=== PATIENT | female | born 1930 | race Caucasian/White ===

== ENCOUNTER 2017-01-10 17:42 | Inpatient (IN) | payer OTHER ==
[2017-01-10 17:53] VITALS: BMI 39.2
[2017-01-10] MEDS ORDERED: Sodium Chloride 0.9% 500 ML IV ONE ×2 (18:24→18:32)
[2017-01-10] MEDS ORDERED: cefTRIAXone IV 1 gm in Dextros 50 ML IV ONE (18:24)
[2017-01-10] MEDS ORDERED: Azithromycin 500 MG in Sodium Chloride 0.9% 250 ML IV STA (18:24)
[2017-01-10] MEDS ORDERED: Albuterol-Ipratrop 3 mg / 0.5 (3 ml) UD INH STA (18:25)
--- NOTE | 2017-01-10 18:32 | C.PDOC ---
History Of Present Illness 86 y/o female, with history of pneumonia, presents to the ED for evaluation of cough, congestion, wheezing, and subjective fever for the last 3 days. Denies history of diabetes. Otherwise, denies any chest pain, shortness of breath, headache, nausea, vomiting, diarrhea, abdominal pain, dizziness or lightheadedness. Time Seen by Provider: 01/10/17 18:19 Chief Complaint (Nursing): Cough, Cold, Congestion History Per: Patient History/Exam Limitations: no limitations Onset/Duration Of Symptoms: Days (3) Current Symptoms Are (Timing): Still Present Location Of Pain: None Sick Contacts (Context): None Associated Symptoms: Fever, Cough, Nasal Congestion. denies: Sore Throat, Sputum, Neck Pain, Myalgias, Nausea, Vomiting, Diarrhea Ear Symptoms: Bilateral: None Recent travel outside of the [place]: No Additional History Per: Patient Past Medical History Reviewed: Historical Data, Nursing Documentation, Vital Signs Vital Signs: Last Vital Signs Temp 101.4 F H 01/10/17 18:10 Pulse 81 01/10/17 17:53 Resp 18 01/10/17 18:10 BP 135/82 01/10/17 17:53 Pulse Ox 95 01/10/17 19:15 - Medical History PMH: Atrial Fibrillation, CAD, CHF, HTN, Hypercholesterolemia, Pneumonia Denies: Chronic Kidney Disease Family History: States: Unknown Family Hx - Social History Hx Tobacco Use: No Hx Alcohol Use: No Hx Substance Use: No - Immunization History Hx Tetanus Toxoid Vaccination: No Hx Influenza Vaccination: No Hx Pneumococcal Vaccination: No Review Of Systems Except As Marked, All Systems Reviewed And Found Negative. Constitutional: Positive for: Fever ENT: Positive for: Nose Congestion. Negative for: Ear Pain, Nose Discharge, Mouth Pain, Throat Pain, Throat Swelling Cardiovascular: Negative for: Chest Pain, Palpitations, Light Headedness Respiratory: Positive for: Cough, Wheezing. Negative for: Shortness of Breath, Hemoptysis, Sputum Gastrointestinal: Negative for: Nausea, Vomiting, Abdominal Pain Skin: Negative for: Rash, Bruising Neurological: Negative for: Headache, Dizziness Physical Exam - Physical Exam Appears: Non-toxic, No Acute Distress, Other (obese) Skin: Normal Color, Warm, Dry, No Rash Head: Atraumatic, Normacephalic Eye(s): bilateral: Normal Inspection Oral Mucosa: Moist Neck: Normal ROM, Supple Cardiovascular: Rhythm Regular, No Murmur Respiratory: No Rales, Rhonchi (scattered), Wheezing (scattered) Gastrointestinal/Abdominal: Soft, No Tenderness Extremity: Normal ROM, No Pedal Edema, No Deformity Neurological/Psych: Oriented x3, Normal Speech ED Course And Treatment - Laboratory Results Result Diagrams: 01/10/17 18:30 01/10/17 18:30 Lab Interpretation: Abnormal ECG: Interpreted By Me ECG Rhythm: V Paced ECG Interpretation: Normal, No Changes From Prior Rate From EC O2 Sat by Pulse Oximetry: 95 (RA) Pulse Ox Interpretation: Normal - Radiology CXR: Interpreted by Me CXR Interpretation: Yes: Infiltrates Progress Note: steroids, rocephin, azithromycin, duoneb Reevaluation Time: 19:13 Reassessment Condition: Improved - Physician Consult Information Outcome Of Conversation: 1900: d/w Dr. Griggs- Hospitalist [employer]- ok to obs Medical Decision Making Medical Decision Making: recurrent PNA, consider atypical PNA 2 prior PNA Disposition Doctor Will See Patient In The: Hospital Counseled Patient/Family Regarding: Studies Performed, Diagnosis - Disposition Disposition: HOSPITALIZED Disposition Time: 19:14 Condition: GOOD - Clinical Impression Clinical Impression: Pneumonia - Scribe Statement The provider has reviewed the documentation as recorded by the Scribshawn Tucker All medical record entries made by the Miriamibshwan were at my direction and personally dictated by me. I have reviewed the chart and agree that the record accurately reflects my personal performance of the history, physical exam, medical decision making, and the department course for this patient. I have also personally directed, reviewed, and agree with the discharge instructions and disposition.
[2017-01-10 18:49] LABS: BASO % 0.2 % (0.0-2.0); EOS % 0.2 % (0.0-4.0); HEMATOCRIT 38.8 % (34.0-47.0); LYMPH # 2.1 K/uL (1.0-4.3); LYMPH % 9.4 % (20.0-40.0); MEAN CORPUSCULAR HEMOGLOBIN 23.6 pg (27.0-31.0); MEAN CORPUSCULAR HGB CONC 32.1 g/dL (33.0-37.0); MEAN PLATELET VOLUME 9.3 fL (7.2-11.7); MONO # 2.9 K/uL (0.0-0.8); MONO % 12.7 % (0.0-10.0); NRBC % 0.2 % (0.0-2.0); PLATELET COUNT 307 K/uL (130-400); RED CELL DISTRIBUTION WIDTH 17.5 % (11.5-14.5)
[2017-01-10 18:50] LABS: POTASSIUM 4.9 mmol/L (3.6-5.2)
[2017-01-10] MEDS ORDERED: Albuterol-Ipratrop 3 mg / 0.5 (3 ml) UD ONE (18:50)
[2017-01-10 18:51] LABS: MEAN CELL VOLUME 73.5 fL (81.0-99.0); WHITE BLOOD COUNT 22.6 K/uL (4.8-10.8)
[2017-01-10 18:53] LABS: ALB/GLOB RATIO 0.8 (1.0-2.1); BILIRUBIN,TOTAL 1.3 mg/dL (0.2-1.3); TOTAL PROTEIN 8.5 g/dL (6.3-8.3)
[2017-01-10 18:54] LABS: CALCIUM 8.8 mg/dl (8.6-10.4)
[2017-01-10 19:05] LABS: TROPONIN I 0.037 ng/mL (0.00-0.120)
[2017-01-10] MEDS ORDERED: cefTRIAXone IV 1 gm in Dextros 50 ML IVPB ONE (19:05)
[2017-01-10 19:13] LABS: BASOPHIL 2 % (0-2); EOSINOPHIL 1 % (0-4); NEUTROPHIL 68 % (50-75); TOTAL CELLS COUNTED 100
[2017-01-10 19:15] LABS: GIANT PLATELETS PRESENT
[2017-01-10] MEDS ORDERED: Azithromycin 500mg/250ML NS 500 MG/250 ML BAG IVPB ONE (19:49)
[2017-01-10 20:12] VITALS: RESP 20
--- NOTE | 2017-01-10 23:51 | CP.PCM.HP ---
<Axel Solis - Last Filed: 01/10/17 23:57> History of Present Illness - History of Present Illness History of Present Illness: PGY-[address] Griggs HPI: This is an 86 y/o female with a PMH including HTN, CHF, Afib, iron deficiency anemia, HLD and gastritis who presents to the ED with a CC of Cough for 3 days duration. It is a productive cough with yellow/white sputum. It is associated with a fever, nasal congestion. She denies N/V, diarrhea, SOB, dizziness, GERMAN, CP, abdominal pain or blood in the urine. She denies neck pain. She has poor vision in her L.eye. Denies myalgias. No DM. Her daughter was sick with a cough and a fever last week that was treated with antibiotics and resolved. She denies recent travel. PMH: HTN, CHF, Afib, Fe def. anemia, HLD, gastritis PSH: none FH: noncontributory SH: - smoking, -drinking, Lives with her daughter Meds: Eliquis 5mg PO BID, Lasix, hydralazine, Losarten, Simvistatin All: NKA Present on Admission - Present on Admission Any Indicators Present on Admission: No History of DVT/PE: No History of Uncontrolled Diabetes: No Urinary Catheter: No Decubitus Ulcer Present: No History Surgical Site Infection Following: None Review of Systems - Constitutional Constitutional: As Per HPI - EENT Eyes: As Per HPI Ears: As Per HPI - Breasts Breasts: As Per HPI - Cardiovascular Cardiovascular: As Per HPI - Respiratory Respiratory: As Per HPI - Gastrointestinal Gastrointestinal: As Per HPI - Genitourinary Genitourinary: As Per HPI - Reproductive: Female Reproductive:Female: As Per HPI - Menstruation Menstruation: As Per HPI - Musculoskeletal Musculoskeletal: As Per HPI - Integumentary Integumentary: As Per HPI - Neurological Neurological: As Per HPI - Psychiatric Psychiatric: As Per HPI - Endocrine Endocrine: As Per HPI - Hematologic/Lymphatic Hematologic: As Per HPI Past Patient History - Infectious Disease Hx of Infectious Diseases: None - Past Medical History & Family History Past Medical History?: Yes - Past Social History Smoking Status: Never Smoked - CARDIAC Hx Atrial Fibrillation: Yes Hx Congestive Heart Failure: Yes Hx Hypercholesterolemia: Yes Hx Hypertension: Yes - PULMONARY Hx Pneumonia: Yes - NEUROLOGICAL Hx Neurological Disorder: No - HEENT Hx HEENT Problems: No Hx Blind: Yes (left eye) Hx Cataracts: Yes (left eye) - RENAL Hx Chronic Kidney Disease: No - ENDOCRINE/METABOLIC Hx Endocrine Disorders: No - HEMATOLOGICAL/ONCOLOGICAL Hx Blood Disorders: No - INTEGUMENTARY Hx Dermatological Problems: No - MUSCULOSKELETAL/RHEUMATOLOGICAL Hx Falls: No - GASTROINTESTINAL Hx Gastrointestinal Disorders: No - GENITOURINARY/GYNECOLOGICAL Hx Genitourinary Disorders: No - PSYCHIATRIC Hx Substance Use: No - SURGICAL HISTORY Hx Surgeries: Yes Other/Comment: PACEMAKER PER PATIENT [address] Moeller - ANESTHESIA Hx Anesthesia: Yes Hx Anesthesia Reactions: No Hx Malignant Hyperthermia: No Has any member of the family had a problem w/ anesthesia?: No Meds Allergies/Adverse Reactions: Allergies Allergy/AdvReac Type Severity Reaction Status Date / Time No Known Allergies Allergy Verified 01/10/17 17:53 Physical Exam - Constitutional Appears: Non-toxic, No Acute Distress - Head Exam Head Exam: ATRAUMATIC, NORMAL INSPECTION, NORMOCEPHALIC - Eye Exam Eye Exam: absent: Conjunctival injection (Keeps left eye closed. can open on commmand), Periorbital swelling, Periorbital tenderness - ENT Exam ENT Exam: Mucous Membranes Moist. absent: Mucous Membranes Dry - Neck Exam Neck exam: Negative for: Tenderness - Respiratory Exam Respiratory Exam: Decreased Breath Sounds, Wheezes - Cardiovascular Exam Cardiovascular Exam: REGULAR RHYTHM, RRR. absent: Bradycardia, Tachycardia, Gallop, Rubs - GI/Abdominal Exam GI & Abdominal Exam: Normal Bowel Sounds, Soft. absent: Distended, Firm, Guarding, Tenderness - Extremities Exam Extremities exam: Positive for: tenderness (b/l tibia), pedal pulses present. Negative for: calf tenderness - Neurological Exam Neurological exam: Alert, Oriented x3 - Psychiatric Exam Psychiatric exam: Normal Affect, Normal Mood - Skin Skin Exam: Dry, Intact, Normal Color, Warm Results - Vital Signs Recent Vital Signs: Last Vital Signs Temp 98.9 F 01/10/17 20:30 Pulse 79 01/10/17 20:30 Resp 20 01/10/17 20:30 BP 110/70 01/10/17 20:30 Pulse Ox 96 01/10/17 20:30 - Labs Result Diagrams: 01/10/17 18:30 01/10/17 18:30 Assessment & Plan - Assessment and Plan (Free Text) Assessment: 1. PNA * 8/ CXR - F/U * CT chest w/o contrast - F/U * Urine Legionella Ag - F/U * Rocephin 1g IV QD * Zithromax 500 IV QD * CBC/CMP 2. Afib * Continue home Eliquis 5mg PO BID 3. Diastolic CHF * Hold BP meds until confirmed with pharmacy or family brings in meds 4. HTN * Hold BP meds until confirmed with pharmacy or family brings in meds 5. Elevated LFT * Abdominal US - F/U * Hepatits panel 6. PPX * Eliquis 5mg PO BID * Ambulate - Date & Time Date: 01/11/17 Time: 00:12 Decision To Admit - Admit Certification Admit to Inpatient:: . - InPatient: Physician Admission Certification:: . - . Bed Request Type: Regular Admitting Physician: Sanford Griggs <Sanford Griggs Last Filed: 01/11/17 06:51> Results - Vital Signs Recent Vital Signs: Last Vital Signs Temp 98.1 F 01/11/17 00:00 Pulse 76 01/11/17 00:00 Resp 20 01/11/17 00:00 BP 120/69 01/11/17 00:00 Pulse Ox 98 01/11/17 00:00 - Labs Result Diagrams: 01/10/17 18:30 01/10/17 18:30 Labs: Laboratory Results - last 24 hr 01/11/17 01/11/17 03:17 Unknown Urine Color [place]uvia Urine Clarity Hazy Urine pH 5.0 Ur Specific [place] 1.017 Urine Protein 1+ H Urine Glucose (UA) Normal Urine Ketones Negative Urine Blood Negative Urine Nitrate Negative Urine Bilirubin Negative Urine Urobilinogen 2.0 H Ur Leukocyte Esterase 1+ H Urine WBC (Auto) 14 H Urine RBC (Auto) 3 Ur Squamous Epith Cells 17 H Hyaline Casts 3-5 H Ur L.pneumophila Ag Negative Attending/Attestation - Attestation I have personally seen and examined this patient.: Yes I have fully participated in the care of the patient.: Yes I have reviewed all pertinent clinical information: Yes Notes (Text): Assessment: * Fever with chill, elevated WBC, clinical h/o cough x3 days, CXR suspicious of LLL infiltrate as diaphragm can't be easily visualized, had sick contact. * H/o afib, tachy allan syn, s/p pacemaker, pulm htn, diastolic dysfunction, clinically not in chf * Mild elevated LFT, unclear etiology * CRI creat around 1.4 Plan * Rocephin/Zithromax iv, rapid flu * CT chest without contrast to confirm and see extent of disease * USG liver/hepatitis pannel * Hold on bp meds as bp borderline, meanwhile also confirm home dose of meds, will continue eliquis for now. * See orders for detail.
[2017-01-11 03:24] LABS: RBC URINE 3 /hpf (0-3); URINE BILIRUBIN NEGATIVE (NEGATIVE); URINE BLOOD NEGATIVE (NEGATIVE); URINE COLOR Amber (YELLOW); URINE GLUCOSE (UA) NORMAL (Normal); URINE KETONE NEGATIVE (NEGATIVE); URINE LEUKOCYTE ESTERASE 1+ Leu/uL (Negative); URINE PROTEIN 1+ mg/dL (NEGATIVE); WBC URINE 14 /hpf (0-5)
--- NOTE | 2017-01-11 07:45 | RAD ---
PROCEDURE: CHEST RADIOGRAPH, 1 VIEW HISTORY: Shortness of breath COMPARISON: 12/28/2015 FINDINGS: LUNGS: Diffuse increased interstitial lung markings suggestive for edema and or infiltrate. Patchy bibasilar airspace opacities with small left pleural effusion. Mammilated right hemidiaphragm. Right hilar prominence. PLEURA: As above. CARDIOVASCULAR: Cardiomegaly. Left-sided pacemaker. OSSEOUS STRUCTURES: Degenerative changes in the spine and shoulders. VISUALIZED UPPER ABDOMEN: Normal. OTHER FINDINGS: None. IMPRESSION: Diffuse increased interstitial lung markings suggestive for edema and or infiltrate. Patchy bibasilar airspace opacities with small left pleural effusion. Mammilated right hemidiaphragm. Right hilar prominence.
[2017-01-11 08:25] LABS: BASO % 0.2 % (0.0-2.0); HEMATOCRIT 38.2 % (34.0-47.0); LYMPH # 0.8 K/uL (1.0-4.3); LYMPH % 6.1 % (20.0-40.0); MEAN CORPUSCULAR HEMOGLOBIN 23.1 pg (27.0-31.0); MEAN CORPUSCULAR HGB CONC 31.3 g/dL (33.0-37.0); MEAN PLATELET VOLUME 9.7 fL (7.2-11.7); MONO # 0.3 K/uL (0.0-0.8); MONO % 2.4 % (0.0-10.0); PLATELET COUNT 304 K/uL (130-400); RED CELL DISTRIBUTION WIDTH 17.4 % (11.5-14.5); WHITE BLOOD COUNT 13.5 K/uL (4.8-10.8)
[2017-01-11 08:35] LABS: INR 1.3
[2017-01-11 08:38] LABS: POTASSIUM 4.6 mmol/L (3.6-5.2)
[2017-01-11 08:40] LABS: ALB/GLOB RATIO 0.8 (1.0-2.1); BILIRUBIN,TOTAL 0.5 mg/dL (0.2-1.3); TOTAL PROTEIN 8.1 g/dL (6.3-8.3)
[2017-01-11 08:41] LABS: CALCIUM 9.1 mg/dl (8.6-10.4)
--- NOTE | 2017-01-11 08:41 | CP.PCM.PN ---
<Mode Rogers - Last Filed: 01/11/17 21:38> Subjective - Date & Time of Evaluation Date of Evaluation: 01/11/17 Time of Evaluation: 13:00 - Subjective Subjective: Patient seen and examined at bedside. Patient states that she feels better than yesterday. Patient reports productive cough but denies SOB. Patient denies fevers, chills, chest pain, palpitations. Objective - Vital Signs/Intake and Output Vital Signs (last 24 hours): Temp Pulse Resp BP Pulse Ox 97.9 F 75 20 147/80 99 01/11/17 08:00 01/11/17 08:00 01/11/17 08:00 01/11/17 08:00 01/11/17 08:00 Intake and Output: 01/11/17 01/11/17 06:59 18:59 Intake Total 180 Output Total 0 Balance 180 - Medications Medications: Current Medications Apixaban (Eliquis) 5 mg PO BID [facility]ANT Famotidine (Pepcid) 20 mg PO BID [facility] Azithromycin 500 mg/ Sodium (Chloride) 250 mls @ 250 mls/hr IVPB DAILY BR[facility]ANT Ceftriaxone Sodium 1 gm/ (Sodium Chloride) 100 mls @ 100 mls/hr IVPB DAILY BRYANT - Labs Labs: 01/11/17 08:10 01/11/17 08:10 PT 14.5 SECONDS (9.7-12.2) H 01/11/17 08:10 INR 1.3 01/11/17 08:10 APTT 34 SECONDS (21-34) 01/11/17 08:10 - Constitutional Appears: No Acute Distress - Head Exam Head Exam: ATRAUMATIC, NORMAL INSPECTION, NORMOCEPHALIC - Eye Exam Eye Exam: EOMI, PERRL - ENT Exam ENT Exam: Mucous Membranes Moist - Respiratory Exam Respiratory Exam: Decreased Breath Sounds, Wheezes - Cardiovascular Exam Cardiovascular Exam: REGULAR RHYTHM, +S1, +S2 - GI/Abdominal Exam GI & Abdominal Exam: Soft, Normal Bowel Sounds - Neurological Exam Neurological Exam: Alert, Awake, Oriented x3 - Skin Skin Exam: Dry, Intact, Normal Color, Warm Assessment and Plan - Assessment and Plan (Free Text) Plan: 1. Pneumonia 01/10/17 CXR: Diffuse increased interstitial lung markings suggestive for edema and or infiltrate. Patchy bibasilar airspace opacities with small left pleural effusion. Mammilated right hemidiaphragm. Right hilar prominence. 01/11/17 CT chest without contrast: Small left pleural effusion. Prominent consolidative changes with air bronchograms seen within the superior segment of the left lower lobe with adjacent compressive atelectasis. Post treatment followup is recommended to exclude underlying lesion. More inferiorly in the left lower lobe there is adjacent atelectasis at the level of the effusion. Scattered emphysematous changes. Influenza neg Legionella neg * Rocephin 1g IV QD * Zithromax 500 IV QD 2. Afib * Continue home Eliquis 5mg PO BID 3. Diastolic CHF * Hold BP meds until confirmed with pharmacy or family brings in meds 4. HTN * Hold BP meds until confirmed with pharmacy or family brings in meds 5. Elevated LFT * Abdominal US - F/U * Hepatits panel neg 6. PPX * Eliquis 5mg PO BID * Ambulate Case discussed with Dr. Rhodes. Mode Rogers PGY1 <Ilir Rhodes - Last Filed: 02/14/17 13:03> Objective - Vital Signs/Intake and Output Vital Signs (last 24 hours): Temp Pulse Resp BP Pulse Ox 98.1 F 66 20 114/75 95 01/14/17 15:00 01/14/17 15:00 01/14/17 15:00 01/14/17 15:00 01/14/17 15:00 - Labs Labs: 01/14/17 07:11 01/14/17 07:11 PT 14.5 SECONDS (9.7-12.2) H 01/11/17 08:10 INR 1.3 01/11/17 08:10 APTT 34 SECONDS (21-34) 01/11/17 08:10 Attending/Attestation - Attestation I have personally seen and examined this patient.: Yes I have fully participated in the care of the patient.: Yes I have reviewed all pertinent clinical information, including history, physical exam and plan: Yes Notes (Text): Pneumonia Afib Acute Diastolic CHF HTN Elevated LFT - workup in progress
[2017-01-11] MEDS: Azithromycin 500 MG in Sodium Chloride 0.9% 250 ML IVPB SCH (09:33)
--- NOTE | 2017-01-11 09:37 | US ---
Abdominal ultrasound History: Elevated liver enzymes. Comparison: None available. Technique: Real-time sonography was performed through the abdomen. Findings: Liver: 12.7 centimeters in length. Increased echogenicity of the hepatic parenchymal cortex suggestive for fatty infiltration versus hepatic parenchymal disease. Clinical correlation. Gallbladder appears preserved. No calculi or sludge. Normal wall thickness of 2.7 millimeters. Negative sonographic Caballero's sign. Common bile duct measures 2.4 millimeters, within normal limits. Pancreas not well visualized. Spleen measures 5.9 x 3.2 centimeters, diminutive, otherwise preserved. Visualized aorta and IVC are grossly preserved. Right kidney: Diminutive. 9.2 x 3.7 x 4.3 centimeters. Increased echogenicity of the renal cortex suggestive for medical renal disease. No calculi or hydronephrosis. Left kidney: 8.2 x 4.9 x 4.4 centimeters. Diminutive. Increased echogenicity of the renal cortices suggestive for medical renal disease. No calculi or hydronephrosis. Impression: Increased echogenicity of the hepatic parenchymal cortex suggestive for fatty infiltration versus hepatic parenchymal disease. Clinical correlation. Limited visualization of the pancreas. Diminutive appearance of the spleen. Diminutive appearance of the bilateral kidneys. Increased echogenicity of the bilateral renal cortices suggestive for medical renal disease.
[2017-01-11 10:38] LABS: NEUTROPHIL 89 % (50-75); TOTAL CELLS COUNTED 100
--- NOTE | 2017-01-11 10:59 | CT ---
CT chest History: Cough. Comparison: X-ray dated 01/10/2017 Technique: Multiple contiguous axial images were performed through the chest without the use of intravenous contrast. Subsequently, sagittal and coronal reformatted images were obtained. This CT exam was performed using one or more of the following dose reduction techniques: Automated exposure control, adjustment of the mA and/or kV according to patient size, and/or use of iterative reconstruction technique. Findings: Emphysematous changes in the lung graf. Small left pleural effusion. Right lung: Apical pleural thickening. Scattered emphysematous changes. Scattered areas of atelectasis. Left lung: Small left pleural effusion. Prominent consolidative changes with air bronchograms seen within the superior segment of the left lower lobe with adjacent compressive atelectasis. Post treatment followup is recommended to exclude underlying lesion. More inferiorly in the left lower lobe there is adjacent atelectasis at the level of the effusion. Scattered emphysematous changes. Trachea thru central airways are patent. Left-sided pacemaker. No significant axillary adenopathy. Heterogeneous thyroid with a suggestion of a partially calcified nodule in the left lobe of the thyroid. Correlation with ultrasound may be helpful. Calcification and plaque within the aorta. Aneurysmal prominence of the ascending thoracic aorta measuring up to 4.7 centimeters. 1.5 centimeter right precarinal lymph node. Prominence of the main pulmonary artery measuring up to 4.7 centimeters. Coronary calcifications. Nodular thickening of the adrenal glands. Mild fatty atrophy of the pancreas. Small hiatal hernia. Prominent degenerative changes in the spine. Loss of height of the superior endplate of a lower thoracic vertebral body. Impression: 1. Small left pleural effusion. Prominent consolidative changes with air bronchograms seen within the superior segment of the left lower lobe with adjacent compressive atelectasis. Post treatment followup is recommended to exclude underlying lesion. More inferiorly in the left lower lobe there is adjacent atelectasis at the level of the effusion. Scattered emphysematous changes. 2. Emphysematous changes in the lung graf. 3. Heterogeneous thyroid with a suggestion of a partially calcified nodule in the left lobe of the thyroid. Correlation with ultrasound may be helpful. 4. Calcification and plaque within the aorta. Aneurysmal prominence of the ascending thoracic aorta measuring up to 4.7 centimeters. 5. 1.5 centimeter right precarinal lymph node. 6. Prominence of the main pulmonary artery measuring up to 4.7 centimeters. 7. Coronary calcifications. 8. Nodular thickening of the adrenal glands. 9. Mild fatty atrophy of the pancreas. 10. Small hiatal hernia. 11. Prominent degenerative changes in the spine. Loss of height of the superior endplate of a lower thoracic vertebral body.
[2017-01-11] MEDS ORDERED: Sodium Chloride 0.9% 1,000 ML IV ONE (13:03)
[2017-01-12 08:21] LABS: BASO # 0.1 K/uL (0.0-0.2); BASO % 0.6 % (0.0-2.0); HEMATOCRIT 34.7 % (34.0-47.0); LYMPH # 1.5 K/uL (1.0-4.3); LYMPH % 8.8 % (20.0-40.0); MEAN CELL VOLUME 74.2 fL (81.0-99.0); MEAN CORPUSCULAR HEMOGLOBIN 23.6 pg (27.0-31.0); MEAN CORPUSCULAR HGB CONC 31.8 g/dL (33.0-37.0); MEAN PLATELET VOLUME 9.4 fL (7.2-11.7); MONO # 1.3 K/uL (0.0-0.8); MONO % 7.7 % (0.0-10.0); PLATELET COUNT 299 K/uL (130-400); RED CELL DISTRIBUTION WIDTH 17.6 % (11.5-14.5); WHITE BLOOD COUNT 17.1 K/uL (4.8-10.8)
[2017-01-12 08:37] LABS: ALB/GLOB RATIO 0.7 (1.0-2.1); BILIRUBIN,TOTAL 0.4 mg/dL (0.2-1.3); CALCIUM 8.4 mg/dl (8.6-10.4); TOTAL PROTEIN 7.1 g/dL (6.3-8.3)
[2017-01-12] MEDS ORDERED: Ipratropium 0.02% Inhal Soln (0.5 mg/2.5 ml) UD IH PRN (08:38)
[2017-01-12 10:08] LABS: NEUTROPHIL 85 % (50-75); TOTAL CELLS COUNTED 100
[2017-01-12] MEDS: Azithromycin 500 MG in Sodium Chloride 0.9% 250 ML IVPB SCH (10:33)
[2017-01-12] MEDS: Metoprolol Succinate 25 mg XL Tab PO SCH (12:05)
--- NOTE | 2017-01-12 13:45 | CP.PCM.PN ---
<Mode Rogers - Last Filed: 01/12/17 15:50> Subjective - Date & Time of Evaluation Date of Evaluation: 01/12/17 Time of Evaluation: 11:00 - Subjective Subjective: PGY1 Progress Note for Dr. Rhodes Patient seen and examined at bedside. Patient reports no chest pain or shortness of breath. Patient complains of productive cough with white sputum. Patient denies fevers, chills. Objective - Vital Signs/Intake and Output Vital Signs (last 24 hours): Temp Pulse Resp BP Pulse Ox 97.3 F L 83 20 155/96 H 95 01/12/17 08:00 01/12/17 08:00 01/12/17 08:00 01/12/17 12:05 01/12/17 08:00 Intake and Output: 01/12/17 01/12/17 06:59 18:59 Intake Total 1100 780 Balance 1100 780 - Medications Medications: Current Medications Apixaban (Eliquis) 5 mg PO BID [facility] Last Admin: 01/12/17 09:29 Dose: 5 mg Famotidine (Pepcid) 20 mg PO BID [facility] Last Admin: 01/12/17 09:28 Dose: 20 mg Furosemide (Lasix) 40 mg PO DAILY [facility] Last Admin: 01/12/17 12:05 Dose: 40 mg Azithromycin 500 mg/ Sodium (Chloride) 250 mls @ 250 mls/hr IVPB DAILY [facility] Last Admin: 01/12/17 10:33 Dose: 250 mls/hr Ceftriaxone Sodium 1 gm/ (Sodium Chloride) 100 mls @ 100 mls/hr IVPB DAILY [facility] Last Admin: 01/12/17 09:29 Dose: 100 mls/hr Ipratropium [place] (Atrovent) 0.5 mg IH RQ6 PRN PRN Reason: Shortness of Breath Metoprolol Succinate (Toprol Xl) 25 mg PO DAILY [facility] Last Admin: 01/12/17 12:05 Dose: 25 mg - Labs Labs: 01/12/17 08:05 01/12/17 08:05 PT 14.5 SECONDS (9.7-12.2) H 01/11/17 08:10 INR 1.3 01/11/17 08:10 APTT 34 SECONDS (21-34) 01/11/17 08:10 - Constitutional Appears: No Acute Distress - Head Exam Head Exam: ATRAUMATIC, NORMAL INSPECTION, NORMOCEPHALIC - Eye Exam Eye Exam: EOMI, PERRL - ENT Exam ENT Exam: Mucous Membranes Moist - Respiratory Exam Respiratory Exam: Decreased Breath Sounds, Wheezes - Cardiovascular Exam Cardiovascular Exam: REGULAR RHYTHM, +S1, +S2 - GI/Abdominal Exam GI & Abdominal Exam: Soft, Normal Bowel Sounds. absent: Tenderness - Extremities Exam Additional comments: Varicose veins - Neurological Exam Neurological Exam: Alert, Awake, Oriented x3 - Skin Skin Exam: Dry, Intact, Normal Color, Warm Assessment and Plan - Assessment and Plan (Free Text) Plan: 1. Pneumonia 01/10/17 CXR: Diffuse increased interstitial lung markings suggestive for edema and or infiltrate. Patchy bibasilar airspace opacities with small left pleural effusion. Mammilated right hemidiaphragm. Right hilar prominence. 01/11/17 CT chest without contrast: Small left pleural effusion. Prominent consolidative changes with air bronchograms seen within the superior segment of the left lower lobe with adjacent compressive atelectasis. Post treatment followup is recommended to exclude underlying lesion. More inferiorly in the left lower lobe there is adjacent atelectasis at the level of the effusion. Scattered emphysematous changes. Influenza neg Legionella neg * Rocephin 1g IV QD * Zithromax 500 IV QD * Atrovent Q6H INH * Mucinex 600 mg PO BID 2. Afib * Continue home Eliquis 5mg PO BID 3. Diastolic CHF * Lasix 40 mg PO daily * Need to confirm with [facility] [place] outpatient pharmacy 4. HTN * Toprol XL 25 mg PO daily * Need to confirm BP meds with [facility] [place] outpatient pharmacy 5. Elevated LFT * Abdominal US (01/10/17) - evidence of fatty infiltration of liver parenchyma vs hepatic parenchymal disease * Hepatits panel neg 6. Ascending Aortic Aneurysm * Incidental 4.[address] chest * Consulted Dr. Lund. Help appreciated. 7. PPX * Eliquis 5mg PO BID * Ambulate Case discussed with Dr. Rhodes. Mode Rogers PGY1 <Ilir Rhodes - Last Filed: 02/14/17 13:04> Objective - Vital Signs/Intake and Output Vital Signs (last 24 hours): Temp Pulse Resp BP Pulse Ox 98.1 F 66 20 114/75 95 01/14/17 15:00 01/14/17 15:00 01/14/17 15:00 01/14/17 15:00 01/14/17 15:00 - Labs Labs: 01/14/17 07:11 01/14/17 07:11 PT 14.5 SECONDS (9.7-12.2) H 01/11/17 08:10 INR 1.3 01/11/17 08:10 APTT 34 SECONDS (21-34) 01/11/17 08:10 Attending/Attestation - Attestation I have personally seen and examined this patient.: Yes I have fully participated in the care of the patient.: Yes I have reviewed all pertinent clinical information, including history, physical exam and plan: Yes Notes (Text): Pneumonia Afib Acute Diastolic CHF HTN Elevated LFT - workup in progress
--- NOTE | 2017-01-12 16:47 | CP.PCM.CON ---
History of Present Illness - History of Present Illness History of Present Illness: Vascular Surgery - Dr. Lund 86yo F w/ hx of HTN, CHF, Afib, BECCA, HL, who presented to on 01/10 with productive cough x3days. Per pt family members at bedside she has had a cough for 3 days which was productive of yellow sputum. She had associated fevers, chills, and congestion. Pt denies any N/V, SOB/Chest pain, Abdominal pain, Diarrhea. Pt had CXR done in the ED which showed a LLL infiltrate. She was admitted to the hospital and started on Abx for Pneumonia. She subsequently underwent CT Chest which confirmed a LLL pneumonia, an incidentally found to a 4.7cm Ascending thoracic aortic aneurysm. Surgery is consulted for the aneurysm. PMH: HTN, CHF(diastolic), Afib, BECCA, HL, Gastritis PSH: Pacemaker (Dr. Moeller) Nonsmoker Meds; Eliquis, Lasix, Hydralazine, Losartan, Simvastatin NKDA Review of Systems - Review of Systems All systems: reviewed and no additional remarkable complaints except (as per HPI ) Past Patient History - Infectious Disease Hx of Infectious Diseases: None - Past Medical History & Family History Past Medical History?: Yes - Past Social History Smoking Status: Never Smoked - CARDIAC Hx Atrial Fibrillation: Yes Hx Congestive Heart Failure: Yes Hx Hypercholesterolemia: Yes Hx Hypertension: Yes - PULMONARY Hx Pneumonia: Yes - NEUROLOGICAL Hx Neurological Disorder: No - HEENT Hx HEENT Problems: No Hx Blind: Yes (left eye) Hx Cataracts: Yes (left eye) - RENAL Hx Chronic Kidney Disease: No - ENDOCRINE/METABOLIC Hx Endocrine Disorders: No - HEMATOLOGICAL/ONCOLOGICAL Hx Blood Disorders: No - INTEGUMENTARY Hx Dermatological Problems: No - MUSCULOSKELETAL/RHEUMATOLOGICAL Hx Falls: No - GASTROINTESTINAL Hx Gastrointestinal Disorders: No - GENITOURINARY/GYNECOLOGICAL Hx Genitourinary Disorders: No - PSYCHIATRIC Hx Substance Use: No - SURGICAL HISTORY Hx Surgeries: Yes Other/Comment: PACEMAKER PER PATIENT [address] Moeller - ANESTHESIA Hx Anesthesia: Yes Hx Anesthesia Reactions: No Hx Malignant Hyperthermia: No Has any member of the family had a problem w/ anesthesia?: No Meds Allergies/Adverse Reactions: Allergies Allergy/AdvReac Type Severity Reaction Status Date / Time No Known Allergies Allergy Verified 01/10/17 17:53 - Medications Medications: Current Medications Apixaban (Eliquis) 5 mg PO BID [facility] Last Admin: 01/12/17 09:29 Dose: 5 mg Famotidine (Pepcid) 20 mg PO BID [facility] Last Admin: 01/12/17 09:28 Dose: 20 mg Furosemide (Lasix) 40 mg PO DAILY [facility] Last Admin: 01/12/17 12:05 Dose: 40 mg Guaifenesin (Mucinex La) 600 mg PO BID [facility] Azithromycin 500 mg/ Sodium (Chloride) 250 mls @ 250 mls/hr IVPB DAILY [facility] Last Admin: 01/12/17 10:33 Dose: 250 mls/hr Ceftriaxone Sodium 1 gm/ (Sodium Chloride) 100 mls @ 100 mls/hr IVPB DAILY [facility] Last Admin: 01/12/17 09:29 Dose: 100 mls/hr Ipratropium [place] (Atrovent) 0.5 mg IH RQ6 PRN PRN Reason: Shortness of Breath Metoprolol Succinate (Toprol Xl) 25 mg PO DAILY [facility] Last Admin: 01/12/17 12:05 Dose: 25 mg Physical Exam - Constitutional Appears: No Acute Distress - Head Exam Head Exam: ATRAUMATIC, NORMAL INSPECTION, NORMOCEPHALIC - Eye Exam Eye Exam: Normal appearance - Respiratory Exam Respiratory Exam: NORMAL BREATHING PATTERN. absent: Respiratory Distress - Neurological Exam Neurological exam: Alert, Oriented x3 - Psychiatric Exam Psychiatric exam: Normal Affect, Normal Mood - Skin Skin Exam: Dry, Intact Results - Vital Signs Recent Vital Signs: Last Vital Signs Temp 97.3 F L 01/12/17 08:00 Pulse 83 01/12/17 08:00 Resp 20 01/12/17 08:00 BP 155/96 H 01/12/17 12:05 Pulse Ox 95 01/12/17 08:00 - Labs Result Diagrams: 01/12/17 08:05 01/12/17 08:05 Labs: Laboratory Results - last 24 hr 01/12/17 01/12/17 08:05 08:05 WBC 17.1 H RBC 4.68 Hgb 11.1 Hct 34.7 MCV 74.2 L MCH 23.6 L MCHC 31.8 L RDW 17.6 H Plt Count 299 MPV 9.4 Neut % (Auto) 82.9 H Lymph % (Auto) 8.8 L [place] % (Auto) 7.7 Eos % (Auto) 0.0 Baso % (Auto) 0.6 Neut # 14.2 H Lymph # 1.5 [place] # 1.3 H Eos # 0.0 Baso # 0.1 Neutrophils % (Manual) 85 H Band Neutrophils % 1 Lymphocytes % (Manual) 7 L Monocytes % (Manual) 7 Platelet Estimate Normal Polychromasia Slight Hypochromasia (manual) Slight Poikilocytosis (manual Slight Anisocytosis (manual) Slight Microcytosis (manual) Slight Ovalocytes Slight Sodium 143 Potassium 5.0 Chloride 103 Carbon Dioxide 29 Anion Gap 16 BUN 24 H Creatinine 1.2 Est GFR ( Amer) 51 Est GFR (Non-Af Amer) 42 Random Glucose 98 Calcium 8.4 L Total Bilirubin 0.4 AST 90 H ALT 79 H Alkaline Phosphatase 86 Total Protein 7.1 Albumin 3.0 L Globulin 4.1 H Albumin/Globulin Ratio 0.7 L - Imaging and Cardiology CT scan - chest Status: Image reviewed by me, Report reviewed by me Assessment & Plan - Assessment and Plan (Free Text) Assessment: 86 yo F w/ HTN, CHF, AFib on Eliquis, admitted with LLL Pneumonia, incidentally found to have 4.7cm ascending thoracic aortic aneurysm -Continue Surveillance of the aneurysm with repeat CT Chest in 6 months -Surgical intervention is generally considered at a size of 5.5cm -No surgical intervention is needed at this time -Continue care as per medical and cardiology teams DW Dr. Ashely Chowdhury PGY3
[2017-01-12] MEDS: guaiFENesin 600 mg ER Tab PO SCH (17:35)
[2017-01-13 07:17] LABS: BASO % 0.4 % (0.0-2.0); EOS % 0.2 % (0.0-4.0); HEMATOCRIT 36.9 % (34.0-47.0); LYMPH # 1.8 K/uL (1.0-4.3); LYMPH % 14.2 % (20.0-40.0); MEAN CELL VOLUME 74.2 fL (81.0-99.0); MEAN CORPUSCULAR HEMOGLOBIN 23.2 pg (27.0-31.0); MEAN CORPUSCULAR HGB CONC 31.3 g/dL (33.0-37.0); MEAN PLATELET VOLUME 9.4 fL (7.2-11.7); MONO # 1.4 K/uL (0.0-0.8); MONO % 10.5 % (0.0-10.0); NRBC % 0.1 % (0.0-2.0); RED CELL DISTRIBUTION WIDTH 17.7 % (11.5-14.5); WHITE BLOOD COUNT 12.9 K/uL (4.8-10.8)
[2017-01-13 07:40] LABS: POTASSIUM 5.2 mmol/L (3.6-5.2)
[2017-01-13 07:42] LABS: ALB/GLOB RATIO 0.8 (1.0-2.1); BILIRUBIN,TOTAL 0.5 mg/dL (0.2-1.3); TOTAL PROTEIN 7.1 g/dL (6.3-8.3)
[2017-01-13 07:43] LABS: CALCIUM 8.5 mg/dl (8.6-10.4)
--- NOTE | 2017-01-13 09:25 | CP.PCM.PN ---
<Mode Rogers - Last Filed: 01/13/17 20:42> Subjective - Date & Time of Evaluation Date of Evaluation: 01/13/17 Time of Evaluation: 07:00 - Subjective Subjective: PGY-[address] Keren Tucker Patient seen and examined at bedside. Patient reports that she feels a little better than yesterday. Patient is not short of breath but states that she still coughs up white sputum. Patient denies fevers, chills, nausea, vomiting, chest pain, abdominal pain, constipation, diarrhea, dysuria. Objective - Vital Signs/Intake and Output Vital Signs (last 24 hours): Temp Pulse Resp BP Pulse Ox 98.4 F 71 20 150/76 96 01/13/17 08:00 01/13/17 08:00 01/13/17 08:00 01/13/17 08:00 01/13/17 08:00 Intake and Output: 01/13/17 01/13/17 06:59 18:59 Intake Total 500 Balance 500 - Medications Medications: Current Medications Apixaban (Eliquis) 5 mg PO BID [facility] Last Admin: 01/12/17 17:35 Dose: 5 mg Famotidine (Pepcid) 20 mg PO BID [facility] Last Admin: 01/12/17 17:35 Dose: 20 mg Furosemide (Lasix) 40 mg PO DAILY [facility] Last Admin: 01/12/17 12:05 Dose: 40 mg Guaifenesin (Mucinex La) 600 mg PO BID [facility] Last Admin: 01/12/17 17:35 Dose: 600 mg Azithromycin 500 mg/ Sodium (Chloride) 250 mls @ 250 mls/hr IVPB DAILY [facility] Last Admin: 01/12/17 10:33 Dose: 250 mls/hr Ceftriaxone Sodium 1 gm/ (Sodium Chloride) 100 mls @ 100 mls/hr IVPB DAILY [facility] Last Admin: 01/12/17 09:29 Dose: 100 mls/hr Ipratropium [place] (Atrovent) 0.5 mg IH RQ6 PRN PRN Reason: Shortness of Breath Metoprolol Succinate (Toprol Xl) 25 mg PO DAILY [facility] Last Admin: 01/12/17 12:05 Dose: 25 mg - Labs Labs: 01/13/17 07:00 01/13/17 07:00 PT 14.5 SECONDS (9.7-12.2) H 08/05/17 08:10 INR 1.3 01/11/17 08:10 APTT 34 SECONDS (21-34) 01/11/17 08:10 - Constitutional Appears: No Acute Distress - Head Exam Head Exam: ATRAUMATIC, NORMAL INSPECTION, NORMOCEPHALIC - Eye Exam Eye Exam: EOMI, PERRL - ENT Exam ENT Exam: Mucous Membranes Moist - Respiratory Exam Respiratory Exam: Rhonchi, Wheezes (left>right) - Cardiovascular Exam Cardiovascular Exam: REGULAR RHYTHM, +S1, +S2 - GI/Abdominal Exam GI & Abdominal Exam: Soft, Normal Bowel Sounds. absent: Tenderness - Extremities Exam Extremities Exam: Pedal Edema Additional comments: varicose veins b/l LE - Neurological Exam Neurological Exam: Alert, Awake, Oriented x3 - Skin Skin Exam: Dry, Intact, Normal Color, Warm Assessment and Plan - Assessment and Plan (Free Text) Plan: 1. Pneumonia 01/10/17 CXR: Diffuse increased interstitial lung markings suggestive for edema and or infiltrate. Patchy bibasilar airspace opacities with small left pleural effusion. Mammilated right hemidiaphragm. Right hilar prominence. 01/11/17 CT chest without contrast: Small left pleural effusion. Prominent consolidative changes with air bronchograms seen within the superior segment of the left lower lobe with adjacent compressive atelectasis. Post treatment followup is recommended to exclude underlying lesion. More inferiorly in the left lower lobe there is adjacent atelectasis at the level of the effusion. Scattered emphysematous changes. Influenza neg Legionella neg * Rocephin 1g IV QD * Zithromax 500 IV QD * Atrovent Q6H INH * Mucinex 600 mg PO BID 2. Afib * Continue home Eliquis 5mg PO BID 3. Diastolic CHF * Lasix 40 mg PO daily * F/u Echo * 01/13/17: Confirmed with [facility] that patient has prescribed Lasix 20 mg PO last prescribed in 2013. The only medication that she gets from them is the Losartan 50 mg PO qD last picked up 01/10/17. branch office manager called to say that the patient gets Elliquis from [facility]. 4. HTN * Toprol XL 25 mg PO daily * Losartan 50 mg PO daily 5. Elevated LFT * Abdominal US (01/10/17) - evidence of fatty infiltration of liver parenchyma vs hepatic parenchymal disease * Hepatits panel neg 6. Ascending Aortic Aneurysm * Incidental 4.[address] chest * Consulted Dr. Lund. Help appreciated. * Surgery team recommended monitoring with follow up CT in 6 months. 7. PPX * Eliquis 5mg PO BID * Ambulate 01/12/17: Call placed to patient's daughter by Shelbie Marketing Operations Associate who told her that the pharmacy they use is the [facility]. 01/13/17: Call placed to [facility] outpatient pharmacy where they revealed that they have 3 prescriptions on file from November 2016: Hydralazine, Losartan, and Eliquis. Patient has only requested the Losartan and has not filled the other prescriptions. branch office manager later contacted the daughter to see if they also go to another pharmacy and was told that the patient gets Eliquis from [facility]. Case discussed with Dr. Keren Rogers PGY1 <Leonardo Tucker - Last Filed: 01/14/17 21:39> Objective - Vital Signs/Intake and Output Vital Signs (last 24 hours): Temp Pulse Resp BP Pulse Ox 98.1 F 66 20 114/75 95 01/14/17 15:00 01/14/17 15:00 01/14/17 15:00 01/14/17 15:00 01/14/17 15:00 Intake and Output: 01/14/17 01/15/17 18:59 06:59 Intake Total 650 Balance 650 - Labs Labs: 01/14/17 07:11 01/14/17 07:11 PT 14.5 SECONDS (9.7-12.2) H 01/11/17 08:10 INR 1.3 01/11/17 08:10 APTT 34 SECONDS (21-34) 01/11/17 08:10 Attending/Attestation - Attestation I have personally seen and examined this patient.: Yes I have fully participated in the care of the patient.: Yes I have reviewed all pertinent clinical information, including history, physical exam and plan: Yes Notes (Text): 01/14/17 21:39 Patient was seen and examined on 01/13/17. Exam, assessment and plan were thoroughly gone over with the resident. Leonardo Tcuker D.O.
[2017-01-13] MEDS: guaiFENesin 600 mg ER Tab PO SCH ×2 (09:35→18:03)
[2017-01-13] MEDS: Metoprolol Succinate 25 mg XL Tab PO SCH (09:35)
[2017-01-13] MEDS: Azithromycin 500 MG in Sodium Chloride 0.9% 250 ML IVPB SCH (09:42)
[2017-01-13] MEDS ORDERED: Pneumococcal 23-Valent Vaccine IM ONE (10:00)
--- NOTE | 2017-01-13 13:10 | CARD ---
APPROVED REPORT EKG Measurement Heart [id number] <Conclusion> Ventricular-paced rhythm Abnormal ECG
[2017-01-13] MEDS: Saccharomyces Boulardi 250 mg Cap PO SCH (18:03)
[2017-01-14 07:19] LABS: BASO # 0.1 K/uL (0.0-0.2); BASO % 1.1 % (0.0-2.0); EOS # 0.1 K/uL (0.0-0.7); EOS % 0.9 % (0.0-4.0); LYMPH # 1.7 K/uL (1.0-4.3); MEAN CELL VOLUME 74.2 fL (81.0-99.0); MEAN CORPUSCULAR HEMOGLOBIN 23.5 pg (27.0-31.0); MEAN CORPUSCULAR HGB CONC 31.7 g/dL (33.0-37.0); MEAN PLATELET VOLUME 9.5 fL (7.2-11.7); MONO # 1.1 K/uL (0.0-0.8); MONO % 10.4 % (0.0-10.0); RED CELL DISTRIBUTION WIDTH 17.5 % (11.5-14.5); WHITE BLOOD COUNT 10.5 K/uL (4.8-10.8)
[2017-01-14 07:46] LABS: IRON 25 ug/dL (37-170)
[2017-01-14 08:05] LABS: POTASSIUM 4.5 mmol/L (3.6-5.2)
[2017-01-14 08:07] LABS: BILIRUBIN,TOTAL 0.5 mg/dL (0.2-1.3)
[2017-01-14 08:08] LABS: ALB/GLOB RATIO 0.8 (1.0-2.1); CALCIUM 8.5 mg/dl (8.6-10.4); TOTAL PROTEIN 6.8 g/dL (6.3-8.3)
[2017-01-14 08:16] VITALS: PULSE 66
[2017-01-14] MEDS: guaiFENesin 600 mg ER Tab PO SCH ×2 (09:34→17:14)
[2017-01-14] MEDS: Metoprolol Succinate 25 mg XL Tab PO SCH (09:35)
[2017-01-14] MEDS: Saccharomyces Boulardi 250 mg Cap PO SCH ×2 (09:35→17:14)
[2017-01-14] MEDS: Azithromycin 500 MG in Sodium Chloride 0.9% 250 ML IVPB SCH (09:41)
--- NOTE | 2017-01-14 09:51 | CP.PCM.PN ---
<Mode Rogres - Last Filed: 01/14/17 14:53> Subjective - Date & Time of Evaluation Date of Evaluation: 01/14/17 Time of Evaluation: 07:10 - Subjective Subjective: PGY-[address] Keren Tucker Patient seen and examined at bedside. Patient reports feeling better. Patient denies SOB and coughing. Patient reports last BM was yesterday and was formed. Objective - Vital Signs/Intake and Output Vital Signs (last 24 hours): Temp Pulse Resp BP Pulse Ox 98.5 F 66 20 157/87 H 96 01/14/17 08:14 01/14/17 08:14 01/14/17 08:14 01/14/17 09:35 01/14/17 08:14 - Medications Medications: Current Medications Apixaban (Eliquis) 5 mg PO BID [facility] Last Admin: 01/14/17 09:35 Dose: 5 mg Famotidine (Pepcid) 20 mg PO BID [facility] Last Admin: 01/14/17 09:35 Dose: 20 mg Ferrous Sulfate (Feosol) 325 mg PO DAILY [facility] Last Admin: 01/14/17 09:34 Dose: 325 mg Furosemide (Lasix) 40 mg PO DAILY [facility] Last Admin: 01/14/17 09:35 Dose: 40 mg Guaifenesin (Mucinex La) 600 mg PO BID [facility] Last Admin: 01/14/17 09:34 Dose: 600 mg Azithromycin 500 mg/ Sodium (Chloride) 250 mls @ 250 mls/hr IVPB DAILY [facility] Last Admin: 01/13/17 09:42 Dose: 250 mls/hr Ceftriaxone Sodium 1 gm/ (Sodium Chloride) 100 mls @ 100 mls/hr IVPB DAILY [facility] Last Admin: 01/13/17 09:42 Dose: 100 mls/hr Ipratropium [place] (Atrovent) 0.5 mg IH RQ6 PRN PRN Reason: Shortness of Breath Losartan Potassium (Cozaar) 50 mg PO DAILY [facility] Last Admin: 01/14/17 09:35 Dose: 50 mg Metoprolol Succinate (Toprol Xl) 25 mg PO DAILY [facility] Last Admin: 01/14/17 09:35 Dose: 25 mg Saccharomyces Boulardii (Florastor) 250 mg PO BID [facility] Last Admin: 01/14/17 09:35 Dose: 250 mg - Labs Labs: 01/14/17 07:11 01/14/17 07:11 PT 14.5 SECONDS (9.7-12.2) H 01/11/17 08:10 INR 1.3 01/11/17 08:10 APTT 34 SECONDS (21-34) 01/11/17 08:10 - Head Exam Head Exam: ATRAUMATIC, NORMAL INSPECTION, NORMOCEPHALIC - Eye Exam Eye Exam: EOMI, PERRL - ENT Exam ENT Exam: Mucous Membranes Moist - Respiratory Exam Respiratory Exam: Clear to Ausculation Bilateral - Cardiovascular Exam Cardiovascular Exam: REGULAR RHYTHM, +S1, +S2 - GI/Abdominal Exam GI & Abdominal Exam: Distended, Soft, Tenderness (slight tenderness left sided) , Normal Bowel Sounds - Extremities Exam Additional comments: varicose veins b/l - Neurological Exam Neurological Exam: Alert, Awake, Oriented x3 - Skin Skin Exam: Dry, Intact, Warm Assessment and Plan - Assessment and Plan (Free Text) Plan: 1. Pneumonia 01/10/17 CXR: Diffuse increased interstitial lung markings suggestive for edema and or infiltrate. Patchy bibasilar airspace opacities with small left pleural effusion. Mammilated right hemidiaphragm. Right hilar prominence. 01/11/17 CT chest without contrast: Small left pleural effusion. Prominent consolidative changes with air bronchograms seen within the superior segment of the left lower lobe with adjacent compressive atelectasis. Post treatment followup is recommended to exclude underlying lesion. More inferiorly in the left lower lobe there is adjacent atelectasis at the level of the effusion. Scattered emphysematous changes. Influenza neg Legionella neg * Rocephin 1g IV QD * Zithromax 500 IV QD * Atrovent Q6H INH * Mucinex 600 mg PO BID 2. Afib * Continue home Eliquis 5mg PO BID 3. Diastolic CHF * Lasix 40 mg PO daily * F/u Echo * 01/13/17: Confirmed with [facility] that patient has prescribed Lasix 20 mg PO last prescribed in 2013. The only medication that she gets from them is the Losartan 50 mg PO qD last picked up 01/10/17. assistant auto center manager called to say that the patient gets Elliquis from [facility]. 4. HTN * Toprol XL 25 mg PO daily * Losartan 50 mg PO daily 5. Elevated LFT * Abdominal US (01/10/17) - evidence of fatty infiltration of liver parenchyma vs hepatic parenchymal disease * Hepatits panel neg 6. Ascending Aortic Aneurysm * Incidental 4.[address] chest * Consulted Dr. Lund. Help appreciated. * Surgery team recommended monitoring with follow up CT in 6 months. 7. PPX * Eliquis 5mg PO BID * Ambulate 01/12/17: Call placed to patient's daughter by Shelbie Cadmium Burner who told her that the pharmacy they use is the [facility]. 01/13/17: Call placed to [facility] outpatient pharmacy where they revealed that they have 3 prescriptions on file from November 2016: Hydralazine, Losartan, and Eliquis. Patient has only requested the Losartan and has not filled the other prescriptions. assistant auto center manager later contacted the daughter to see if they also go to another pharmacy and was told that the patient gets Eliquis from [facility]. Case discussed with Dr. Keren Rogers PGY1 <Leonardo Tucker - Last Filed: 01/14/17 16:05> Objective - Vital Signs/Intake and Output Vital Signs (last 24 hours): Temp Pulse Resp BP Pulse Ox 98.5 F 66 20 157/87 H 96 01/14/17 08:14 01/14/17 08:14 01/14/17 08:14 01/14/17 09:35 01/14/17 08:14 Intake and Output: 01/14/17 01/14/17 06:59 18:59 Intake Total 650 Balance 650 - Medications Medications: Current Medications Apixaban (Eliquis) 5 mg PO BID [facility] Last Admin: 01/14/17 09:35 Dose: 5 mg Famotidine (Pepcid) 20 mg PO BID [facility] Last Admin: 01/14/17 09:35 Dose: 20 mg Ferrous Sulfate (Feosol) 325 mg PO DAILY [facility] Last Admin: 01/14/17 09:34 Dose: 325 mg Furosemide (Lasix) 40 mg PO DAILY [facility] Last Admin: 01/14/17 09:35 Dose: 40 mg Guaifenesin (Mucinex La) 600 mg PO BID [facility] Last Admin: 01/14/17 09:34 Dose: 600 mg Azithromycin 500 mg/ Sodium (Chloride) 250 mls @ 250 mls/hr IVPB DAILY [facility] Last Admin: 01/14/17 09:41 Dose: 250 mls/hr Ceftriaxone Sodium 1 gm/ (Sodium Chloride) 100 mls @ 100 mls/hr IVPB DAILY [facility] Last Admin: 01/14/17 09:41 Dose: 100 mls/hr Ipratropium [place] (Atrovent) 0.5 mg IH RQ6 PRN PRN Reason: Shortness of Breath Losartan Potassium (Cozaar) 50 mg PO DAILY [facility] Last Admin: 01/14/17 09:35 Dose: 50 mg Metoprolol Succinate (Toprol Xl) 25 mg PO DAILY [facility] Last Admin: 01/14/17 09:35 Dose: 25 mg Saccharomyces Boulardii (Florastor) 250 mg PO BID [facility] Last Admin: 01/14/17 09:35 Dose: 250 mg - Labs Labs: 01/14/17 07:11 01/14/17 07:11 PT 14.5 SECONDS (9.7-12.2) H 01/11/17 08:10 INR 1.3 01/11/17 08:10 APTT 34 SECONDS (21-34) 01/11/17 08:10 Attending/Attestation - Attestation I have personally seen and examined this patient.: Yes I have fully participated in the care of the patient.: Yes I have reviewed all pertinent clinical information, including history, physical exam and plan: Yes Notes (Text): 01/14/17 15:39 Patient was seen and examined at 3:30 PM. 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 The following instructions should be provided to patient and included in the discharge summary by the resident: 1). Schedule follow up with the [facility] to take place in the next 7 to 10 days. Phone number is [phone]. 2). You were provided with the following prescriptions by the medical office rep: Eliquis 5 mg, 1 tablet by mouth twice a day, Disp #60, NO refills Ciprofloxacin 500 mg, 1 tablet by mouth twice a day, Disp #12, NO refills Ferrous Sulfate 325 mg, 1 tablet by mouth 1x/day, Disp #30, NO refills Furosemide 40 mg, 1 tablet by mouth 1x/day with breakfast, Disp #30, NO refills Losartan 50 mg, 1 tablet by mouth 1x/day with dinner, Disp #30, NO refills Metoprolol Succinate 25 mg, 1 tablet by mouth 1x/day with lunch, Disp 330, NO refills 3). You will need to have a repeat CT Chest in 6 months to make sure that your Aortic Aneurysm does not increase in size. This can be arranged through the [facility]. 4). You will need to have an Ultrasound of your Thyroid for further evaluation of a nodule on your left side. This can be arranged through the [facility] upon your follow up with them in 7 to 10 days. 5). You will need to have repeat blood work through the [facility] and if your Liver Enzymes are ok, then consideration can be made to restart your Crestor. 6). You will need to have follow up with a [facility] through the [facility] for your history of Atrial Fibrillation, Diastolic Heart Failure , and Aortic Aneurysm. 7). You will need to have repeat Chest X Ray in 2 months to make sure that your pneumonia has resolved. This can be arranged through the [facility]. Leonardo Tucker D.O. 01/14/17 15:49
[2017-01-14 15:54] VITALS: BP 114/75; TEMP 98.1; O2SAT 95
--- NOTE | 2017-01-14 16:39 | CP.PCM.DIS ---
<Mode Rogers S - Last Filed: 01/14/17 18:34> Provider - Provider Date of Admission: 01/10/17 19:10 Attending physician: Sanford Griggs MD Time Spent in preparation of Discharge (in minutes): 33 Diagnosis - Discharge Diagnosis (1) Diastolic CHF Status: Chronic (2) Elevated LFTs Status: Acute (3) Ascending aortic aneurysm Status: Chronic (4) Prophylactic measure Status: Acute (5) A-fib Status: Acute (6) Iron deficiency anemia Status: Chronic (7) Pneumonia Status: Acute (8) Hypertension Status: Chronic Hospital Course - Lab Results Lab Results: Most Recent Lab Values WBC 10.5 K/uL (4.8-10.8) 01/14/17 07:11 RBC 4.86 Mil/uL (3.80-5.20) 01/14/17 07:11 Hgb 11.4 g/dL (11.0-16.0) 01/14/17 07:11 Hct 36.0 % (34.0-47.0) 01/14/17 07:11 MCV 74.2 fL (81.0-99.0) L 01/14/17 07:11 MCH 23.5 pg (27.0-31.0) L 01/14/17 07:11 MCHC 31.7 g/dL (33.0-37.0) L 01/14/17 07:11 RDW 17.5 % (11.5-14.5) H 01/14/17 07:11 Plt Count 329 K/uL (130-400) 01/14/17 07:11 MPV 9.5 fL (7.2-11.7) 01/14/17 07:11 Neut % (Auto) 71.6 % (50.0-75.0) 01/14/17 07:11 Lymph % (Auto) 16.0 % (20.0-40.0) L 01/14/17 07:11 [place] % (Auto) 10.4 % (0.0-10.0) H 01/14/17 07:11 Eos % (Auto) 0.9 % (0.0-4.0) 01/14/17 07:11 Baso % (Auto) 1.1 % (0.0-2.0) 01/14/17 07:11 Neut # 7.5 K/uL (1.8-7.0) H 01/14/17 07:11 Lymph # 1.7 K/uL (1.0-4.3) 01/14/17 07:11 [place] # 1.1 K/uL (0.0-0.8) H 01/14/17 07:11 Eos # 0.1 K/uL (0.0-0.7) 01/14/17 07:11 Baso # 0.1 K/uL (0.0-0.2) 01/14/17 07:11 Neutrophils % (Manual) 85 % (50-75) H 01/12/17 08:05 Band Neutrophils % 1 % (0-2) 01/12/17 08:05 Lymphocytes % (Manual) 7 % (20-40) L 01/12/17 08:05 Monocytes % (Manual) 7 % (0-10) 01/12/17 08:05 Eosinophils % (Manual) 1 % (0-4) 01/10/17 18:30 Basophils % (Manual) 2 % (0-2) 01/10/17 18:30 Platelet Estimate Normal (NORMAL) 01/12/17 08:05 Giant Platelets Present 01/10/17 18:30 Polychromasia Slight 01/12/17 08:05 Hypochromasia (manual) Slight 01/12/17 08:05 Poikilocytosis (manual Slight 01/12/17 08:05 Anisocytosis (manual) Slight 01/12/17 08:05 Microcytosis (manual) Slight 01/12/17 08:05 Target Cells Slight 01/11/17 08:10 Ovalocytes Slight 01/12/17 08:05 PT 14.5 SECONDS (9.7-12.2) H 01/11/17 08:10 INR 1.3 01/11/17 08:10 APTT 34 SECONDS (21-34) 01/11/17 08:10 Sodium 141 mmol/L (132-148) 01/14/17 07:11 Potassium 4.5 mmol/L (3.6-5.2) 01/14/17 07:11 Chloride 96 mmol/L (98-107) L 01/14/17 07:11 Carbon Dioxide 35 mmol/L (22-30) H 01/14/17 07:11 Anion Gap 15 (10-20) 01/14/17 07:11 BUN 22 mg/dL (7-17) H 01/14/17 07:11 Creatinine 1.2 MG/DL (0.7-1.2) 01/14/17 07:11 Est GFR ( Amer) 51 01/14/17 07:11 Est GFR (Non-Af Amer) 42 01/14/17 07:11 Random Glucose 94 mg/dL (65-105) 01/14/17 07:11 Calcium 8.5 mg/dl (8.6-10.4) L 01/14/17 07:11 Iron 25 ug/dL (37-170) L 01/14/17 07:11 TIBC 288 ug/dL (250-450) 01/14/17 07:11 % Saturation 9 (20-55) L 01/14/17 07:11 Ferritin 35.5 ng/mL 01/14/17 07:11 Total Bilirubin 0.5 mg/dL (0.2-1.3) 01/14/17 07:11 AST 77 U/L (14-36) H 01/14/17 07:11 ALT 84 U/L (9-52) H 01/14/17 07:11 Alkaline Phosphatase 88 U/L (38-126) 01/14/17 07:11 Troponin I 0.0370 ng/mL (0.00-0.120) 01/10/17 18:30 NT-Pro-B Natriuret Pep 1970 pg/mL (0-900) H 01/10/17 18:30 Total Protein 6.8 g/dL (6.3-8.3) 01/14/17 07:11 Albumin 3.0 g/dL (3.5-5.0) L 01/14/17 07:11 Globulin 3.8 gm/dL (2.2-3.9) 01/14/17 07:11 Albumin/Globulin Ratio 0.8 (1.0-2.1) L 01/14/17 07:11 Urine Color Nuvia (YELLOW) 01/11/17 03:17 Urine Clarity Hazy (Clear) 01/11/17 03:17 Urine pH 5.0 (5.0-8.0) 01/11/17 03:17 Ur Specific [place] 1.017 (1.003-1.030) 01/11/17 03:17 Urine Protein 1+ mg/dL (NEGATIVE) H 01/11/17 03:17 Urine Glucose (UA) Normal mg/dL (Normal) 01/11/17 03:17 Urine Ketones Negative mg/dL (NEGATIVE) 01/11/17 03:17 Urine Blood Negative (NEGATIVE) 01/11/17 03:17 Urine Nitrate Negative (NEGATIVE) 01/11/17 03:17 Urine Bilirubin Negative (NEGATIVE) 01/11/17 03:17 Urine Urobilinogen 2.0 mg/dL (0.2-1.0) H 01/11/17 03:17 Ur Leukocyte Esterase 1+ Ronan/uL (Negative) H 01/11/17 03:17 Urine WBC (Auto) 14 /hpf (0-5) H 01/11/17 03:17 Urine RBC (Auto) 3 /hpf (0-3) 01/11/17 03:17 Ur Squamous Epith Cells 17 /hpf (0-5) H 01/11/17 03:17 Hyaline Casts 3-5 /lpf (0-2) H 01/11/17 03:17 Hepatitis A IgM Ab Negative (NEGATIVE) 01/11/17 08:10 Hep Bs Antigen Negative (NEGATIVE) 01/11/17 08:10 Hep B Core IgM Ab Negative (NEGATIVE) 01/11/17 08:10 Hepatitis C Antibody Negative (NEGATIVE) 01/11/17 08:10 Influenza Typ A,B (EIA) Negative for flu a/b (NEGATIVE) 01/11/17 07:27 Ur L.pneumophila Ag Negative (NEGATIVE) 01/11/17 Unknown - Hospital Course Hospital Course: On admission: "This is an 86 y/o female with a PMH including HTN, CHF, Afib, iron deficiency anemia, HLD and gastritis who presents to the ED with a CC of Cough for 3 days duration. It is a productive cough with yellow/white sputum. It is associated with a fever, nasal congestion. She denies N/V, diarrhea, SOB, dizziness, GERMAN, CP , abdominal pain or blood in the urine. She denies neck pain. She has poor vision in her L.eye. Denies myalgias. No DM. Her daughter was sick with a cough and a fever last week that was treated with antibiotics and resolved. She denies recent travel." Hospital Course: Patient admitted for community acquired pneumonia. 01/10/17 CXR: Diffuse increased interstitial lung markings suggestive for edema and or infiltrate. Patchy bibasilar airspace opacities with small left pleural effusion. Mammilated right hemidiaphragm. Right hilar prominence. 01/11/17 CT chest without contrast: Small left pleural effusion. Prominent consolidative changes with air bronchograms seen within the superior segment of the left lower lobe with adjacent compressive atelectasis. Post treatment followup is recommended to exclude underlying lesion. More inferiorly in the left lower lobe there is adjacent atelectasis at the level of the effusion. Scattered emphysematous changes. While in the hospital, patient treated with Rocephin 1gm IV qD and Zithromax 500 mg IV qD. Elevated LFTs were discovered upon admission. Abdominal ultrasound (01/10) reveals evidence of fatty infiltration of liver parenchyma vs hepatic parenchymal disease. Hepatitis panel negative. Incidental finding on Chest CT: Ascending aortic aneurysm measuring 4.7cm. Vascular surgery Dr. Rahman consulted who recommended monitoring with follow up CT in 6 months. Patient stable for discharge. Discharged on following medications: Eliquis 5 mg, 1 tablet by mouth twice a day, Disp #60, NO refills Ciprofloxacin 500 mg, 1 tablet by mouth twice a day, Disp #12, NO refills Ferrous Sulfate 325 mg, 1 tablet by mouth 1x/day, Disp #30, NO refills Furosemide 40 mg, 1 tablet by mouth 1x/day with breakfast, Disp #30, NO refills Losartan 50 mg, 1 tablet by mouth 1x/day with dinner, Disp #30, NO refills Metoprolol Succinate 25 mg, 1 tablet by mouth 1x/day with lunch, Disp 330, NO refills This is a summary of the hospital course. Please refer to medical records for more information. - Date & Time of H&P Date of H&P: 01/14/17 Time of H&P: 17:00 Discharge Exam - Head Exam Head Exam: ATRAUMATIC, NORMAL INSPECTION, NORMOCEPHALIC - Eye Exam Eye Exam: EOMI, PERRL (except for left eye) - ENT Exam ENT Exam: Mucous Membranes Moist - Respiratory Exam Respiratory Exam: Wheezes, NORMAL BREATHING PATTERN - Cardiovascular Exam Cardiovascular Exam: REGULAR RHYTHM, +S1, +S2 - GI/Abdominal Exam GI & Abdominal Exam: Normal Bowel Sounds, Soft. absent: Tenderness - Extremities Exam Extremities exam: pedal pulses present Additional comments: varicose veins b/l - Neurological Exam Neurological exam: Alert, CN II-XII Intact, Oriented x3 - Skin Skin Exam: Dry, Intact, Normal Color, Warm Discharge Plan - Follow Up Plan Condition: STABLE Disposition: HOME/ ROUTINE Instructions: Heart Failure (DC), Heart Failure (GEN), Pacemaker (DC), Pacemaker (GEN), Pulmonary Edema (DC), Pulmonary Edema (GEN), Ascites (DC), Ascites (GEN), Hypertension (DC), Hypertension (GEN), Pneumonia (DC) Additional Instructions: 1). Schedule follow up with the [facility] Level [facility] to take place in the next 7 to 10 days. Phone number is [phone]. 2). You were provided with the following prescriptions by the medical records administrator: Eliquis 5 mg, 1 tablet by mouth twice a day, Disp #60, NO refills Ciprofloxacin 500 mg, 1 tablet by mouth twice a day, Disp #12, NO refills Ferrous Sulfate 325 mg, 1 tablet by mouth 1x/day, Disp #30, NO refills Furosemide 40 mg, 1 tablet by mouth 1x/day with breakfast, Disp #30, NO refills Losartan 50 mg, 1 tablet by mouth 1x/day with dinner, Disp #30, NO refills Metoprolol Succinate 25 mg, 1 tablet by mouth 1x/day with lunch, Disp 30, NO refills 3). You will need to have a repeat CT Chest in 6 months to make sure that your Aortic Aneurysm does not increase in size. This can be arranged through the [facility]. 4). You will need to have an Ultrasound of your Thyroid for further evaluation of a nodule on your left side. This can be arranged through the [facility] upon your follow up with them in 7 to 10 days. 5). You will need to have repeat blood work through the [facility] and if your Liver Enzymes are ok, then consideration can be made to restart your Crestor. 6). You will need to have follow up with a Sternman through the [facility] for your history of Atrial Fibrillation, Diastolic Heart Failure , and Aortic Aneurysm. 7). You will need to have repeat Chest X Ray in 2 months to make sure that your pneumonia has resolved. This can be arranged through the [facility]. Referrals: Jody Summers MD [Staff Provider] - <Leonardo Tucker - Last Filed: 01/14/17 21:38> Provider - Provider Date of Admission: 01/10/17 19:10 Attending physician: Sanford Griggs MD [facility] Course - Lab Results Lab Results: Most Recent Lab Values WBC 10.5 K/uL (4.8-10.8) 01/14/17 07:11 RBC 4.86 Mil/uL (3.80-5.20) 01/14/17 07:11 Hgb 11.4 g/dL (11.0-16.0) 01/14/17 07:11 Hct 36.0 % (34.0-47.0) 01/14/17 07:11 MCV 74.2 fL (81.0-99.0) L 01/14/17 07:11 MCH 23.5 pg (27.0-31.0) L 01/14/17 07:11 MCHC 31.7 g/dL (33.0-37.0) L 01/14/17 07:11 RDW 17.5 % (11.5-14.5) H 01/14/17 07:11 Plt Count 329 K/uL (130-400) 01/14/17 07:11 MPV 9.5 fL (7.2-11.7) 01/14/17 07:11 Neut % (Auto) 71.6 % (50.0-75.0) 01/14/17 07:11 Lymph % (Auto) 16.0 % (20.0-40.0) L 01/14/17 07:11 [place] % (Auto) 10.4 % (0.0-10.0) H 01/14/17 07:11 Eos % (Auto) 0.9 % (0.0-4.0) 01/14/17 07:11 Baso % (Auto) 1.1 % (0.0-2.0) 01/14/17 07:11 Neut # 7.5 K/uL (1.8-7.0) H 01/14/17 07:11 Lymph # 1.7 K/uL (1.0-4.3) 01/14/17 07:11 [place] # 1.1 K/uL (0.0-0.8) H 01/14/17 07:11 Eos # 0.1 K/uL (0.0-0.7) 01/14/17 07:11 Baso # 0.1 K/uL (0.0-0.2) 01/14/17 07:11 Neutrophils % (Manual) 85 % (50-75) H 01/12/17 08:05 Band Neutrophils % 1 % (0-2) 01/12/17 08:05 Lymphocytes % (Manual) 7 % (20-40) L 01/12/17 08:05 Monocytes % (Manual) 7 % (0-10) 01/12/17 08:05 Eosinophils % (Manual) 1 % (0-4) 01/10/17 18:30 Basophils % (Manual) 2 % (0-2) 01/10/17 18:30 Platelet Estimate Normal (NORMAL) 01/12/17 08:05 Giant Platelets Present 01/10/17 18:30 Polychromasia Slight 01/12/17 08:05 Hypochromasia (manual) Slight 01/12/17 08:05 Poikilocytosis (manual Slight 01/12/17 08:05 Anisocytosis (manual) Slight 01/12/17 08:05 Microcytosis (manual) Slight 01/12/17 08:05 Target Cells Slight 01/11/17 08:10 Ovalocytes Slight 01/12/17 08:05 PT 14.5 SECONDS (9.7-12.2) H 01/11/17 08:10 INR 1.3 01/11/17 08:10 APTT 34 SECONDS (21-34) 01/11/17 08:10 Sodium 141 mmol/L (132-148) 01/14/17 07:11 Potassium 4.5 mmol/L (3.6-5.2) 01/14/17 07:11 Chloride 96 mmol/L (98-107) L 01/14/17 07:11 Carbon Dioxide 35 mmol/L (22-30) H 01/14/17 07:11 Anion Gap 15 (10-20) 01/14/17 07:11 BUN 22 mg/dL (7-17) H 01/14/17 07:11 Creatinine 1.2 MG/DL (0.7-1.2) 01/14/17 07:11 Est GFR ( Amer) 51 01/14/17 07:11 Est GFR (Non-Af Amer) 42 01/14/17 07:11 Random Glucose 94 mg/dL (65-105) 01/14/17 07:11 Calcium 8.5 mg/dl (8.6-10.4) L 01/14/17 07:11 Iron 25 ug/dL (37-170) L 01/14/17 07:11 TIBC 288 ug/dL (250-450) 01/14/17 07:11 % Saturation 9 (20-55) L 01/14/17 07:11 Ferritin 35.5 ng/mL 01/14/17 07:11 Total Bilirubin 0.5 mg/dL (0.2-1.3) 01/14/17 07:11 AST 77 U/L (14-36) H 01/14/17 07:11 ALT 84 U/L (9-52) H 01/14/17 07:11 Alkaline Phosphatase 88 U/L (38-126) 01/14/17 07:11 Troponin I 0.0370 ng/mL (0.00-0.120) 01/10/17 18:30 NT-Pro-B Natriuret Pep 1970 pg/mL (0-900) H 01/10/17 18:30 Total Protein 6.8 g/dL (6.3-8.3) 01/14/17 07:11 Albumin 3.0 g/dL (3.5-5.0) L 01/14/17 07:11 Globulin 3.8 gm/dL (2.2-3.9) 01/14/17 07:11 Albumin/Globulin Ratio 0.8 (1.0-2.1) L 01/14/17 07:11 Urine Color Nuvia (YELLOW) 01/11/17 03:17 Urine Clarity Hazy (Clear) 01/11/17 03:17 Urine pH 5.0 (5.0-8.0) 01/11/17 03:17 Ur Specific [place] 1.017 (1.003-1.030) 01/11/17 03:17 Urine Protein 1+ mg/dL (NEGATIVE) H 01/11/17 03:17 Urine Glucose (UA) Normal mg/dL (Normal) 01/11/17 03:17 Urine Ketones Negative mg/dL (NEGATIVE) 01/11/17 03:17 Urine Blood Negative (NEGATIVE) 01/11/17 03:17 Urine Nitrate Negative (NEGATIVE) 01/11/17 03:17 Urine Bilirubin Negative (NEGATIVE) 01/11/17 03:17 Urine Urobilinogen 2.0 mg/dL (0.2-1.0) H 01/11/17 03:17 Ur Leukocyte Esterase 1+ Ronan/uL (Negative) H 01/11/17 03:17 Urine WBC (Auto) 14 /hpf (0-5) H 01/11/17 03:17 Urine RBC (Auto) 3 /hpf (0-3) 01/11/17 03:17 Ur Squamous Epith Cells 17 /hpf (0-5) H 01/11/17 03:17 Hyaline Casts 3-5 /lpf (0-2) H 01/11/17 03:17 Hepatitis A IgM Ab Negative (NEGATIVE) 01/11/17 08:10 Hep Bs Antigen Negative (NEGATIVE) 01/11/17 08:10 Hep B Core IgM Ab Negative (NEGATIVE) 01/11/17 08:10 Hepatitis C Antibody Negative (NEGATIVE) 01/11/17 08:10 Influenza Typ A,B (EIA) Negative for flu a/b (NEGATIVE) 01/11/17 07:27 Ur L.pneumophila Ag Negative (NEGATIVE) 01/11/17 Unknown Attending/Attestation - Attestation I have personally seen and examined this patient.: Yes I have fully participated in the care of the patient.: Yes I have reviewed all pertinent clinical information, including history, physical exam and plan: Yes Notes (Text): 01/14/17 21:38 Please also see my addendum to resident note 01/14/17. Discharge plan was thoroughly gone over with the resident. Leonardo Tucker D.O.
--- NOTE | 2017-01-18 08:05 | CARD ---
APPROVED REPORT EXAM: Two-dimensional and M-mode echocardiogram with Doppler and color Doppler. Other Information Quality : GoodRhythm : NSR INDICATION Atrial Fibrillation Chest Pain Congestive Heart Failure PNEUMONIA RISK FACTORS Hypertension Hyperlipidemia M-Mode DIMENSIONS RVDd2.15 (2.1-3.2cm)Left Atrium (MM)4.82 (2.5-4.0cm) IVSd0.87 (0.7-1.1cm)Aortic Root2.67 (2.2-3.7cm) LVDd5.10 (4.0-5.6cm)Aortic Cusp Exc.1.67 (1.5-2.0cm) PWd0.83 (0.7-1.1cm)FS (%) 30 % LVDs3.57 (2.0-3.8cm)LVEF (%)57 (>50%) Aortic Valve AI P 1/2 [id number] Mitral Valve MV E Ahjvhdhg092.3cm/sE/A ratio0.0 TDI E/Lateral E'0.0E/Medial E'0.0 Tricuspid Valve TR Peak [id number]/sTR Peak [id number] LEFT VENTRICLE The left ventricle is normal size. There is normal left ventricular wall thickness. The left ventricular function is normal. The left ventricular ejection fraction is within the normal range. The Ejection Fraction is >55%. No regional wall motion abnormalities noted. The left ventricular diastolic function is normal. No left ventricle thrombus noted on this study. There is no ventricular septal defect visualized. There is no left ventricular aneurysm. There is no mass noted in the left ventricle. RIGHT VENTRICLE The right ventricle is normal size. There is normal right ventricular wall thickness. The right ventricular systolic function is normal. ATRIA The left atrium is moderately dilated. The right atrium size is normal. The interatrial septum is intact with no evidence for an atrial septal defect. AORTIC VALVE The aortic valve is normal in structure and function. There is mild to moderate aortic regurgitation. There is no aortic valvular stenosis. There is no aortic valvular vegetation. MITRAL VALVE The mitral valve is normal in structure and function. There is no evidence of mitral valve prolapse. There is no mitral valve stenosis. Mitral regurgitation is mild. TRICUSPID VALVE The tricuspid valve is normal in structure and function. There is mild to moderate tricuspid regurgitation. Right ventricular systolic pressure is estimated at 50-60 mmHg. There is moderate pulmonary hypertension. There is no tricuspid valve prolapse or vegetation. There is no tricuspid valve stenosis. PULMONIC VALVE The pulmonary valve is normal in structure and function. There is no pulmonic valvular regurgitation. There is no pulmonic valvular stenosis. GREAT VESSELS The aortic root is normal in size. The ascending aorta is normal in size. The pulmonary artery is normal. The IVC is normal in size and collapses >50% with inspiration. PERICARDIAL EFFUSION The pericardium appears normal. There is no pleural effusion. <Conclusion> The left ventricle is normal size. The left ventricular function is normal. There is normal left ventricular wall thickness. The left ventricular ejection fraction is within the normal range. The Ejection Fraction is >55%. There is mild to moderate aortic regurgitation. Right ventricular systolic pressure is estimated at 50-60 mmHg. There is mild to moderate tricuspid regurgitation. There is moderate pulmonary hypertension.
== END 2017-01-14 17:45 | disposition home or self-care (01) | DRG 541 ==
LOC: C.ER 17:42 → C.9E 19:10 → C.3T 19:59
PROVIDERS: ADMIT Internal Medicine; ATTEND Internal Medicine
DX: J18.9 Pneumonia, unspecified organism (principal); I50.32 Chronic diastolic (congestive) heart failure; I11.0 Hypertensive heart disease with heart failure; I27.2 Other secondary pulmonary hypertension; J98.11 Atelectasis; I71.2 Thoracic aortic aneurysm, without rupture; D50.9 Iron deficiency anemia, unspecified; E78.00 Pure hypercholesterolemia, unspecified; E78.5 Hyperlipidemia, unspecified; H54.42 Blindness, left eye, normal vision right eye; I25.10 Atherosclerotic heart disease of native coronary artery without angina pectoris; I48.91 Unspecified atrial fibrillation; Z79.01 Long term (current) use of anticoagulants; Z87.01 Personal history of pneumonia (recurrent); Z95.0 Presence of cardiac pacemaker

== ENCOUNTER 2017-08-09 20:06 | Inpatient (IN) | payer OTHER ==
[2017-08-09 20:06] VITALS: BMI 39.2
--- NOTE | 2017-08-09 20:57 | C.PDOC ---
History Of Present Illness patient whose past medical history include HTN, CHF, and CAD, who presents to the ED complaining of right calf pain since one day ago. Patient reports taking 200 mg of Motrin with no significant relief. She notes the pain being sharp and cramping. Patient denies chest pain, shortness of breath, abdominal pain, nausea , or other complaints. Time Seen by Provider: 08/09/17 20:57 Chief Complaint (Nursing): Lower Extremity Problem/Injury History Per: Patient History/Exam Limitations: no limitations Onset/Duration Of Symptoms: Days Current Symptoms Are (Timing): Still Present Severity: Moderate Pain Scale Rating Of: 4 Recent travel outside of the [place]: No Additional History Per: Family Past Medical History Reviewed: Historical Data, Nursing Documentation, Vital Signs Vital Signs: Last Vital Signs Temp 98.7 F 08/09/17 23:16 Pulse 80 08/09/17 23:16 Resp 17 08/09/17 23:16 BP 136/74 08/09/17 23:16 Pulse Ox 99 08/09/17 23:29 - Medical History PMH: Atrial Fibrillation, CAD, CHF, HTN, Hypercholesterolemia, Pneumonia Denies: Chronic Kidney Disease Family History: States: No Known Family Hx - Social History Hx Tobacco Use: No Hx Alcohol Use: Yes (beer) Hx Substance Use: No - Immunization History Hx Tetanus Toxoid Vaccination: No Hx Influenza Vaccination: No Hx Pneumococcal Vaccination: No Review Of Systems Constitutional: Negative for: Fever Cardiovascular: Negative for: Chest Pain, Palpitations Respiratory: Negative for: Shortness of Breath Gastrointestinal: Negative for: Vomiting, Abdominal Pain Genitourinary: Negative for: Dysuria Musculoskeletal: Positive for: Leg Pain (right calf pain). Negative for: Neck Pain Neurological: Negative for: Weakness Physical Exam - Physical Exam Appears: Non-toxic, No Acute Distress Skin: Warm, Dry Head: Normacephalic Eye(s): bilateral: Normal Inspection Oral Mucosa: Moist Neck: Supple Chest: No Tenderness, Subcutaneous Emphysema (pacer left chest) Cardiovascular: Rhythm Regular, No Murmur Respiratory: No Rales, No Rhonchi, No Wheezing Gastrointestinal/Abdominal: Bowel Sounds (active), Soft, No Tenderness, No Guarding, No Rebound Back: No CVA Tenderness Extremity: Normal ROM, Pedal Edema (trace), Calf Tenderness (right calf ) Extremity: Bilateral: Atraumatic, Normal Color And Temperature, Normal ROM Pulses: Left Dorsalis Pedis: Normal, Right Dorsalis Pedis: Normal Neurological/Psych: Oriented x3, Normal Speech Gait: With Assistance ED Course And Treatment - Laboratory Results Result Diagrams: 08/09/17 22:15 08/09/17 22:15 ECG: Interpreted By Me, Viewed By Me O2 Sat by Pulse Oximetry: 99 (room air) Pulse Ox Interpretation: Normal - Radiology CXR: Interpreted by Me, Viewed By Me CXR Interpretation: Yes: Cardiomegaly, Other (vascular congestion, pacer). No: Infiltrates, Fracture Disposition Discussed With Dr.: Rachid Bedoya Comment: accepted the pt on his service and took over the care at 11:27 PM Doctor Will See Patient In The: ED Counseled Patient/Family Regarding: Studies Performed, Diagnosis - Disposition Disposition: HOSPITALIZED Disposition Time: 20:57 Condition: GUARDED - POA Present On Arrival: Poor Glycemic Control - Clinical Impression Clinical Impression: Leg pain, right, Elevated d-dimer, CHF (congestive heart failure), Pulmonary emboli - Scribe Statement The provider has reviewed the documentation as recorded by the Scribe Scribe Attestation: Dolly Galdamez MD Scribe Attestation: All medical record entries made by the Scribe were at my direction and personally dictated by me. I have reviewed the chart and agree that the record accurately reflects my personal performance of the history, physical exam, medical decision making, and the department course for this patient. I have also personally directed, reviewed, and agree with the discharge instructions and disposition. Decision To Admit - Pt Status Changed To: Hospital Disposition Of: Inpatient - Admit Certification Admit to Inpatient:: After my assessment, the patient will require hospitalization for at least two midnights. This is because of the severity of symptoms shown, intensity of services needed, and/or the medical risk in this patient being treated as an outpatient. - InPatient: Physician Admission Certification: I certify that this patient requires 2 or more midnights of care for the following reason:: After my assessment, the patient will require hospitalization for at least two midnights. This is because of the severity of symptoms shown, intensity of services needed, and/or the medical risk in this patient being treated as an outpatient. - . Bed Request Type: Telemetry Admitting Physician: Rachid Bedoya Patient Diagnosis: Leg pain, right, Elevated d-dimer, CHF (congestive heart failure)
[2017-08-09] MEDS ORDERED: Morphine 4 MG/ML VIAL IV ONE (21:58)
[2017-08-09] MEDS ORDERED: Morphine 4 MG/ML VIAL ONE ×2 (22:06→23:52)
[2017-08-09] MEDS ORDERED: Sodium Chloride 0.9% 1,000 ML ONE (22:06)
[2017-08-09] MEDS: Sodium Chloride 0.9% 1,000 ML IV SCH (22:17)
[2017-08-09 22:19] LABS: BASO # 0.1 K/uL (0.0-0.2); BASO % 0.5 % (0.0-2.0); EOS % 0.2 % (0.0-4.0); HEMOGLOBIN 12.8 g/dL (11.0-16.0); LYMPH # 0.8 K/uL (1.0-4.3); LYMPH % 6.5 % (20.0-40.0); MEAN CELL VOLUME 73.8 fL (81.0-99.0); MEAN CORPUSCULAR HEMOGLOBIN 24.1 pg (27.0-31.0); MEAN CORPUSCULAR HGB CONC 32.7 g/dL (33.0-37.0); MEAN PLATELET VOLUME 8.9 fL (7.2-11.7); MONO # 0.8 K/uL (0.0-0.8); MONO % 6.4 % (0.0-10.0); NEUT # 11.1 K/uL (1.8-7.0); NEUT % 86.4 % (50.0-75.0); PLATELET COUNT 319 K/uL (130-400); RBC 5.31 Mil/uL (3.80-5.20); RED CELL DISTRIBUTION WIDTH 17.5 % (11.5-14.5); WHITE BLOOD COUNT 12.9 K/uL (4.8-10.8)
[2017-08-09 22:30] LABS: ALB/GLOB RATIO 0.8 (1.0-2.1); ALBUMIN 3.8 g/dL (3.5-5.0); CALCIUM 9.5 mg/dl (8.6-10.4)
[2017-08-09 22:55] LABS: ANISOCYTOSIS SLIGHT; HYPOCHROMIC SLIGHT; LARGE PLATELETS PRESENT; LYMPHOCYTE 3 % (20-40); MICROCYTOSIS SLIGHT; MONOCYTE 5 % (0-10); NEUTROPHIL 92 % (50-75); OVALOCYTES SLIGHT; PLATELET ESTIMATE NORMAL (NORMAL); POIKILOCYTOSIS SLIGHT; TOTAL CELLS COUNTED 100
[2017-08-09 23:10] LABS: INR 1.1; PROTHROMBIN TIME 12.7 SECONDS (9.7-12.2)
[2017-08-09] MEDS ORDERED: Enoxaparin 40 mg Syringe SC STA (23:21)
[2017-08-09] MEDS ORDERED: Enoxaparin 100 mg Syringe ONE (23:52)
[2017-08-10] MEDS ORDERED: Iodixanol 320 mg/ml 150 ml Bottle IV ONE (00:04)
--- NOTE | 2017-08-10 01:23 | CT ---
EXAM: CT Angiography Chest With Intravenous Contrast CLINICAL HISTORY: 87 years old, female; Pain; Chest pain; Type not specified; Additional info: High d-dimer TECHNIQUE: Axial computed tomographic angiography images of the chest with intravenous contrast using pulmonary embolism protocol. All CT scans at this facility use one or more dose reduction techniques, viz.: automated exposure control; ma/kV adjustment per patient size (including targeted exams where dose is matched to indication; i.e. head); or iterative reconstruction technique. MIP reconstructed images were created and reviewed. Coronal and sagittal reformatted images were created and reviewed. CONTRAST: 100 mL of [id number] administered intravenously. COMPARISON: No relevant prior studies available. FINDINGS: Limitations: Streak artifact - mild. Pulmonary arteries: Enlarged pulmonary trunk, 4.8 cm. Enlarged right pulmonary artery, 3.0 cm. Filling defect within subsegmental branch of right pulmonary artery. No saddle embolus. Aorta: Ectasia of ascending thoracic aorta, 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 in diameter. Moderate atherosclerotic disease. Lungs: Minimal atelectasis/scarring. No consolidation. Pleural space: No significant effusion. No pneumothorax. Heart: Mild cardiomegaly. No significant pericardial effusion. Mild coronary artery calcifications. Mediastinum: Small hiatal hernia. Thyroid: Mild enlargement and heterogeneity of left lobe. Bones/joints: Degenerative changes of spine. No acute fracture. Soft tissues: Unremarkable. Lymph nodes: No pathologically enlarged lymph nodes. Adrenals: Mild hypertrophy of adrenal glands. Stomach and bowel: Duodenal diverticulum. Colonic diverticula. Tubes, lines and devices: LEFT pacemaker. IMPRESSION: 1. Pulmonary emboli. 2. Pulmonary hypertension. 3. Heterogeneous thyroid. Followup as clinically warranted. 4. Incidental/non-acute findings are described above.
[2017-08-10 02:16] LABS: SQUAMOUS EPITHIAL 1 /hpf (0-5); URINE BILIRUBIN NEGATIVE (NEGATIVE); URINE CLARITY Clear (Clear); URINE COLOR Yellow (YELLOW); URINE GLUCOSE (UA) NORMAL (Normal); URINE LEUKOCYTE ESTERASE NEG Leu/uL (Negative); URINE PROTEIN 1+ mg/dL (NEGATIVE); URINE UROBILINOGEN NORMAL mg/dL (0.2-1.0)
[2017-08-10 02:17] LABS: URINE BLOOD NEGATIVE (NEGATIVE)
--- NOTE | 2017-08-10 02:18 | CP.PCM.HP ---
<FordCruzArlyn - Last Filed: 08/10/17 02:10> History of Present Illness - History of Present Illness History of Present Illness: CC: right calf pain HPI: Patient is an 87 year old Moldovan speaking female with a PMH of CAD, CHF, pacemaker, HTN, iron deficiency anemia, HLD, gastritis, aortic aneurysm, and thyroid nodule who presents to the ED complaining of right calf pain of 1 day duration. Patient describes it as sharp/crampy and 10/10. Patient tried 200 mg Motrin without relief. Patient denies having similar symptoms in the past. She says the pain has not changed in quality or quantity since it started. Of note, Patient's family member at bedside says the patient does not walk much at home and lives a very sedintary lifestyle, only walking when necessary. Patient admits to dry cough and chronic constipation but otherwise denies fever, chills , headache, dizziness, changes in vision/hearing, chest pain, SOB, palpitations , abdominal pain, nausea, vomiting, diarrhea, blood in stool, changes in urinary habits, and recent travel. PMH: CAD, CHF, pacemaker, HTN, iron deficiency anemia, HLD, gastritis, aortic aneurysm, and thyroid nodule Meds: Eliquis 5 mg BID, Ferrous sulfate 325 mg daily, and losartan 50 mg daily; patient stopped taking her lasix, toprol XL, and simvastatin because she did not like them Allergies: NKDA PSH: Pacemaker FH: denies SH: occasional alcohol drinker, denies tobacco and elicit drug use Present on Admission - Present on Admission Any Indicators Present on Admission: No Review of Systems - Review of Systems All systems: reviewed and no additional remarkable complaints except (as per HPI ) Past Patient History - Infectious Disease Hx of Infectious Diseases: None - Past Medical History & Family History Past Medical History?: Yes - Past Social History Smoking Status: Never Smoked - CARDIAC Hx Atrial Fibrillation: Yes Hx Congestive Heart Failure: Yes Hx Hypercholesterolemia: Yes Hx Hypertension: Yes - PULMONARY Hx Pneumonia: Yes - NEUROLOGICAL Hx Neurological Disorder: No - HEENT Hx HEENT Problems: Yes Hx Blind: Yes (left eye) Hx Cataracts: Yes (left eye) - RENAL Hx Chronic Kidney Disease: No - ENDOCRINE/METABOLIC Hx Endocrine Disorders: No - HEMATOLOGICAL/ONCOLOGICAL Hx Blood Disorders: No - INTEGUMENTARY Hx Dermatological Problems: No - MUSCULOSKELETAL/RHEUMATOLOGICAL Hx Musculoskeletal Disorders: No Hx Falls: No - GASTROINTESTINAL Hx Gastrointestinal Disorders: No - GENITOURINARY/GYNECOLOGICAL Hx Genitourinary Disorders: No - PSYCHIATRIC Hx Substance Use: No - SURGICAL HISTORY Hx Surgeries: Yes Other/Comment: PACEMAKER PER PATIENT [address] Moeller - ANESTHESIA Hx Anesthesia: Yes Hx Anesthesia Reactions: No Hx Malignant Hyperthermia: No Meds Allergies/Adverse Reactions: Allergies Allergy/AdvReac Type Severity Reaction Status Date / Time No Known Allergies Allergy Verified 08/09/17 20:24 Physical Exam - Constitutional Appears: Non-toxic, No Acute Distress - Head Exam Head Exam: ATRAUMATIC, NORMAL INSPECTION, NORMOCEPHALIC - Eye Exam Eye Exam: EOMI, Normal appearance, PERRL - ENT Exam ENT Exam: Mucous Membranes Moist - Neck Exam Neck exam: Positive for: Normal Inspection - Respiratory Exam Respiratory Exam: Clear to Auscultation Bilateral, NORMAL BREATHING PATTERN. absent: Accessory Muscle Use, Rales, Rhonchi, Wheezes, Respiratory Distress - Cardiovascular Exam Cardiovascular Exam: RRR, +S1, +S2. absent: Bradycardia, Tachycardia, Diastolic murmur, Gallop, Rubs, Systolic Murmur - GI/Abdominal Exam GI & Abdominal Exam: Normal Bowel Sounds, Soft. absent: Distended, Tenderness - Extremities Exam Extremities exam: Positive for: calf tenderness (right, +Homans), pedal edema ( bilateral) - Neurological Exam Neurological exam: Alert, Oriented x3 - Psychiatric Exam Psychiatric exam: Normal Affect, Normal Mood - Skin Skin Exam: Dry, Intact, Normal Color, Warm Results - Vital Signs Recent Vital Signs: Last Vital Signs Temp 98.7 F 08/09/17 23:16 Pulse 80 08/09/17 23:16 Resp 17 08/09/17 23:16 BP 136/74 08/09/17 23:16 Pulse Ox 99 08/10/17 01:26 - Labs Result Diagrams: 08/09/17 22:15 08/09/17 22:15 Labs: Laboratory Results - last 24 hr 08/09/17 08/09/17 08/09/17 22:15 22:15 22:55 WBC 12.9 H RBC 5.31 H Hgb 12.8 Hct 39.2 MCV 73.8 L MCH 24.1 L MCHC 32.7 L RDW 17.5 H Plt Count 319 MPV 8.9 Neut % (Auto) 86.4 H Lymph % (Auto) 6.5 L Josephine % (Auto) 6.4 Eos % (Auto) 0.2 Baso % (Auto) 0.5 Neut # (Auto) 11.1 H Lymph # (Auto) 0.8 L Josephine # (Auto) 0.8 Eos # (Auto) 0.0 Baso # (Auto) 0.1 Neutrophils % (Manual) 92 H Lymphocytes % (Manual) 3 L Monocytes % (Manual) 5 Platelet Estimate Normal Large Platelets Present Hypochromasia (manual) Slight Poikilocytosis (manual Slight Anisocytosis (manual) Slight Microcytosis (manual) Slight Ovalocytes Slight PT 12.7 H INR 1.1 APTT 31 D-Dimer, Quantitative 4493 H Sodium 140 Potassium 4.4 Chloride 102 Carbon Dioxide 27 Anion Gap 15 BUN 17 Creatinine 1.2 Est GFR ( Amer) 51 Est GFR (Non-Af Amer) 42 Random Glucose 113 H Calcium 9.5 Magnesium 1.9 Total Bilirubin 0.8 AST 51 H ALT 24 Alkaline Phosphatase 81 NT-Pro-B Natriuret Pep Total Protein 8.5 H Albumin 3.8 Globulin 4.7 H Albumin/Globulin Ratio 0.8 L 08/09/18 23:02 WBC RBC Hgb Hct MCV MCH MCHC RDW Plt Count MPV Neut % (Auto) Lymph % (Auto) Josephine % (Auto) Eos % (Auto) Baso % (Auto) Neut # (Auto) Lymph # (Auto) Josephine # (Auto) Eos # (Auto) Baso # (Auto) Neutrophils % (Manual) Lymphocytes % (Manual) Monocytes % (Manual) Platelet Estimate Large Platelets Hypochromasia (manual) Poikilocytosis (manual Anisocytosis (manual) Microcytosis (manual) Ovalocytes PT INR APTT D-Dimer, Quantitative Sodium Potassium Chloride Carbon Dioxide Anion Gap BUN Creatinine Est GFR ( Amer) Est GFR (Non-Af Amer) Random Glucose Calcium Magnesium Total Bilirubin AST ALT Alkaline Phosphatase NT-Pro-B Natriuret Pep 2300 H Total Protein Albumin Globulin Albumin/Globulin Ratio Assessment & Plan (1) Pulmonary emboli Assessment and Plan: * Right calf pain and elevated D-dimer * No tachycardia Imaging * CTA: Pulmonary emboli, pulmonary hypertension, heterogeneous thyroid, and ectasia of ascending thoracic aorta, 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 in diameter (see full report) * EKG: ventricular paced rhythm * CXR pending Meds * Lovenox 90 mg SC BID Status: Acute (2) Right calf pain Assessment and Plan: * D-dimer 4493 * f/u LE US * Contraindication for SCDs Meds: * Lovenox 90 mg SC BID Status: Acute (3) CHF (congestive heart failure) Assessment and Plan: * f/u echo * f/u CXR * Continue home meds * Lasix 40 mg daily * Losartan 50 mg daily * Toprol XL 25 mg daily * Hold crestor due to transaminitis Status: Chronic (4) A-fib Assessment and Plan: * continue home Eliquis 5 mg PO BID * Has Pacemaker Status: Chronic (5) Hyperlipidemia Assessment and Plan: * f/u lipid panel * hold statin due to transaminitis Status: Chronic (6) Hypertension Assessment and Plan: * Continue home meds * Losartan 50 mg daily * Toprol XL 25 mg daily Status: Chronic (7) Iron deficiency anemia Assessment and Plan: * H&H stable at this time * Continue home ferrous sulfate 325 mg daily Status: Chronic (8) Ascending aortic aneurysm Assessment and Plan: * seen on prior admission * CTA 08/09/17: Pulmonary emboli, pulmonary hypertension, heterogeneous thyroid, and ectasia of ascending thoracic aorta, 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 in diameter (see full report) * Monitor Status: Chronic (9) Prophylactic measure Assessment and Plan: * GI: pepcid * DVT: lovenox 90 mg SC BID Status: Acute <Rachid Bedoya - Last Filed: 08/10/17 06:30> Results - Vital Signs Recent Vital Signs: Last Vital Signs Temp 98.1 F 08/10/17 05:56 Pulse 80 08/10/17 05:56 Resp 16 08/10/17 05:56 BP 132/60 08/10/17 05:56 Pulse Ox 100 08/10/17 05:56 - Labs Result Diagrams: 08/10/17 04:59 08/10/17 04:59 Labs: Laboratory Results - last 24 hr 08/09/17 08/09/17 08/09/17 22:15 22:15 22:55 WBC 12.9 H RBC 5.31 H Hgb 12.8 Hct 39.2 MCV 73.8 L MCH 24.1 L MCHC 32.7 L RDW 17.5 H Plt Count 319 MPV 8.9 Neut % (Auto) 86.4 H Lymph % (Auto) 6.5 L Josephine % (Auto) 6.4 Eos % (Auto) 0.2 Baso % (Auto) 0.5 Neut # (Auto) 11.1 H Lymph # (Auto) 0.8 L Josephine # (Auto) 0.8 Eos # (Auto) 0.0 Baso # (Auto) 0.1 Neutrophils % (Manual) 92 H Lymphocytes % (Manual) 3 L Monocytes % (Manual) 5 Platelet Estimate Normal Large Platelets Present Hypochromasia (manual) Slight Poikilocytosis (manual Slight Anisocytosis (manual) Slight Microcytosis (manual) Slight Ovalocytes Slight PT 12.7 H INR 1.1 APTT 31 D-Dimer, Quantitative 4493 H Sodium 140 Potassium 4.4 Chloride 102 Carbon Dioxide 27 Anion Gap 15 BUN 17 Creatinine 1.2 Est GFR ( Amer) 51 Est GFR (Non-Af Amer) 42 Random Glucose 113 H Calcium 9.5 Magnesium 1.9 Total Bilirubin 0.8 AST 51 H ALT 24 Alkaline Phosphatase 81 NT-Pro-B Natriuret Pep Total Protein 8.5 H Albumin 3.8 Globulin 4.7 H Albumin/Globulin Ratio 0.8 L Triglycerides Cholesterol LDL Cholesterol Direct HDL Cholesterol Urine Color Urine Clarity Urine pH Ur Specific [place] Urine Protein Urine Glucose (UA) Urine Ketones Urine Blood Urine Nitrate Urine Bilirubin Urine Urobilinogen Ur Leukocyte Esterase Urine WBC (Auto) Urine RBC (Auto) Ur Squamous Epith Cells 08/09/17 08/10/17 08/10/17 23:02 01:20 04:59 WBC 11.3 H RBC 5.02 Hgb 12.3 Hct 37.3 MCV 74.2 L MCH 24.4 L MCHC 32.9 L RDW 17.9 H Plt Count 287 MPV 9.2 Neut % (Auto) 79.1 H Lymph % (Auto) 11.5 L Josephine % (Auto) 8.7 Eos % (Auto) 0.3 Baso % (Auto) 0.4 Neut # (Auto) 8.9 H Lymph # (Auto) 1.3 Josephine # (Auto) 1.0 H Eos # (Auto) 0.0 Baso # (Auto) 0.0 Neutrophils % (Manual) Lymphocytes % (Manual) Monocytes % (Manual) Platelet Estimate Large Platelets Hypochromasia (manual) Poikilocytosis (manual Anisocytosis (manual) Microcytosis (manual) Ovalocytes PT INR APTT D-Dimer, Quantitative Sodium Potassium Chloride Carbon Dioxide Anion Gap BUN Creatinine Est GFR ( Amer) Est GFR (Non-Af Amer) Random Glucose Calcium Magnesium Total Bilirubin AST ALT Alkaline Phosphatase NT-Pro-B Natriuret Pep 2300 H Total Protein Albumin Globulin Albumin/Globulin Ratio Triglycerides Cholesterol LDL Cholesterol Direct HDL Cholesterol Urine Color Yellow Urine Clarity Clear Urine pH 5.0 Ur Specific [place] 1.013 Urine Protein 1+ H Urine Glucose (UA) Normal Urine Ketones Negative Urine Blood Negative Urine Nitrate Negative Urine Bilirubin Negative Urine Urobilinogen Normal Ur Leukocyte Esterase Neg Urine WBC (Auto) 2 Urine RBC (Auto) < 1 Ur Squamous Epith Cells 1 08/10/17 04:59 WBC RBC Hgb Hct MCV MCH MCHC RDW Plt Count MPV Neut % (Auto) Lymph % (Auto) Josephine % (Auto) Eos % (Auto) Baso % (Auto) Neut # (Auto) Lymph # (Auto) Josephine # (Auto) Eos # (Auto) Baso # (Auto) Neutrophils % (Manual) Lymphocytes % (Manual) Monocytes % (Manual) Platelet Estimate Large Platelets Hypochromasia (manual) Poikilocytosis (manual Anisocytosis (manual) Microcytosis (manual) Ovalocytes PT INR APTT D-Dimer, Quantitative Sodium 138 Potassium 4.3 Chloride 100 Carbon Dioxide 27 Anion Gap 16 BUN 16 Creatinine 1.1 Est GFR ( Amer) 57 Est GFR (Non-Af Amer) 47 Random Glucose 115 H Calcium 8.8 Magnesium Total Bilirubin 0.9 AST 82 H D ALT 29 Alkaline Phosphatase 64 NT-Pro-B Natriuret Pep Total Protein 7.8 Albumin 3.5 Globulin 4.3 H Albumin/Globulin Ratio 0.8 L Triglycerides 85 Cholesterol 172 LDL Cholesterol Direct 108 HDL Cholesterol 33 Urine Color Urine Clarity Urine pH Ur Specific [place] Urine Protein Urine Glucose (UA) Urine Ketones Urine Blood Urine Nitrate Urine Bilirubin Urine Urobilinogen Ur Leukocyte Esterase Urine WBC (Auto) Urine RBC (Auto) Ur Squamous Epith Cells Assessment & Plan - Date & Time Date: 08/10/17 (I have seen and examined the patient. I agree with the findings and plan of care as documented by Dr. Youngblood. Patient with pulmonary emboli as seen on CTA. Check lower extremity doppler. Lovenox. On Eliquis for history of atrial fibrillation. Continue home meds for history of CHF and hypertension. Monitor for acute changes.) Time: 06:29 Attending/Attestation - Attestation I have personally seen and examined this patient.: Yes I have fully participated in the care of the patient.: Yes I have reviewed all pertinent clinical information: Yes
[2017-08-10] MEDS: Enoxaparin 100 mg Syringe SC SCH ×2 (02:28→13:05)
[2017-08-10 05:04] LABS: BASO % 0.4 % (0.0-2.0); EOS % 0.3 % (0.0-4.0); HEMOGLOBIN 12.3 g/dL (11.0-16.0); LYMPH # 1.3 K/uL (1.0-4.3); LYMPH % 11.5 % (20.0-40.0); MEAN CELL VOLUME 74.2 fL (81.0-99.0); MEAN CORPUSCULAR HEMOGLOBIN 24.4 pg (27.0-31.0); MEAN CORPUSCULAR HGB CONC 32.9 g/dL (33.0-37.0); MEAN PLATELET VOLUME 9.2 fL (7.2-11.7); MONO % 8.7 % (0.0-10.0); NEUT # 8.9 K/uL (1.8-7.0); NEUT % 79.1 % (50.0-75.0); RBC 5.02 Mil/uL (3.80-5.20); RED CELL DISTRIBUTION WIDTH 17.9 % (11.5-14.5); WHITE BLOOD COUNT 11.3 K/uL (4.8-10.8)
[2017-08-10 05:29] LABS: ALB/GLOB RATIO 0.8 (1.0-2.1); ALBUMIN 3.5 g/dL (3.5-5.0); CALCIUM 8.8 mg/dl (8.6-10.4)
[2017-08-10] MEDS: Sodium Chloride 0.9% 1,000 ML IV SCH ×2 (08:00→19:00)
[2017-08-10] MEDS ORDERED: Sodium Chloride 0.9% 1,000 ML ONE (08:30)
--- NOTE | 2017-08-10 08:52 | RAD ---
PROCEDURE: CHEST RADIOGRAPH, 1 VIEW HISTORY: SOB COMPARISON: Chest radiograph dated 01/10/2017. FINDINGS: LUNGS: Prominence of the pulmonary vasculature may be secondary to AP technique and/or pulmonary vascular congestion. No focal consolidation. PLEURA: No pneumothorax or pleural fluid seen. CARDIOVASCULAR: Left subclavian access single lead pacemaker redemonstrated. Atherosclerotic aortic calcifications. Cardiomediastinal silhouette stably enlarged. OSSEOUS STRUCTURES: Unchanged. VISUALIZED UPPER ABDOMEN: Normal. OTHER FINDINGS: None. IMPRESSION: Prominence of the pulmonary vasculature may be secondary to AP technique and/or pulmonary vascular congestion. No focal consolidation or pleural effusion.
[2017-08-10] MEDS: Metoprolol Succinate 25 mg XL Tab PO SCH (09:24)
--- NOTE | 2017-08-10 14:19 | CP.PCM.PN ---
<Angélica Vuong - Last Filed: 08/10/17 18:50> Subjective - Date & Time of Evaluation Date of Evaluation: 08/10/17 Time of Evaluation: 10:00 - Subjective Subjective: Medicine Note for Hospitalist Service - Dr. Isbell Patient was seen and examined at beside. Patient reports immense pain right calf and around her ankle. Denied any chest pain, SOB, fever, headache, chills, abdominal pain, n/v/d/c, or urinary symptoms. Objective - Vital Signs/Intake and Output Vital Signs (last 24 hours): Temp Pulse Resp BP Pulse Ox 97.9 F 74 16 149/83 94 L 08/10/17 13:57 08/10/17 13:57 08/10/17 13:57 08/10/17 13:57 08/10/17 13:57 - Medications Medications: Current Medications Enoxaparin Sodium (Lovenox) 90 mg SC Q12H [facility] Last Admin: 08/10/17 13:05 Dose: 90 mg Famotidine (Pepcid) 20 mg PO BID [facility] Last Admin: 08/10/17 09:24 Dose: 20 mg Ferrous Sulfate (Feosol) 325 mg PO DAILY [facility] Last Admin: 08/10/17 09:24 Dose: 325 mg Furosemide (Lasix) 40 mg PO DAILY [facility] Last Admin: 08/10/17 09:24 Dose: 40 mg Sodium Chloride (Sodium Chloride 0.9%) 1,000 mls @ 100 mls/hr IV .Q10H [facility] Last Admin: 08/10/17 08:00 Dose: 100 mls/hr Ibuprofen (Motrin Tab) 400 mg PO Q6 PRN PRN Reason: Pain, moderate (4-7) Last Admin: 08/10/17 05:55 Dose: 400 mg Losartan Potassium (Cozaar) 50 mg PO DAILY [facility] Last Admin: 08/10/17 09:24 Dose: 50 mg Metoprolol Succinate (Toprol Xl) 25 mg PO DAILY [facility] Last Admin: 08/10/17 09:24 Dose: 25 mg Tramadol HCl (Ultram) 25 mg PO TID PRN PRN Reason: Pain, severe (8-10) - Labs Labs: 08/10/17 04:59 08/10/17 04:59 PT 12.7 SECONDS (9.7-12.2) H 08/09/17 22:55 INR 1.1 08/09/17 22:55 APTT 31 SECONDS (21-34) 08/09/17 22:55 - Constitutional Appears: No Acute Distress - Head Exam Head Exam: NORMAL INSPECTION, NORMOCEPHALIC - Eye Exam Eye Exam: EOMI, Normal appearance, PERRL Pupil Exam: NORMAL ACCOMODATION - ENT Exam ENT Exam: Mucous Membranes Moist - Respiratory Exam Respiratory Exam: Clear to Ausculation Bilateral, NORMAL BREATHING PATTERN. absent: Decreased Breath Sounds - Cardiovascular Exam Cardiovascular Exam: REGULAR RHYTHM, RRR - GI/Abdominal Exam GI & Abdominal Exam: Soft, Normal Bowel Sounds. absent: Distended, Tenderness - Rectal Exam Rectal Exam: Deferred - Extremities Exam Extremities Exam: Calf Tenderness (Right Calf + asad's sign; right foot below ankle cool to touch; unable to palpate DP, no audible with dopplers. + TP ) - Neurological Exam Neurological Exam: Alert, Awake, Oriented x3 - Psychiatric Exam Psychiatric exam: Normal Affect, Normal Mood - Skin Skin Exam: Dry, Intact, Normal Color Assessment and Plan - Assessment and Plan (Free Text) Plan: Unprovoked Pulmonary emboli Heme/Onc consulted - Dr. Ross- help appreciated Patient was on Eliquis at home for AFib No chest pain, tachycardia Elevated D-dimer 4493 F/U hypercoagubality workup Imaging: * CTA: Pulmonary emboli, pulmonary hypertension, heterogeneous thyroid, and ectasia of ascending thoracic aorta, 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 in diameter (see full report) * EKG: ventricular paced rhythm * CXR: No focal consolidation or effusion Meds: * Lovenox 90 mg SC BID * Held Home dose Eliquis 5mg PO BID ( patient was taking Eliquis 5mg PO daily; she stated that's how she was instructed to take it) Right calf pain Contraindication for SCDs D-dimer 4493 F/U LE US Meds: * Lovenox 90 mg SC BID PVD Vascular Consulted - Dr. Lund- help appreciated F/U arterial dopplers F/U CT abdominal angiography CHF (congestive heart failure) BNP 2300 f/u echo Resume home meds Lasix 40 mg daily Losartan 50 mg daily Toprol XL 25 mg daily Held crestor due to transaminitis A-fib Has Pacemaker Held Eliquis Lovenox 90 mg SC BID Hyperlipidemia Lipid panel - wnl hold statin due to transaminitis Hypertension Continue home meds Losartan 50 mg daily Toprol XL 25 mg daily Iron deficiency anemia H&H stable at this time Continue home ferrous sulfate 325 mg daily Ascending aortic aneurysm seen on prior admission CTA 08/09/17: Pulmonary emboli, pulmonary hypertension, heterogeneous thyroid, and ectasia of ascending thoracic aorta, 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 in diameter (see full report Monitor Prophylactic measure GI: pepcid DVT: lovenox 90 mg SC BID DW Dr. Isbell, Angélica Vuong DO, PGY-1 <Brandi Isbell - Last Filed: 08/10/17 19:26> Objective - Vital Signs/Intake and Output Vital Signs (last 24 hours): Temp Pulse Resp BP Pulse Ox 97.9 F 80 16 139/66 96 08/10/17 13:57 08/10/17 15:20 08/10/17 15:20 08/10/17 14:41 08/10/17 15:20 Intake and Output: 08/10/17 08/11/17 18:59 06:59 Intake Total 0 Balance 0 - Medications Medications: Current Medications Enoxaparin Sodium (Lovenox) 90 mg SC Q12H [facility] Last Admin: 08/10/17 13:05 Dose: 90 mg Famotidine (Pepcid) 20 mg PO BID [facility] Last Admin: 08/10/17 18:34 Dose: 20 mg Ferrous Sulfate (Feosol) 325 mg PO DAILY [facility] Last Admin: 08/10/17 09:24 Dose: 325 mg Furosemide (Lasix) 40 mg PO DAILY [facility] Last Admin: 08/10/17 09:24 Dose: 40 mg Sodium Chloride (Sodium Chloride 0.9%) 1,000 mls @ 100 mls/hr IV .Q10H [facility] Last Admin: 08/10/17 08:00 Dose: 100 mls/hr Ibuprofen (Motrin Tab) 400 mg PO Q6 PRN PRN Reason: Pain, moderate (4-7) Last Admin: 08/10/17 05:55 Dose: 400 mg Losartan Potassium (Cozaar) 50 mg PO DAILY [facility] Last Admin: 08/10/17 09:24 Dose: 50 mg Metoprolol Succinate (Toprol Xl) 25 mg PO DAILY [facility] Last Admin: 08/10/17 09:24 Dose: 25 mg Tramadol HCl (Ultram) 25 mg PO TID PRN PRN Reason: Pain, severe (8-10) Last Admin: 08/10/17 15:34 Dose: 25 mg - Labs Labs: 08/10/17 04:59 08/10/17 04:59 PT 12.7 SECONDS (9.7-12.2) H 08/09/17 22:55 INR 1.1 08/09/17 22:55 APTT 31 SECONDS (21-34) 08/09/17 22:55 Attending/Attestation - Attestation I have personally seen and examined this patient.: Yes I have fully participated in the care of the patient.: Yes I have reviewed all pertinent clinical information, including history, physical exam and plan: Yes
[2017-08-10] MEDS: Tramadol 25 mg PO PRN ×2 (15:34→21:41)
--- NOTE | 2017-08-10 17:23 | CP.PCM.CON ---
History of Present Illness - History of Present Illness History of Present Illness: Surgery Consult: Dr. Lund Pt is an 87F with extensive cardiac medical hx including Afib s/p pacemaker on Eliquis, HTN, CAD, CHF, HLD, anemia, & gastritis who presented to with complaints of RLE pain. Pt states pain started the day prior in the calf and she denies having similar pain in the past. As per the family at bedside, pt is ambulatory but usually doesn't get out of bed much. Pt attributes no exacerbating or alleviating factors. She denies any other complaints. Denies N/v , F/C, chest pain or SOB. Pt admitted to the hospital and found to have PE on CT chest. US of b/l lower extremities also ordered. Pt started on therapeutic lovenox. Vascular surgery called to evaluate for PAD. PMHx: as stated above PSH: pacemaker SocialHx: denies smoking, social EtOH NKDA Review of Systems - Review of Systems All systems: reviewed and no additional remarkable complaints except (as per HPI ) Past Patient History - Infectious Disease Hx of Infectious Diseases: None - Past Medical History & Family History Past Medical History?: Yes - Past Social History Smoking Status: Never Smoked - CARDIAC Hx Cardiac Disorders: Yes Hx Atrial Fibrillation: Yes Hx Congestive Heart Failure: Yes Hx Hypercholesterolemia: Yes Hx Hypertension: Yes - PULMONARY Hx Respiratory Disorders: Yes Hx Pneumonia: Yes - NEUROLOGICAL Hx Neurological Disorder: No - HEENT Hx HEENT Problems: Yes Hx Blind: Yes (left eye) Hx Cataracts: Yes (left eye) - RENAL Hx Chronic Kidney Disease: No - ENDOCRINE/METABOLIC Hx Endocrine Disorders: No - HEMATOLOGICAL/ONCOLOGICAL Hx Blood Disorders: No - INTEGUMENTARY Hx Dermatological Problems: No - MUSCULOSKELETAL/RHEUMATOLOGICAL Hx Musculoskeletal Disorders: No Hx Falls: No - GASTROINTESTINAL Hx Gastrointestinal Disorders: No - GENITOURINARY/GYNECOLOGICAL Hx Genitourinary Disorders: No - PSYCHIATRIC Hx Psychophysiologic Disorder: No Hx Substance Use: No - SURGICAL HISTORY Hx Surgeries: Yes Other/Comment: PACEMAKER PER PATIENT [address] Moeller - ANESTHESIA Hx Anesthesia: Yes Hx Anesthesia Reactions: No Hx Malignant Hyperthermia: No Meds Allergies/Adverse Reactions: Allergies Allergy/AdvReac Type Severity Reaction Status Date / Time No Known Allergies Allergy Verified 08/09/17 20:24 - Medications Medications: Current Medications Enoxaparin Sodium (Lovenox) 90 mg SC Q12H [facility] Last Admin: 08/10/17 13:05 Dose: 90 mg Famotidine (Pepcid) 20 mg PO BID [facility] Last Admin: 08/10/17 09:24 Dose: 20 mg Ferrous Sulfate (Feosol) 325 mg PO DAILY [facility] Last Admin: 08/10/17 09:24 Dose: 325 mg Furosemide (Lasix) 40 mg PO DAILY [facility] Last Admin: 08/10/17 09:24 Dose: 40 mg Sodium Chloride (Sodium Chloride 0.9%) 1,000 mls @ 100 mls/hr IV .Q10H [facility] Last Admin: 08/10/17 08:00 Dose: 100 mls/hr Ibuprofen (Motrin Tab) 400 mg PO Q6 PRN PRN Reason: Pain, moderate (4-7) Last Admin: 08/10/17 05:55 Dose: 400 mg Losartan Potassium (Cozaar) 50 mg PO DAILY [facility] Last Admin: 08/10/17 09:24 Dose: 50 mg Metoprolol Succinate (Toprol Xl) 25 mg PO DAILY [facility] Last Admin: 08/10/17 09:24 Dose: 25 mg Tramadol HCl (Ultram) 25 mg PO TID PRN PRN Reason: Pain, severe (8-10) Last Admin: 08/10/17 15:34 Dose: 25 mg Physical Exam - Constitutional Appears: Well, No Acute Distress - Head Exam Head Exam: ATRAUMATIC, NORMOCEPHALIC - ENT Exam ENT Exam: Mucous Membranes Moist - Respiratory Exam Respiratory Exam: NORMAL BREATHING PATTERN - Cardiovascular Exam Cardiovascular Exam: RRR - GI/Abdominal Exam GI & Abdominal Exam: Soft. absent: Tenderness - Extremities Exam Additional comments: b/l LE cold to touch R > L, palpable femoral b/l, non-palpable DP/PT, b/l monophasic signals in DP. Sensation/motor intact - Neurological Exam Neurological exam: Alert, Oriented x3 - Skin Skin Exam: Dry Results - Vital Signs Recent Vital Signs: Last Vital Signs Temp 97.9 F 08/10/17 13:57 Pulse 80 08/10/17 15:20 Resp 16 08/10/17 15:20 BP 139/66 08/10/17 14:41 Pulse Ox 96 08/10/17 15:20 - Labs Result Diagrams: 08/10/17 04:59 08/10/17 04:59 Labs: Laboratory Results - last 24 hr 08/09/17 08/09/17 08/09/17 22:15 22:15 22:55 WBC 12.9 H RBC 5.31 H Hgb 12.8 Hct 39.2 MCV 73.8 L MCH 24.1 L MCHC 32.7 L RDW 17.5 H Plt Count 319 MPV 8.9 Neut % (Auto) 86.4 H Lymph % (Auto) 6.5 L [place] % (Auto) 6.4 Eos % (Auto) 0.2 Baso % (Auto) 0.5 Neut # (Auto) 11.1 H Lymph # (Auto) 0.8 L [place] # (Auto) 0.8 Eos # (Auto) 0.0 Baso # (Auto) 0.1 Neutrophils % (Manual) 92 H Lymphocytes % (Manual) 3 L Monocytes % (Manual) 5 Platelet Estimate Normal Large Platelets Present Hypochromasia (manual) Slight Poikilocytosis (manual Slight Anisocytosis (manual) Slight Microcytosis (manual) Slight Ovalocytes Slight PT 12.7 H INR 1.1 APTT 31 D-Dimer, Quantitative 4493 H Sodium 140 Potassium 4.4 Chloride 102 Carbon Dioxide 27 Anion Gap 15 BUN 17 Creatinine 1.2 Est GFR ( Amer) 51 Est GFR (Non-Af Amer) 42 Random Glucose 113 H Calcium 9.5 Magnesium 1.9 Total Bilirubin 0.8 AST 51 H ALT 24 Alkaline Phosphatase 81 NT-Pro-B Natriuret Pep Total Protein 8.5 H Albumin 3.8 Globulin 4.7 H Albumin/Globulin Ratio 0.8 L Triglycerides Cholesterol LDL Cholesterol Direct HDL Cholesterol Homocysteine Urine Color Urine Clarity Urine pH Ur Specific [place] Urine Protein Urine Glucose (UA) Urine Ketones Urine Blood Urine Nitrate Urine Bilirubin Urine Urobilinogen Ur Leukocyte Esterase Urine WBC (Auto) Urine RBC (Auto) Ur Squamous Epith Cells 08/09/17 08/10/17 08/10/17 23:02 01:20 04:59 WBC 11.3 H RBC 5.02 Hgb 12.3 Hct 37.3 MCV 74.2 L MCH 24.4 L MCHC 32.9 L RDW 17.9 H Plt Count 287 MPV 9.2 Neut % (Auto) 79.1 H Lymph % (Auto) 11.5 L [place] % (Auto) 8.7 Eos % (Auto) 0.3 Baso % (Auto) 0.4 Neut # (Auto) 8.9 H Lymph # (Auto) 1.3 [place] # (Auto) 1.0 H Eos # (Auto) 0.0 Baso # (Auto) 0.0 Neutrophils % (Manual) Lymphocytes % (Manual) Monocytes % (Manual) Platelet Estimate Large Platelets Hypochromasia (manual) Poikilocytosis (manual Anisocytosis (manual) Microcytosis (manual) Ovalocytes PT INR APTT D-Dimer, Quantitative Sodium Potassium Chloride Carbon Dioxide Anion Gap BUN Creatinine Est GFR ( Amer) Est GFR (Non-Af Amer) Random Glucose Calcium Magnesium Total Bilirubin AST ALT Alkaline Phosphatase NT-Pro-B Natriuret Pep 2300 H Total Protein Albumin Globulin Albumin/Globulin Ratio Triglycerides Cholesterol LDL Cholesterol Direct HDL Cholesterol Homocysteine Urine Color Yellow Urine Clarity Clear Urine pH 5.0 Ur Specific [place] 1.013 Urine Protein 1+ H Urine Glucose (UA) Normal Urine Ketones Negative Urine Blood Negative Urine Nitrate Negative Urine Bilirubin Negative Urine Urobilinogen Normal Ur Leukocyte Esterase Neg Urine WBC (Auto) 2 Urine RBC (Auto) < 1 Ur Squamous Epith Cells 1 08/10/17 08/10/17 04:59 09:43 WBC RBC Hgb Hct MCV MCH MCHC RDW Plt Count MPV Neut % (Auto) Lymph % (Auto) [place] % (Auto) Eos % (Auto) Baso % (Auto) Neut # (Auto) Lymph # (Auto) [place] # (Auto) Eos # (Auto) Baso # (Auto) Neutrophils % (Manual) Lymphocytes % (Manual) Monocytes % (Manual) Platelet Estimate Large Platelets Hypochromasia (manual) Poikilocytosis (manual Anisocytosis (manual) Microcytosis (manual) Ovalocytes PT INR APTT D-Dimer, Quantitative Sodium 138 Potassium 4.3 Chloride 100 Carbon Dioxide 27 Anion Gap 16 BUN 16 Creatinine 1.1 Est GFR ( Amer) 57 Est GFR (Non-Af Amer) 47 Random Glucose 115 H Calcium 8.8 Magnesium Total Bilirubin 0.9 AST 82 H D ALT 29 Alkaline Phosphatase 64 NT-Pro-B Natriuret Pep Total Protein 7.8 Albumin 3.5 Globulin 4.3 H Albumin/Globulin Ratio 0.8 L Triglycerides 85 Cholesterol 172 LDL Cholesterol Direct 108 HDL Cholesterol 33 Homocysteine 15.1 H Urine Color Urine Clarity Urine pH Ur Specific [place] Urine Protein Urine Glucose (UA) Urine Ketones Urine Blood Urine Nitrate Urine Bilirubin Urine Urobilinogen Ur Leukocyte Esterase Urine WBC (Auto) Urine RBC (Auto) Ur Squamous Epith Cells - Imaging and Cardiology CT scan - chest Status: Image reviewed by me, Report reviewed by me Assessment & Plan - Assessment and Plan (Free Text) Assessment: 87F with PE, poss 2/2 DVT. Vascular surgery evaluating for PVD Plan: - obtain ileofemoral CTA with runoff - f/u venous/arterial dopplers of b/l LE - pt seen and examined with Dr. Ashely Vick, PGY-3
[2017-08-11] MEDS: Sodium Chloride 0.9% 1,000 ML IV SCH ×2 (05:38→23:00)
[2017-08-11 06:10] LABS: BASO # 0.1 K/uL (0.0-0.2); BASO % 0.7 % (0.0-2.0); EOS # 0.1 K/uL (0.0-0.7); EOS % 0.7 % (0.0-4.0); HEMOGLOBIN 13.1 g/dL (11.0-16.0); LYMPH # 1.3 K/uL (1.0-4.3); LYMPH % 14.7 % (20.0-40.0); MEAN CELL VOLUME 75.5 fL (81.0-99.0); MEAN CORPUSCULAR HEMOGLOBIN 24.5 pg (27.0-31.0); MEAN CORPUSCULAR HGB CONC 32.4 g/dL (33.0-37.0); MEAN PLATELET VOLUME 9.9 fL (7.2-11.7); MONO # 0.9 K/uL (0.0-0.8); MONO % 9.6 % (0.0-10.0); NEUT # 6.8 K/uL (1.8-7.0); NEUT % 74.3 % (50.0-75.0); RBC 5.34 Mil/uL (3.80-5.20); RED CELL DISTRIBUTION WIDTH 18.1 % (11.5-14.5); WHITE BLOOD COUNT 9.1 K/uL (4.8-10.8)
[2017-08-11 06:25] LABS: ALB/GLOB RATIO 0.9 (1.0-2.1); ALBUMIN 3.8 g/dL (3.5-5.0); CALCIUM 8.8 mg/dl (8.6-10.4)
--- NOTE | 2017-08-11 07:50 | CP.PCM.PN ---
Subjective - Date & Time of Evaluation Date of Evaluation: 08/11/17 Time of Evaluation: 07:00 - Subjective Subjective: Surgery Progress note. Dr Lund Pt seen and examined at bedside. No acute events overnight. Denies any new complaints. Denies SOB. No CP. No n/V/D. Objective - Vital Signs/Intake and Output Vital Signs (last 24 hours): Temp Pulse Resp BP Pulse Ox 97.6 F 80 14 121/69 92 L 08/10/17 20:00 08/11/17 06:00 08/11/17 06:00 08/11/17 05:37 08/11/17 01:00 Intake and Output: 08/11/17 08/11/17 06:59 18:59 Intake Total 1440 Output Total 500 Balance 940 - Medications Medications: Current Medications Enoxaparin Sodium (Lovenox) 90 mg SC Q12H [facility] Last Admin: 08/11/17 00:00 Dose: 90 mg Famotidine (Pepcid) 20 mg PO BID [facility] Last Admin: 08/10/17 18:34 Dose: 20 mg Ferrous Sulfate (Feosol) 325 mg PO DAILY [facility] Last Admin: 08/10/17 09:24 Dose: 325 mg Furosemide (Lasix) 40 mg PO DAILY [facility] Last Admin: 08/10/17 09:24 Dose: 40 mg Sodium Chloride (Sodium Chloride 0.9%) 1,000 mls @ 100 mls/hr IV .Q10H [facility] Last Admin: 08/11/17 05:38 Dose: 100 mls/hr Ibuprofen (Motrin Tab) 400 mg PO Q6 PRN PRN Reason: Pain, moderate (4-7) Last Admin: 08/10/17 05:55 Dose: 400 mg Losartan Potassium (Cozaar) 50 mg PO DAILY [facility] Last Admin: 08/10/17 09:24 Dose: 50 mg Metoprolol Succinate (Toprol Xl) 25 mg PO DAILY [facility] Last Admin: 08/10/17 09:24 Dose: 25 mg Tramadol HCl (Ultram) 25 mg PO TID PRN PRN Reason: Pain, severe (8-10) Last Admin: 08/10/17 21:41 Dose: 25 mg - Labs Labs: 08/11/17 06:02 08/11/17 06:02 PT 12.7 SECONDS (9.7-12.2) H 08/09/17 22:55 INR 1.1 08/09/17 22:55 APTT 31 SECONDS (21-34) 08/09/17 22:55 - Constitutional Appears: Non-toxic, No Acute Distress - Head Exam Head Exam: ATRAUMATIC, NORMAL INSPECTION, NORMOCEPHALIC - Eye Exam Eye Exam: EOMI, Normal appearance - ENT Exam ENT Exam: Mucous Membranes Moist - Respiratory Exam Respiratory Exam: NORMAL BREATHING PATTERN. absent: Accessory Muscle Use, Respiratory Distress - Cardiovascular Exam Cardiovascular Exam: absent: JVD - GI/Abdominal Exam GI & Abdominal Exam: Soft. absent: Guarding, Rigid, Tenderness, Rebound - Extremities Exam Additional comments: Bilateral lower extremity with warm toes. No tenderness to palpation. Trace pretibial edema - Neurological Exam Neurological Exam: Alert, Awake, Oriented x3 - Psychiatric Exam Psychiatric exam: Normal Affect, Normal Mood - Skin Skin Exam: Dry, Intact, Normal Color, Warm Assessment and Plan - Assessment and Plan (Free Text) Assessment: 87yo F with PE, poss 2/2 DVT. Vascular surgery evaluating for PVD Plan: - f/u ileofemoral CTA with runoff - f/u venous/arterial Duplex studies of b/l LE - Will make further recommendations after studies - Medical maximization as per ICU and primary teams. Hyperkalemic this morning. Creat increasing Further recs as per Dr. Ashely Sky PGY1 surgery pager: [phone]
[2017-08-11] MEDS: Metoprolol Succinate 25 mg XL Tab PO SCH (09:36)
[2017-08-11] MEDS ORDERED: Sod Polystyrene Sulf 15 gm/60 ml Susp PO ONE (10:41)
[2017-08-11] MEDS: Tramadol 25 mg PO PRN ×2 (11:26→23:31)
[2017-08-11] MEDS: Enoxaparin 100 mg Syringe SC SCH ×3 (12:39→23:46)
--- NOTE | 2017-08-11 14:52 | CP.PCM.PN ---
<Arlyn Youngblood - Last Filed: 08/11/17 15:06> Subjective - Date & Time of Evaluation Date of Evaluation: 08/11/17 Time of Evaluation: 07:40 - Subjective Subjective: Patient seen and examined at bedside. Patient resting comfrtably in bed with no new complaints at this time. Patient still having a lot of pain in the right lower extremity. She denies chest pain, SOB, cough, headache, fever, chills, abdominal pain, n/v/d/c. Objective - Vital Signs/Intake and Output Vital Signs (last 24 hours): Temp Pulse Resp BP Pulse Ox 98.4 F 80 11 L 128/80 93 L 08/11/17 08:00 08/11/17 13:27 08/11/17 13:27 08/11/17 13:27 08/11/17 13:27 Intake and Output: 08/11/17 08/11/17 06:59 18:59 Intake Total 1440 Output Total 500 Balance 940 - Medications Medications: Current Medications Enoxaparin Sodium (Lovenox) 90 mg SC Q12H [facility] Last Admin: 08/11/17 00:00 Dose: 90 mg Famotidine (Pepcid) 20 mg PO BID [facility] Last Admin: 08/11/17 09:35 Dose: 20 mg Ferrous Sulfate (Feosol) 325 mg PO DAILY [facility] Last Admin: 08/11/17 09:35 Dose: 325 mg Furosemide (Lasix) 40 mg PO DAILY [facility] Last Admin: 08/11/17 09:35 Dose: 40 mg Sodium Chloride (Sodium Chloride 0.9%) 1,000 mls @ 100 mls/hr IV .Q10H [facility] Last Admin: 08/11/17 05:38 Dose: 100 mls/hr Ibuprofen (Motrin Tab) 400 mg PO Q6 PRN PRN Reason: Pain, moderate (4-7) Last Admin: 08/10/17 05:55 Dose: 400 mg Losartan Potassium (Cozaar) 50 mg PO DAILY [facility] Last Admin: 08/11/17 09:36 Dose: 50 mg Metoprolol Succinate (Toprol Xl) 25 mg PO DAILY [facility] Last Admin: 08/11/17 09:36 Dose: 25 mg Tramadol HCl (Ultram) 25 mg PO TID PRN PRN Reason: Pain, severe (8-10) Last Admin: 08/11/17 11:26 Dose: 25 mg - Labs Labs: 08/11/17 06:02 08/11/17 06:02 PT 12.7 SECONDS (9.7-12.2) H 08/09/17 22:55 INR 1.1 08/09/17 22:55 APTT 31 SECONDS (21-34) 08/09/17 22:55 - Constitutional Appears: Non-toxic, No Acute Distress - Head Exam Head Exam: ATRAUMATIC, NORMAL INSPECTION, NORMOCEPHALIC - Eye Exam Eye Exam: EOMI, Normal appearance, PERRL - ENT Exam ENT Exam: Mucous Membranes Moist - Respiratory Exam Respiratory Exam: Clear to Ausculation Bilateral, NORMAL BREATHING PATTERN. absent: Accessory Muscle Use, Rales, Rhonchi, Wheezes, Respiratory Distress - Cardiovascular Exam Cardiovascular Exam: RRR, +S1, +S2. absent: Bradycardia, Tachycardia, Diastolic murmur, Gallop, Rubs, Murmur - GI/Abdominal Exam GI & Abdominal Exam: Soft, Normal Bowel Sounds. absent: Distended, Tenderness - Extremities Exam Extremities Exam: Calf Tenderness (right), Pedal Edema (b/l) Additional comments: unable to find pecal pulses on right with doppler - Neurological Exam Neurological Exam: Alert, Awake, Oriented x3 - Psychiatric Exam Psychiatric exam: Normal Affect, Normal Mood - Skin Skin Exam: Dry, Intact, Normal Color, Warm Assessment and Plan (1) Pulmonary emboli Status: Acute (2) Right calf pain Status: Acute (3) CHF (congestive heart failure) Status: Chronic (4) A-fib Status: Chronic (5) Hyperlipidemia Status: Chronic (6) Hypertension Status: Chronic (7) Iron deficiency anemia Status: Chronic (8) Ascending aortic aneurysm Status: Chronic (9) Prophylactic measure Status: Acute - Assessment and Plan (Free Text) Plan: Pulmonary emboli * Right calf pain and elevated D-dimer 4493 * No tachycardia, chest pain, SOB * Heme/Onc consulted - Dr. Ross- help appreciated * Patient was on Eliquis at home for AFib * Homocysteine level elevated 15.1 * Protein S activity/antigen * Protein C activity/antigen * Factor V leiden * Antithrombin III * Antiphospholipid Imaging * CTA: Pulmonary emboli, pulmonary hypertension, heterogeneous thyroid, and ectasia of ascending thoracic aorta, 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 in diameter (see full report) * EKG: ventricular paced rhythm * CXR No focal consolidation or effusion Meds * Lovenox 90 mg SC BID * Held Home dose Eliquis 5mg PO BID ( patient was taking Eliquis 5mg PO daily; she stated that's how she was instructed to take it) Right calf pain * D-dimer 4493 * f/u LE venous US * Contraindication for SCDs Meds: * Lovenox 90 mg SC BID PVD * Vascular Consulted - Dr. Lund- help appreciated * F/U arterial dopplers * F/U CT abdominal angiography Hyperkalemia * Calcium gluconate and kayexalate given 08/11 * f/u repeat BMP in afternoon ALBIN * BUN/Cr: 20/1.3 * CPK * LDH CHF (congestive heart failure) * BNP 2300 * f/u echo * CXR No focal consolidation or effusion * Continue home meds * Lasix 40 mg daily * Losartan 50 mg daily * Toprol XL 25 mg daily * Hold crestor due to transaminitis A-fib * Hold home Eliquis 5 mg PO BID * Has Pacemaker Hyperlipidemia * lipid panel WNL * hold statin due to transaminitis Hypertension * Continue home meds * Losartan 50 mg daily * Toprol XL 25 mg daily Iron deficiency anemia * H&H stable at this time * Continue home ferrous sulfate 325 mg daily Ascending aortic aneurysm * seen on prior admission * CTA 08/09/17: Pulmonary emboli, pulmonary hypertension, heterogeneous thyroid, and ectasia of ascending thoracic aorta, 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 in diameter (see full report) * Monitor Prophylactic measure * GI: pepcid * DVT: lovenox 90 mg SC BID <Jose David Madden H - Last Filed: 08/11/17 16:25> Objective - Vital Signs/Intake and Output Vital Signs (last 24 hours): Temp Pulse Resp BP Pulse Ox 98.4 F 80 12 128/80 100 08/11/17 08:00 08/11/17 14:00 08/11/17 14:00 08/11/17 13:27 08/11/17 14:00 Intake and Output: 08/11/17 08/11/17 06:59 18:59 Intake Total 1440 Output Total 500 Balance 940 - Medications Medications: Current Medications Enoxaparin Sodium (Lovenox) 90 mg SC Q12H [facility] Last Admin: 08/11/17 12:39 Dose: 90 mg Famotidine (Pepcid) 20 mg PO BID [facility] Last Admin: 08/11/17 09:35 Dose: 20 mg Ferrous Sulfate (Feosol) 325 mg PO DAILY [facility] Last Admin: 08/11/17 09:35 Dose: 325 mg Furosemide (Lasix) 40 mg PO DAILY [facility] Last Admin: 08/11/17 09:35 Dose: 40 mg Sodium Chloride (Sodium Chloride 0.9%) 1,000 mls @ 100 mls/hr IV .Q10H [facility] Last Admin: 08/11/17 05:38 Dose: 100 mls/hr Ibuprofen (Motrin Tab) 400 mg PO Q6 PRN PRN Reason: Pain, moderate (4-7) Last Admin: 08/11/17 15:46 Dose: 400 mg Losartan Potassium (Cozaar) 50 mg PO DAILY [facility] Last Admin: 08/11/17 09:36 Dose: 50 mg Metoprolol Succinate (Toprol Xl) 25 mg PO DAILY [facility] Last Admin: 08/11/17 09:36 Dose: 25 mg Tramadol HCl (Ultram) 25 mg PO TID PRN PRN Reason: Pain, severe (8-10) Last Admin: 08/11/17 11:26 Dose: 25 mg - Labs Labs: 08/11/17 06:02 08/11/17 06:02 PT 12.7 SECONDS (9.7-12.2) H 08/09/17 22:55 INR 1.1 08/09/17 22:55 APTT 31 SECONDS (21-34) 08/09/17 22:55 Attending/Attestation - Attestation I have personally seen and examined this patient.: Yes I have fully participated in the care of the patient.: Yes I have reviewed all pertinent clinical information, including history, physical exam and plan: Yes Notes (Text): 08/11/17 16:21 Medical attending: Patient was seen and examined by me with the medical nurse. Agree with the above note by the resident. When we saw her the patient was not in any acute distress. She is alert and orientated. Communication was done with the help of power engineer. As mentioned previously this patient with a concerning findings of right-sided DVT with right side peripheral arterial disease. She was found to have a pulmonary embolism. She is currently on BID 90 Lovenox for anticoagulation at this time. She denied having chest pain, denied having shortness of breath, denied having palpitations. She is currently pending a CT of the abdomen and pelvis with iliofemoral runoff. They're trying to see if she has adequate blood flow to the right lower extremity. On physical exam I used a bedside Doppler with [email or web address] to see if we get a pulse by was not able to myself. She is not in any acute distress. She indicated to us that at rest she was not in pain however trying to move the right leg caused her a lot of pain particularly with the distal side of her extremity.Today on review of her lab work her potassium was somewhat elevated work and give Kayexalate as well as calcium gluconate. Also the creatine was elevated as well. We'll hold the Lasix for today If the creatinine increases will probably have to renally adjust the patient's Lovenox dose. She is currently on 90 subcutaneous twice a day. Or we could switch over to heparin. Thank you very much, Jose David Madden
[2017-08-11 16:49] LABS: CALCIUM 8.7 mg/dl (8.6-10.4)
[2017-08-12 07:03] LABS: BASO % 0.5 % (0.0-2.0); EOS # 0.1 K/uL (0.0-0.7); EOS % 0.9 % (0.0-4.0); HEMOGLOBIN 12.3 g/dL (11.0-16.0); LYMPH # 1.4 K/uL (1.0-4.3); LYMPH % 14.1 % (20.0-40.0); MEAN CELL VOLUME 76.2 fL (81.0-99.0); MEAN CORPUSCULAR HEMOGLOBIN 24.3 pg (27.0-31.0); MEAN CORPUSCULAR HGB CONC 31.9 g/dL (33.0-37.0); MEAN PLATELET VOLUME 10.5 fL (7.2-11.7); MONO % 9.5 % (0.0-10.0); NEUT # 7.7 K/uL (1.8-7.0); RBC 5.06 Mil/uL (3.80-5.20); RED CELL DISTRIBUTION WIDTH 17.8 % (11.5-14.5); WHITE BLOOD COUNT 10.3 K/uL (4.8-10.8)
[2017-08-12 07:08] LABS: ALB/GLOB RATIO 0.8 (1.0-2.1); ALBUMIN 3.1 g/dL (3.5-5.0); CALCIUM 8.3 mg/dl (8.6-10.4)
[2017-08-12] MEDS: Sodium Chloride 0.9% 1,000 ML IV SCH ×3 (08:01→22:11)
[2017-08-12] MEDS: Metoprolol Succinate 25 mg XL Tab PO SCH (09:12)
--- NOTE | 2017-08-12 09:59 | CP.PCM.PN ---
<Arlyn Youngblood - Last Filed: 08/12/17 13:20> Subjective - Date & Time of Evaluation Date of Evaluation: 08/12/17 Time of Evaluation: 07:20 - Subjective Subjective: Patient seen and examined at bedside. Patient resting comfortably in bed with no new complaints at this time. Patient is still having pain in the right leg. Patient also admits to some stomach pain but then clarifies that she is just hungry. She is tolerating her diet well. She denies chest pain, shortness of breath, palpitations, n/v/d/c. Objective - Vital Signs/Intake and Output Vital Signs (last 24 hours): Temp Pulse Resp BP Pulse Ox 98 F 80 15 130/75 100 08/12/17 08:00 08/12/17 09:13 08/12/17 09:13 08/12/17 09:13 08/12/17 09:13 Intake and Output: 08/12/17 08/12/17 06:59 18:59 Intake Total 1440 Output Total 650 Balance 790 - Medications Medications: Current Medications Enoxaparin Sodium (Lovenox) 90 mg SC Q12H [facility] Last Admin: 08/11/17 23:46 Dose: 90 mg Famotidine (Pepcid) 20 mg PO BID [facility] Last Admin: 08/12/17 09:12 Dose: 20 mg Ferrous Sulfate (Feosol) 325 mg PO DAILY [facility] Last Admin: 08/12/17 09:12 Dose: 325 mg Sodium Chloride (Sodium Chloride 0.9%) 1,000 mls @ 100 mls/hr IV .Q10H [facility] Last Admin: 08/12/17 08:01 Dose: 100 mls/hr Ibuprofen (Motrin Tab) 400 mg PO Q6 PRN PRN Reason: Pain, moderate (4-7) Last Admin: 08/12/17 05:34 Dose: 400 mg Metoprolol Succinate (Toprol Xl) 25 mg PO DAILY [facility] Last Admin: 08/12/17 09:12 Dose: 25 mg Tramadol HCl (Ultram) 25 mg PO TID PRN PRN Reason: Pain, severe (8-10) Last Admin: 08/11/17 23:31 Dose: 25 mg - Labs Labs: 08/12/17 06:34 08/12/17 06:34 PT 12.7 SECONDS (9.7-12.2) H 08/09/17 22:55 INR 1.1 08/09/17 22:55 APTT 31 SECONDS (21-34) 08/09/17 22:55 - Additional Findings Additional findings: - Constitutional Appears: Non-toxic, No Acute Distress - Head Exam Head Exam: ATRAUMATIC, NORMAL INSPECTION, NORMOCEPHALIC - Eye Exam Eye Exam: EOMI, Normal appearance, PERRL - ENT Exam ENT Exam: Mucous Membranes Moist - Respiratory Exam Respiratory Exam: Clear to Ausculation Bilateral, NORMAL BREATHING PATTERN. absent: Accessory Muscle Use, Rales, Rhonchi, Wheezes, Respiratory Distress - Cardiovascular Exam Cardiovascular Exam: RRR, +S1, +S2. absent: Bradycardia, Tachycardia, Diastolic murmur, Gallop, Rubs, Murmur - GI/Abdominal Exam GI & Abdominal Exam: Soft, Normal Bowel Sounds. absent: Distended, Tenderness - Extremities Exam Extremities Exam: Calf Tenderness (right), Pedal Edema (b/l) Additional comments: Lower legs/feet feel cool to the touch - Neurological Exam Neurological Exam: Alert, Awake, Oriented x3 - Psychiatric Exam Psychiatric exam: Normal Affect, Normal Mood - Skin Skin Exam: Dry, Intact, Normal Color, Warm Assessment and Plan (1) Pulmonary emboli Status: Acute (2) Right calf pain Status: Acute (3) CHF (congestive heart failure) Status: Chronic (4) A-fib Status: Chronic (5) Hyperlipidemia Status: Chronic (6) Hypertension Status: Chronic (7) Iron deficiency anemia Status: Chronic (8) Ascending aortic aneurysm Status: Chronic (9) Prophylactic measure Status: Acute - Assessment and Plan (Free Text) Plan: Pulmonary emboli * Right calf pain and elevated D-dimer 4493 * No tachycardia, chest pain, SOB * Heme/Onc consulted - Dr. Ross- help appreciated * Patient was on Eliquis at home for AFib * Homocysteine level elevated 15.1 * Protein S activity/antigen * Protein C activity/antigen * Factor V leiden * Antithrombin III * Antiphospholipid Imaging * CTA: Pulmonary emboli, pulmonary hypertension, heterogeneous thyroid, and ectasia of ascending thoracic aorta, 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 in diameter (see full report) * EKG: ventricular paced rhythm * CXR No focal consolidation or effusion Meds * Lovenox 65 mg SC BID - renally dosed * Held Home dose Eliquis 5mg PO BID ( patient was taking Eliquis 5mg PO daily; she stated that's how she was instructed to take it) Right calf pain * D-dimer 4493 * f/u LE venous US * Contraindication for SCDs Meds: * Lovenox 65 mg SC BID - renally dosed PVD * Vascular Consulted - Dr. Lund- help appreciated * F/U arterial dopplers * F/U iliofemoral CTA with runoff - on hold due to ALBIN * F/U CT abdominal angiography - on hold due to ALBIN Hyperkalemia - resolved * Calcium gluconate and kayexalate given 08/11 ALBIN * BUN/Cr: 18/.3 * CPK: 68403 * LDH: 1061 * NS @ 150 cc/h * Currently holding ileofemoral CTA with runoff and Abd CTA * Hold all nephrotoxic agents and renally dose lovenox/pepcid for now CHF (congestive heart failure) * BNP 2300 * f/u echo * CXR No focal consolidation or effusion * Continue home meds * Toprol XL 25 mg daily * Hold crestor due to transaminitis * Hold Lasix 40 mg daily due to ALBIN * Hold Losartan 50 mg daily due to ALBIN A-fib * Hold home Eliquis 5 mg PO BID * Has Pacemaker Hyperlipidemia * lipid panel WNL * hold statin due to transaminitis Hypertension * Continue home meds * Toprol XL 25 mg daily * Hold Losartan 50 mg daily due to ALBIN Iron deficiency anemia * H&H stable at this time * Continue home ferrous sulfate 325 mg daily Ascending aortic aneurysm * seen on prior admission * CTA 08/09/17: Pulmonary emboli, pulmonary hypertension, heterogeneous thyroid, and ectasia of ascending thoracic aorta, 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 in diameter (see full report) * Monitor Prophylactic measure * GI: pepcid * DVT: lovenox 90 mg SC BID <Jose David Madden - Last Filed: 08/12/17 15:19> Objective - Vital Signs/Intake and Output Vital Signs (last 24 hours): Temp Pulse Resp BP Pulse Ox 98.0 F 79 20 143/78 100 08/12/17 13:45 08/12/17 13:45 08/12/17 13:45 08/12/17 13:45 08/12/17 13:45 Intake and Output: 08/12/17 08/12/17 06:59 18:59 Intake Total 1440 Output Total 650 Balance 790 - Medications Medications: Current Medications Enoxaparin Sodium (Lovenox) 65 mg SC Q12 [facility] Last Admin: 08/12/17 13:50 Dose: Not Given Famotidine (Pepcid) 20 mg PO DAILY [facility] Ferrous Sulfate (Feosol) 325 mg PO DAILY [facility] Last Admin: 08/12/17 09:12 Dose: 325 mg Sodium Chloride (Sodium Chloride 0.9%) 1,000 mls @ 150 mls/hr IV .Q6H40M [facility] Last Admin: 08/12/17 12:14 Dose: Not Given Metoprolol Succinate (Toprol Xl) 25 mg PO DAILY [facility] Last Admin: 08/12/17 09:12 Dose: 25 mg Tramadol HCl (Ultram) 25 mg PO TID PRN PRN Reason: Pain, severe (8-10) Last Admin: 08/12/17 14:24 Dose: 25 mg - Labs Labs: 08/12/17 06:34 08/12/17 06:34 PT 12.7 SECONDS (9.7-12.2) H 08/09/17 22:55 INR 1.1 08/09/17 22:55 APTT 31 SECONDS (21-34) 08/09/17 22:55 Attending/Attestation - Attestation I have personally seen and examined this patient.: Yes I have fully participated in the care of the patient.: Yes I have reviewed all pertinent clinical information, including history, physical exam and plan: Yes Notes (Text): 08/12/17 15:19 Medical attending: Patient was seen and examined by me as well. Agree with the above note by the resident. Because of the elevated creatinine, this is hold up the patient for getting a CT of the abdomen and pelvis with IV runoff to the lower extremities. Since yesterday we've stopped the Lasix, will held ARB, we also held naproxen as well since this is NSAID class and can also affect the kidneys. She is on intravenous fluids. We'll continue to monitor renal function and hopefully what we've done will be able to bring down creatinine Subjective decrease the Lovenox 90 mg subcutaneous twice a day to just 65 mg twice a day due to her renal function. As previously mentioned she was also found to have pulmonary embolism currently her breathing is stable. She also denies having chest pain as well thank you Jose David Madden
[2017-08-12] MEDS: Enoxaparin 100 mg Syringe SC SCH (11:48)
--- NOTE | 2017-08-12 12:00 | VASCLAB ---
PROCEDURE: Lower Extremity Venous Duplex Exam. HISTORY: Calf pain, Homans positive PRIORS: None. TECHNIQUE: Bilateral common femoral, femoral, popliteal and posterior tibial, peroneal and great saphenous veins were evaluated. Flow was assessed with color Doppler, compressibility, assessment of phasic flow and augmentation response. Report prepared by ERMELINDA Wallace FINDINGS: RIGHT: 1. Common Femoral Vein: 1.1. Compressibility - Fully compressible: Thrombus - None : Flow - Phasic: Augmentation -Normal: Reflux - None. 2. Femoral Vein: 2.1. Compressibility - Fully compressible: Thrombus - None : Flow - Phasic: Augmentation -Normal: Reflux - None. 3. Popliteal Vein: 3.1. Compressibility - Fully compressible: Thrombus - None : Flow - Phasic: Augmentation -Normal: Reflux - None. 4. Posterior Tibial Vein: 4.1. Compressibility - Fully compressible: Thrombus - None: Flow - Phasic: Augmentation -Normal: Reflux - None. 5. Peroneal Vein: 5.1. Compressibility - Fully compressible: Thrombus - None: Flow - Phasic: Augmentation -Normal: Reflux - None. 6. Great Saphenous Vein: 6.1. Compressibility - Fully compressible: Thrombus - None: Flow - Phasic: Augmentation - Normal: Reflux - None. LEFT: 1. Common Femoral Vein: 1.1. Compressibility - Fully compressible: Thrombus - None: Flow - Phasic: Augmentation -Normal: Reflux - None. 2. Femoral Vein: 2.1. Compressibility - Fully compressible: Thrombus - None: Flow - Phasic: Augmentation -Normal: Reflux - None. 3. Popliteal Vein: 3.1. Compressibility - Fully compressible: Thrombus - None : Flow - Phasic: Augmentation -Normal: Reflux - None. 4. Posterior Tibial Vein: 4.1. Compressibility - Fully compressible: Thrombus - None: Flow - Phasic: Augmentation -Normal: Reflux - None. 5. Peroneal Vein: 5.1. Compressibility - Fully compressible: Thrombus - None: Flow - Phasic: Augmentation -Normal: Reflux - None. 6. Great Saphenous Vein: 6.1. Compressibility - Fully compressible: Thrombus - None: Flow - Phasic: Augmentation - Normal: Reflux - None. OTHER FINDINGS: Right: None significant. Left: None significant. IMPRESSION: Right: No evidence of deep or superficial vein thrombosis of the right lower extremity. Normal valve function noted of the right side. Left: No evidence of deep or superficial vein thrombosis of the left lower extremity. Normal valve function noted of the left side.
[2017-08-12] MEDS: Enoxaparin 80 mg Syringe SC SCH ×2 (13:50→22:11)
[2017-08-12] MEDS: Tramadol 25 mg PO PRN (14:24)
[2017-08-12] MEDS ORDERED: Iodixanol 320 mg/ml 150 ml Bottle IV ONE (17:31)
--- NOTE | 2017-08-12 19:37 | CP.PCM.PN ---
Subjective - Date & Time of Evaluation Date of Evaluation: 08/12/17 Time of Evaluation: 07:30 - Subjective Subjective: Surgery: Dr. Lund Pt seen and examined. No acute events overnight. States she feels better than yesterday and just complaining of some pain in the right leg. Denies other complaints at this time. Objective - Vital Signs/Intake and Output Vital Signs (last 24 hours): Temp Pulse Resp BP Pulse Ox 98.0 F 60 20 111/60 99 08/12/17 16:52 08/12/17 16:52 08/12/17 16:52 08/12/17 16:52 08/12/17 16:52 Intake and Output: 08/12/17 08/13/17 18:59 06:59 Intake Total 220 Balance 220 - Medications Medications: Current Medications Enoxaparin Sodium (Lovenox) 65 mg SC Q12 [facility] Last Admin: 08/12/17 13:50 Dose: Not Given Famotidine (Pepcid) 20 mg PO DAILY [facility] Ferrous Sulfate (Feosol) 325 mg PO DAILY [facility] Last Admin: 08/12/17 09:12 Dose: 325 mg Sodium Chloride (Sodium Chloride 0.9%) 1,000 mls @ 150 mls/hr IV .Q6H40M [facility] Last Admin: 08/12/17 12:14 Dose: Not Given Metoprolol Succinate (Toprol Xl) 25 mg PO DAILY [facility] Last Admin: 08/12/17 09:12 Dose: 25 mg Tramadol HCl (Ultram) 25 mg PO TID PRN PRN Reason: Pain, severe (8-10) Last Admin: 08/12/17 14:24 Dose: 25 mg - Labs Labs: 08/12/17 06:34 08/12/17 06:34 PT 12.7 SECONDS (9.7-12.2) H 08/09/17 22:55 INR 1.1 08/09/17 22:55 APTT 31 SECONDS (21-34) 08/09/17 22:55 - Constitutional Appears: Well, No Acute Distress - Head Exam Head Exam: ATRAUMATIC, NORMOCEPHALIC - ENT Exam ENT Exam: Mucous Membranes Moist - Respiratory Exam Respiratory Exam: NORMAL BREATHING PATTERN - Cardiovascular Exam Cardiovascular Exam: RRR - GI/Abdominal Exam GI & Abdominal Exam: Soft. absent: Tenderness - Extremities Exam Additional comments: monopahsic signals in RLE, biophasic signals in LLE - Neurological Exam Neurological Exam: Alert, Awake - Skin Skin Exam: Dry, Warm Assessment and Plan - Assessment and Plan (Free Text) Assessment: 87F with PVD, currently on therapeutic lovenox for PE Plan: - f/u CTA of LE - will decide on operative intervention pending CTA results - d/w Dr. Ashely Vick, PGY-3 Surgery
--- NOTE | 2017-08-12 23:07 | CARD ---
APPROVED REPORT EXAM: Two-dimensional and M-mode echocardiogram with Doppler and color Doppler. Other Information Quality : GoodRhythm : INDICATION Atrial Fibrillation Cardiac Disease: CAD Congestive Heart Failure LEFT VENTRICLE The left ventricle is normal size. There is normal left ventricular wall thickness. Left ventricle systolic function is normal. The Ejection Fraction is 55-60%. There is normal LV segmental wall motion. RIGHT VENTRICLE The right ventricle is normal size. There is normal right ventricular wall thickness. The right ventricular systolic function is normal. ATRIA The left atrium is mildly dilated. The right atrium size is normal. The interatrial septum is intact with no evidence for an atrial septal defect. AORTIC VALVE The aortic valve is mildly thickened but opens well. There is mild aortic regurgitation. There is no aortic valvular stenosis. There is no aortic valvular vegetation. MITRAL VALVE The posterior mitral valve leaflet appears thickened, but open well. There is no evidence of mitral valve prolapse. There is no mitral valve stenosis. Mitral regurgitation is mild. TRICUSPID VALVE The tricuspid valve is normal in structure. There is mild to moderate tricuspid regurgitation. Right ventricular systolic pressure is estimated at 40-50 mmHg. There is mild-moderate pulmonary hypertension. PULMONIC VALVE The pulmonic valve is not well visualized. There is moderate pulmonic valvular regurgitation. GREAT VESSELS The aortic root is normal in size. PERICARDIAL EFFUSION There is no significant pericardial effusion. <Conclusion> Left ventricle systolic function is normal. The Ejection Fraction is 55-60%. There is mild aortic regurgitation. Mitral regurgitation is mild. There is mild to moderate tricuspid regurgitation. There is mild-moderate pulmonary hypertension. There is moderate pulmonic valvular regurgitation.
[2017-08-13 06:38] LABS: PHOSPHATIDYLSERINE AB IGG <10 U/mL (<10); PHOSPHATIDYLSERINE AB IGM <25 U/mL (<25)
[2017-08-13 07:41] LABS: BASO % 0.3 % (0.0-2.0); EOS # 0.1 K/uL (0.0-0.7); EOS % 0.7 % (0.0-4.0); HEMOGLOBIN 11.6 g/dL (11.0-16.0); LYMPH # 1.1 K/uL (1.0-4.3); LYMPH % 10.7 % (20.0-40.0); MEAN CELL VOLUME 75.9 fL (81.0-99.0); MEAN CORPUSCULAR HEMOGLOBIN 24.9 pg (27.0-31.0); MEAN CORPUSCULAR HGB CONC 32.8 g/dL (33.0-37.0); MEAN PLATELET VOLUME 10.1 fL (7.2-11.7); MONO # 0.9 K/uL (0.0-0.8); MONO % 8.6 % (0.0-10.0); NEUT # 8.3 K/uL (1.8-7.0); NEUT % 79.7 % (50.0-75.0); RBC 4.67 Mil/uL (3.80-5.20); RED CELL DISTRIBUTION WIDTH 17.6 % (11.5-14.5); WHITE BLOOD COUNT 10.4 K/uL (4.8-10.8)
[2017-08-13 07:45] LABS: B2 GLYCOPROTEIN I AB(IGA) >150 SAU (<=20); B2 GLYCOPROTEIN I AB(IGG) <9 SGU (<=20); B2 GLYCOPROTEIN I AB(IGM) 13 SMU (<=20)
--- NOTE | 2017-08-13 08:15 | CP.PCM.PN ---
<FordArlyn - Last Filed: 08/13/17 11:08> Subjective - Date & Time of Evaluation Date of Evaluation: 08/13/17 Time of Evaluation: 08:12 - Subjective Subjective: Patient seen and examined at bedside. Patient resting comfortably in bed with no new complaints at this. Patient still having right lower extremity pain. She denies chest pain, shortness of breath, palpitations, n/v/d/c. Objective - Vital Signs/Intake and Output Vital Signs (last 24 hours): Temp Pulse Resp BP Pulse Ox 98.3 F 71 18 163/90 H 95 08/13/17 07:25 08/13/17 07:25 08/13/17 07:25 08/13/17 07:25 08/13/17 07:25 - Medications Medications: Current Medications Enoxaparin Sodium (Lovenox) 65 mg SC Q12 [facility] Last Admin: 08/12/17 22:11 Dose: 65 mg Famotidine (Pepcid) 20 mg PO DAILY [facility] Ferrous Sulfate (Feosol) 325 mg PO DAILY [facility] Last Admin: 08/12/17 09:12 Dose: 325 mg Sodium Chloride (Sodium Chloride 0.9%) 1,000 mls @ 150 mls/hr IV .Q6H40M [facility] Last Admin: 08/12/17 22:11 Dose: 150 mls/hr Metoprolol Succinate (Toprol Xl) 25 mg PO DAILY [facility] Last Admin: 08/12/17 09:12 Dose: 25 mg Tramadol HCl (Ultram) 25 mg PO TID PRN PRN Reason: Pain, severe (8-10) Last Admin: 08/12/17 14:24 Dose: 25 mg - Labs Labs: 08/13/17 07:17 08/12/17 06:34 PT 12.7 SECONDS (9.7-12.2) H 08/09/17 22:55 INR 1.1 08/09/17 22:55 APTT 31 SECONDS (21-34) 08/09/17 22:55 - Additional Findings Additional findings: - Constitutional Appears: Non-toxic, No Acute Distress - Head Exam Head Exam: ATRAUMATIC, NORMAL INSPECTION, NORMOCEPHALIC - Eye Exam Eye Exam: EOMI, Normal appearance, PERRL - ENT Exam ENT Exam: Mucous Membranes Moist - Respiratory Exam Respiratory Exam: Clear to Ausculation Bilateral, NORMAL BREATHING PATTERN. absent: Accessory Muscle Use, Rales, Rhonchi, Wheezes, Respiratory Distress - Cardiovascular Exam Cardiovascular Exam: RRR, +S1, +S2. absent: Bradycardia, Tachycardia, Diastolic murmur, Gallop, Rubs, Murmur - GI/Abdominal Exam GI & Abdominal Exam: Soft, Normal Bowel Sounds. absent: Distended, Tenderness - Extremities Exam Extremities Exam: Calf Tenderness (right), Pedal Edema (b/l) Additional comments: Lower legs/feet feel cool to the touch - Neurological Exam Neurological Exam: Alert, Awake, Oriented x3 - Psychiatric Exam Psychiatric exam: Normal Affect, Normal Mood - Skin Skin Exam: Dry, Intact, Normal Color, Warm Assessment and Plan (1) Pulmonary emboli Status: Acute (2) Right calf pain Status: Acute (3) CHF (congestive heart failure) Status: Chronic (4) A-fib Status: Chronic (5) Hyperlipidemia Status: Chronic (6) Hypertension Status: Chronic (7) Iron deficiency anemia Status: Chronic (8) Ascending aortic aneurysm Status: Chronic (9) Prophylactic measure Status: Acute - Assessment and Plan (Free Text) Plan: Pulmonary emboli * Right calf pain and elevated D-dimer 4493 * No tachycardia, chest pain, SOB * Heme/Onc consulted - Dr. Ross- help appreciated * Patient was on Eliquis at home for AFib * Hypercoag studies * Homocysteine level 15.1 (H) * Glycoprotein Ab >150 (H) * GPI IgG Ab <9 * GPI IgM Ab 13 * Phophatidylserine IgG <10, IgA <20, IgM <25 * Protein S activity 96/antigen * Protein C activity 102/antigen * Factor V leiden pending * Antithrombin III 94 * Antiphospholipid pending * Anti cardiolipin Ab pending Imaging * CTA: Pulmonary emboli, pulmonary hypertension, heterogeneous thyroid, and ectasia of ascending thoracic aorta, 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 in diameter (see full report) * EKG: ventricular paced rhythm * CXR No focal consolidation or effusion Meds * Lovenox 65 mg SC BID - renally dosed * Held Home dose Eliquis 5mg PO BID ( patient was taking Eliquis 5mg PO daily; she stated that's how she was instructed to take it) Right calf pain * D-dimer 4493 * LE venous US (08/12) negative for DVT * Contraindication for SCDs Meds: * Lovenox 65 mg SC BID - renally dosed PVD * Vascular Consulted - Dr. Lund- help appreciated * F/U arterial dopplers * iliofemoral CTA with runoff: complete occlusion of right distal superficial femoral artery with distal reconstitution, complete occlusion of left popliteal artery with reconstitution just before the trifurcation * CT abdominal angiography: aortic calcification and ectasia; otherwise normal study except for LE findings as described above. Hyperkalemia - resolved * Calcium gluconate and kayexalate given 08/11 ALBIN - resolving * BUN/Cr: 13/0.9 * CPK: 92243 * LDH: 1061 * Can discontinue NS @ 150 cc/h * Hold all nephrotoxic agents and renally dose lovenox/pepcid for now CHF (congestive heart failure) * BNP 2300 * f/u echo * CXR No focal consolidation or effusion * Continue home meds * Toprol XL 25 mg daily * Resume Lasix 40 mg daily * Hold crestor due to transaminitis * Hold Losartan 50 mg daily due to ALBIN A-fib * Hold home Eliquis 5 mg PO BID * Has Pacemaker Hyperlipidemia * lipid panel WNL * hold statin due to transaminitis Hypertension * Continue home meds * Toprol XL 25 mg daily * Hold Losartan 50 mg daily due to ALBIN Iron deficiency anemia * H&H stable at this time * Continue home ferrous sulfate 325 mg daily Ascending aortic aneurysm * seen on prior admission * CTA 08/09/17: Pulmonary emboli, pulmonary hypertension, heterogeneous thyroid, and ectasia of ascending thoracic aorta, 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 in diameter (see full report) * Monitor Prophylactic measure * GI: pepcid * DVT: lovenox 90 mg SC BID <Jose David Madden - Last Filed: 08/13/17 15:11> Objective - Vital Signs/Intake and Output Vital Signs (last 24 hours): Temp Pulse Resp BP Pulse Ox 98.3 F 66 18 142/78 95 08/13/17 07:25 08/13/17 08:13 08/13/17 07:25 08/13/17 12:11 08/13/17 07:25 - Medications Medications: Current Medications Enoxaparin Sodium (Lovenox) 65 mg SC Q12 [facility] Last Admin: 08/13/17 09:14 Dose: 65 mg Famotidine (Pepcid) 20 mg PO DAILY [facility] Last Admin: 08/13/17 09:13 Dose: 20 mg Ferrous Sulfate (Feosol) 325 mg PO DAILY [facility] Last Admin: 08/13/17 09:13 Dose: 325 mg Furosemide (Lasix) 40 mg PO DAILY [facility] Last Admin: 08/13/17 12:11 Dose: 40 mg Metoprolol Succinate (Toprol Xl) 25 mg PO DAILY [facility] Last Admin: 08/13/17 09:13 Dose: 25 mg Tramadol HCl (Ultram) 25 mg PO TID PRN PRN Reason: Pain, severe (8-10) Last Admin: 08/13/17 09:12 Dose: 25 mg - Labs Labs: 08/13/17 07:17 08/13/17 07:17 PT 12.7 SECONDS (9.7-12.2) H 08/09/17 22:55 INR 1.1 08/09/17 22:55 APTT 31 SECONDS (21-34) 08/09/17 22:55 Attending/Attestation - Attestation I have personally seen and examined this patient.: Yes I have fully participated in the care of the patient.: Yes I have reviewed all pertinent clinical information, including history, physical exam and plan: Yes Notes (Text): 08/13/17 15:11 Medical attending: Patient was seen and examined by me with the director of medical staff services. Reviewed the above note by the resident and agree with the above. The patient was doing okay today. Yesterday she underwent a CT of the abdomen and pelvis with lower extremity contrast runoff. The right side showed there is an occlusion in the distal SFA going into the popliteal artery there is peripheral flow within the distal SFA and popliteal artery secondary to thrombus there. On the left side is an occlusion of the middle popliteal artery. The anterior tibial artery fills via collaterals and there is an occlusion in the mid segment. The peroneal and posterior tibial artery fills via collaterals and also remains patent. She is not short of breath today, she denied abdominal pain, denied chest pain. She remains on Lovenox that has now been decreased to 65 twice a day. Her creatinine did decrease this is with some fluids as well as holding her ARB and Lasix. Thank you very much, Jose David Madden
[2017-08-13 08:19] LABS: ALB/GLOB RATIO 0.8 (1.0-2.1); ALBUMIN 3.1 g/dL (3.5-5.0); ALT/SGPT 46 U/L (9-52); AST/SGOT 169 U/L (14-36); BLOOD UREA NITROGEN 13 mg/dL (7-17); CALCIUM 8.6 mg/dl (8.6-10.4); GFR AFRICAN-AMERICAN > 60; GFR NON-AFRICAN AMERICAN 59
[2017-08-13] MEDS: Tramadol 25 mg PO PRN (09:12)
[2017-08-13] MEDS: Metoprolol Succinate 25 mg XL Tab PO SCH (09:13)
[2017-08-13] MEDS: Enoxaparin 80 mg Syringe SC SCH ×2 (09:14→21:19)
[2017-08-13] MEDS ORDERED: Pneumococcal 23-Valent Vaccine IM ONE (10:00)
--- NOTE | 2017-08-13 10:36 | CT ---
PROCEDURE: CT Angiography Abdomen, Pelvis and Lower Extremity with Contrast HISTORY: eval for PVD COMPARISON: None. TECHNIQUE: Technique: CT angiography of the abdomen, pelvis and bilateral lower extremities performed in the arterial phase of enhancement. Coronal and sagittal reformats, and well as rotating MIP images of the vessels generated at the workstation. Intravenous contrast dose: 100 cubic centimeters Visipaque 320 Radiation dose: Total exam DLP = 2953.33 MGy-cm. This CT exam was performed using one or more of the following dose reduction techniques: Automated exposure control, adjustment of the mA and/or kV according to patient size, and/or use of iterative reconstruction technique. FINDINGS: CT ANGIOGRAPHY: ABDOMINAL AORTA:: MAJOR AORTIC BRANCHES: Celiac [place]: Unremarkable. Superior mesenteric artery: Unremarkable. Inferior mesenteric artery: Unremarkable. Renal arteries: Unremarkable. PELVIC ARTERIES: Right Common Iliac: Unremarkable. Right External Iliac: Unremarkable. Right Internal Iliac: Unremarkable. Left Common Iliac: Unremarkable. Left External Iliac: Unremarkable. Left Internal Iliac: Unremarkable. RIGHT LOWER EXTREMITY ARTERIES: Right Common Femoral: Unremarkable. Right Superficial Femoral: Occlusion of the mid SFA. Some flow was seen within the distal SFA and the popliteal artery. Right Profunda Femoris: Unremarkable. Right Popliteal:There is peripheral flow seen within the popliteal artery secondary to partially occlusive thrombus. Right Anterior Tibial: No flow is seen within the mid and distal anterior tibial artery. Right Tibioperoneal Trunk: Unremarkable. Right Posterior Tibial: Unremarkable. Right Peroneal: Unremarkable. Right dorsalis pedis : Unremarkable. LEFT LOWER EXTREMITY ARTERIES: Left Common Femoral: Unremarkable. Left Superficial Femoral: Unremarkable. Left Profunda Femoris: Unremarkable. Left Popliteal: Occlusion of the mid popliteal artery with no reconstitution. Left Anterior Tibial: Fills via collateral then occludes in the mid segment. Left Tibioperoneal Trunk: Occluded Left Posterior Tibial: Fills via collateral and remains patent. Left Peroneal: Fills via collateral and remains patent. Left Dorsalis pedis: Unremarkable. NON-ANGIOGRAPHIC ASPECT OF THE EXAM: LOWER THORAX: Unremarkable. LIVER: Unremarkable. No gross lesion or ductal dilatation. GALLBLADDER AND BILE DUCTS: Unremarkable. PANCREAS: Unremarkable. No gross lesion or ductal dilatation. SPLEEN: Unremarkable. ADRENALS: Unremarkable. No mass. KIDNEYS AND URETERS: Unremarkable. No hydronephrosis. No solid mass. STOMACH AND BOWEL: Unremarkable. No obstruction. No gross mural thickening. APPENDIX: Normal appendix. PERITONEUM: Unremarkable. No free fluid. No free air. LYMPH NODES: Unremarkable. No enlarged lymph nodes. BLADDER: Unremarkable. REPRODUCTIVE: Unremarkable. BONES: No acute fracture. OTHER FINDINGS: None. IMPRESSION: CT ANGIOGRAM ABDOMEN/ PELVIS: 1. Unremarkable CT angiogram of the abdomen pelvis. RIGHT LOWER EXTREMITY CT ANGIOGRAM: 1. Common femoral artery, profunda femoral artery are normal. 2. There is occlusion of the distal SFA extending into the popliteal artery. There is peripheral flow seen within the distal SFA and popliteal artery secondary to nonocclusive thrombus. 3.The anterior tibial artery occludes in the mid segment with no reconstitution. 4. Peroneal and posterior tibial artery are remarkable. LEFT LOWER EXTREMITY CT ANGIOGRAM: 1. The common femoral artery, profunda femoral artery and superficial femoral artery are normal 2. There is occlusion of the mid popliteal artery with no reconstitution 3. Anterior tibial artery fills via collateral and occludes in the mid segment. 4. The peroneal and posterior tibial artery fills via collateral and remains patent.
--- NOTE | 2017-08-13 15:59 | VASCLAB ---
STUDY DESCRIPTION: HISTORY: evaluate for PAD; left foot TP, PRIORS: None. TECHNIQUE: Pulse volume recording waveforms and segmental pressures of bilateral lower extremities at multiple levels were obtained. Ankle Brachial Indices (ABIs) were calculated. Report prepared by CHANTELL Cox, RVT RIGHT LOWER EXTREMITY: * Brachial artery: Pressure - 132 mmHg. * High thigh: Pressure - mmHg: Ratio - : PVR waveform - * Low thigh: Pressure - mmHg: Ratio - PVR waveform: None * Calf: Pressure - 88 mmHg: Ratio - 0.62 PVR waveform: Reduced * Posterior tibial Artery: Pressure - 60 mmHg: Ratio - 0.42 PVR waveform: Reduced * Dorsalis pedis Artery: Pressure - 64 mmHg: Ratio - 0.45 PVR waveform: Reduced * Great toe: Pressure - mmHg: Ratio - PVR waveform: Ankle brachial index (CATINA): 0.45 LEFT LOWER EXTREMITY: * Brachial artery: Pressure - 142 mmHg. * High thigh: Pressure - mmHg: Ratio - : PVR waveform - * Low thigh: Pressure - mmHg: Ratio - PVR waveform: Reduced * Calf: Pressure - 117 mmHg: Ratio - 0.82 PVR waveform: Reduced * Posterior tibial Artery: Pressure - 102 mmHg: Ratio - 0.72 PVR waveform: Reduced * Dorsalis pedis Artery: Pressure - 87 mmHg: Ratio - 0.61 PVR waveform: Reduced * Great toe: Pressure - mmHg: Ratio - PVR waveform: Ankle brachial index (CATINA): 0.72 OTHER FINDINGS: Right: Left: IMPRESSION: Right: This exam reveals severely decreased perfusion of the right lower extremity, noted at the iliac, superficial femoral, popliteal, tibial and distal small artery levels. Left: This exam reveals moderately decreased perfusion of the left lower extremity, noted at the superficial femoral, popliteal, tibial and distal small artery levels.
--- NOTE | 2017-08-13 16:23 | CP.PCM.PN ---
Subjective - Date & Time of Evaluation Date of Evaluation: 08/13/17 Time of Evaluation: 07:05 - Subjective Subjective: Surgery progress note. Dr. Lund Pt seen and examined at bedside. no acute events overnight. Still reports pain to the RLE. No new complaints. No N/V/D. tolerating diet. Objective - Vital Signs/Intake and Output Vital Signs (last 24 hours): Temp Pulse Resp BP Pulse Ox 98.3 F 62 20 128/65 96 08/13/17 16:15 08/13/17 16:15 08/13/17 16:15 08/13/17 16:15 08/13/17 16:15 - Medications Medications: Current Medications Enoxaparin Sodium (Lovenox) 65 mg SC Q12 [facility] Last Admin: 08/13/17 09:14 Dose: 65 mg Famotidine (Pepcid) 20 mg PO DAILY [facility] Last Admin: 08/13/17 09:13 Dose: 20 mg Ferrous Sulfate (Feosol) 325 mg PO DAILY [facility] Last Admin: 08/13/17 09:13 Dose: 325 mg Furosemide (Lasix) 40 mg PO DAILY [facility] Last Admin: 08/13/17 12:11 Dose: 40 mg Metoprolol Succinate (Toprol Xl) 25 mg PO DAILY [facility] Last Admin: 08/13/17 09:13 Dose: 25 mg Tramadol HCl (Ultram) 25 mg PO TID PRN PRN Reason: Pain, severe (8-10) Last Admin: 08/13/17 09:12 Dose: 25 mg - Labs Labs: 08/13/17 07:17 08/13/17 07:17 PT 12.7 SECONDS (9.7-12.2) H 08/09/17 22:55 INR 1.1 08/09/17 22:55 APTT 31 SECONDS (21-34) 08/09/17 22:55 - Constitutional Appears: Non-toxic, No Acute Distress - Head Exam Head Exam: ATRAUMATIC, NORMAL INSPECTION, NORMOCEPHALIC - Eye Exam Eye Exam: EOMI - ENT Exam ENT Exam: Mucous Membranes Moist - Respiratory Exam Respiratory Exam: NORMAL BREATHING PATTERN. absent: Accessory Muscle Use, Respiratory Distress - GI/Abdominal Exam GI & Abdominal Exam: Soft. absent: Distended, Guarding, Rigid, Tenderness - Extremities Exam Additional comments: bilateral warm lower extremities. Mild tenderness to palpation Right lower extremity - Neurological Exam Neurological Exam: Alert, Awake, Oriented x3 - Skin Skin Exam: Dry, Intact, Normal Color, Warm Assessment and Plan - Assessment and Plan (Free Text) Assessment: 87yo F with PVD, currently on therapeutic lovenox for PE - CTA noted Plan: - No vascular surgery intervention at this time - We will monitor peripherally - Please contact us if the patient's clinical status acutely worsens Further recs as per Dr. Ashely Sky PGY1 surgery pager: [phone]
[2017-08-13 22:06] LABS: CARDIOLIPIN AB (IGA) <11 APL (<=11); CARDIOLIPIN AB (IGG) <14 GPL (<=14); CARDIOLIPIN AB (IGM) <12 MPL (<=12); PHOSPHATIDYLSERINE AB IGA <20 U/mL (<20)
[2017-08-14 07:51] LABS: RED CELL DISTRIBUTION WIDTH 17.4 % (11.5-14.5)
[2017-08-14 07:52] LABS: ALB/GLOB RATIO 0.9 (1.0-2.1); ALBUMIN 3.1 g/dL (3.5-5.0); ALT/SGPT 44 U/L (9-52); AST/SGOT 141 U/L (14-36); BLOOD UREA NITROGEN 13 mg/dL (7-17); CALCIUM 8.3 mg/dl (8.6-10.4); GFR AFRICAN-AMERICAN > 60; GFR NON-AFRICAN AMERICAN > 60
[2017-08-14 08:04] LABS: BASO # 0.1 K/uL (0.0-0.2); BASO % 0.6 % (0.0-2.0); EOS % 0.5 % (0.0-4.0); HEMOGLOBIN 11.5 g/dL (11.0-16.0); LYMPH # 1.2 K/uL (1.0-4.3); LYMPH % 12.8 % (20.0-40.0); MEAN CELL VOLUME 74.7 fL (81.0-99.0); MEAN CORPUSCULAR HEMOGLOBIN 24.6 pg (27.0-31.0); MEAN CORPUSCULAR HGB CONC 32.9 g/dL (33.0-37.0); MEAN PLATELET VOLUME 9.8 fL (7.2-11.7); MONO % 10.5 % (0.0-10.0); NEUT # 7.2 K/uL (1.8-7.0); NEUT % 75.6 % (50.0-75.0); RBC 4.7 Mil/uL (3.80-5.20); WHITE BLOOD COUNT 9.6 K/uL (4.8-10.8)
[2017-08-14] MEDS: Tramadol 25 mg PO PRN (09:00)
[2017-08-14] MEDS: Metoprolol Succinate 25 mg XL Tab PO SCH (09:02)
[2017-08-14] MEDS: Enoxaparin 80 mg Syringe SC SCH (09:03)
[2017-08-14] MEDS ORDERED: Influenza Vaccine 60 mcg/0.5 mL SYR (4YR UP) IM ONE (10:00)
[2017-08-14] MEDS ORDERED: Potassium Chloride 20 mEq ER Tab PO ONE (10:22)
[2017-08-14] MEDS ORDERED: Oxycodone/Acetaminophen 5/325 mg Tab PO PRN (10:50)
--- NOTE | 2017-08-14 11:47 | CP.PCM.PN ---
<FordArlyn - Last Filed: 08/14/17 11:34> Subjective - Date & Time of Evaluation Date of Evaluation: 08/14/17 Time of Evaluation: 07:40 - Subjective Subjective: Patient seen and examined at bedside. She is still having right lower extremity pain up to her knee, but denies any swelling to the leg. She also complains of epigastric pain and cannot remember the last time she had a bowel movement. Patient reports she is eating okay and tolerating her diet. She denies fever, headache, chest pain, shortness of breath, and n/v. Objective - Vital Signs/Intake and Output Vital Signs (last 24 hours): Temp Pulse Resp BP Pulse Ox 98.1 F 70 18 143/82 95 08/14/17 07:15 08/14/17 08:28 08/14/17 07:15 08/14/17 09:03 08/14/17 07:15 - Medications Medications: Current Medications Apixaban (Eliquis) 5 mg PO BID [facility] Docusate Sodium (Colace) 100 mg PO BID [facility] Famotidine (Pepcid) 20 mg PO DAILY [facility] Last Admin: 08/14/17 09:03 Dose: 20 mg Ferrous Sulfate (Feosol) 325 mg PO DAILY [facility] Last Admin: 08/14/17 09:02 Dose: 325 mg Furosemide (Lasix) 40 mg PO DAILY [facility] Last Admin: 08/14/17 09:03 Dose: 40 mg Metoprolol Succinate (Toprol Xl) 25 mg PO DAILY [facility] Last Admin: 08/14/17 09:02 Dose: 25 mg Oxycodone/Acetaminophen (Percocet 5/325 Mg Tab) 1 tab PO Q6H PRN PRN Reason: Pain, severe (8-10) Stop: 08/17/17 10:51 Last Admin: 08/14/17 11:08 Dose: 1 tab Tramadol HCl (Ultram) 25 mg PO TID PRN PRN Reason: Pain, severe (8-10) Last Admin: 08/14/17 09:00 Dose: 25 mg - Labs Labs: 08/14/17 07:27 08/14/17 07:27 PT 12.7 SECONDS (9.7-12.2) H 08/09/17 22:55 INR 1.1 08/09/17 22:55 APTT 31 SECONDS (21-34) 08/09/17 22:55 - Additional Findings Additional findings: - Constitutional Appears: Non-toxic, No Acute Distress - Head Exam Head Exam: ATRAUMATIC, NORMAL INSPECTION, NORMOCEPHALIC - Eye Exam Eye Exam: EOMI, Normal appearance, PERRL - ENT Exam ENT Exam: Mucous Membranes Moist - Respiratory Exam Respiratory Exam: Clear to Ausculation Bilateral, NORMAL BREATHING PATTERN. absent: Accessory Muscle Use, Rales, Rhonchi, Wheezes, Respiratory Distress - Cardiovascular Exam Cardiovascular Exam: RRR, +S1, +S2. absent: Bradycardia, Tachycardia, Diastolic murmur, Gallop, Rubs, Murmur - GI/Abdominal Exam GI & Abdominal Exam: Soft, Normal Bowel Sounds. absent: Distended, Tenderness - Extremities Exam Extremities Exam: Calf Tenderness (right), Pedal Edema (b/l) Additional comments: Lower legs/feet feel cool to the touch - Neurological Exam Neurological Exam: Alert, Awake, Oriented x3 - Psychiatric Exam Psychiatric exam: Normal Affect, Normal Mood - Skin Skin Exam: Dry, Intact, Normal Color, Warm Assessment and Plan (1) Pulmonary emboli Status: Acute (2) Right calf pain Status: Acute (3) CHF (congestive heart failure) Status: Chronic (4) A-fib Status: Chronic (5) Hyperlipidemia Status: Chronic (6) Hypertension Status: Chronic (7) Iron deficiency anemia Status: Chronic (8) Ascending aortic aneurysm Status: Chronic (9) Prophylactic measure Status: Acute - Assessment and Plan (Free Text) Plan: Disposition: Patient will likely be discharged tomorrow pending PT recommendations. Patient lives at home with her daughter so she has help at home. Patient's family updated today (granddaughter, Leandra) and told that patient will need to take Eliquis BID. Pulmonary emboli * Right calf pain and elevated D-dimer 4493 * No tachycardia, chest pain, SOB * Heme/Onc consulted - Dr. 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 Lund- help appreciated * No plans for surgical intervention at this time Imaging * Arterial dopplers: Right showed severely decreased perfusion and left showed moderately decreased perfusion * iliofemoral CTA with runoff: complete occlusion of right distal superficial femoral artery with distal reconstitution, complete occlusion of left popliteal artery with reconstitution just before the trifurcation * CT abdominal angiography: aortic calcification and ectasia; otherwise normal study except for LE findings as described above. Hyperkalemia - resolved * Calcium gluconate and kayexalate given 08/11 ALBIN - resolving * BUN/Cr: 13/0.9 * CPK: 23668 * LDH: 1061 * Can discontinue NS @ 150 cc/h * Hold all nephrotoxic agents and renally dose necessary meds CHF (congestive heart failure) * BNP 2300 * f/u echo * CXR No focal consolidation or effusion * Continue home meds * Toprol XL 25 mg daily * Resume Lasix 40 mg daily * Hold crestor due to transaminitis * Hold Losartan 50 mg daily due to ALBIN A-fib * Eliquis 5 mg PO BID * Has Pacemaker Hyperlipidemia * lipid panel WNL * hold statin due to transaminitis Hypertension * Continue home meds * Toprol XL 25 mg daily * Hold Losartan 50 mg daily due to ALBIN Iron deficiency anemia * H&H stable at this time * Continue home ferrous sulfate 325 mg daily Ascending aortic aneurysm * seen on prior admission * CTA 08/09/17: Pulmonary emboli, pulmonary hypertension, heterogeneous thyroid, and ectasia of ascending thoracic aorta, 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 in diameter (see full report) * Monitor Prophylactic measure * GI: pepcid <Jose David Madden H - Last Filed: 08/14/17 15:10> Objective - Vital Signs/Intake and Output Vital Signs (last 24 hours): Temp Pulse Resp BP Pulse Ox 98.1 F 70 18 143/82 95 08/14/17 07:15 08/14/17 12:00 08/14/17 07:15 08/14/17 09:03 08/14/17 07:15 - Medications Medications: Current Medications Apixaban (Eliquis) 5 mg PO BID [facility] Docusate Sodium (Colace) 100 mg PO BID [facility] Famotidine (Pepcid) 20 mg PO DAILY [facility] Last Admin: 08/14/17 09:03 Dose: 20 mg Ferrous Sulfate (Feosol) 325 mg PO DAILY [facility] Last Admin: 08/14/17 09:02 Dose: 325 mg Furosemide (Lasix) 40 mg PO DAILY [facility] Last Admin: 08/14/17 09:03 Dose: 40 mg Metoprolol Succinate (Toprol Xl) 25 mg PO DAILY [facility] Last Admin: 08/14/17 09:02 Dose: 25 mg Oxycodone/Acetaminophen (Percocet 5/325 Mg Tab) 1 tab PO Q6H PRN PRN Reason: Pain, severe (8-10) Stop: 08/17/17 10:51 Last Admin: 08/14/17 11:08 Dose: 1 tab Tramadol HCl (Ultram) 25 mg PO TID PRN PRN Reason: Pain, severe (8-10) Last Admin: 08/14/17 09:00 Dose: 25 mg - Labs Labs: 08/14/17 07:27 08/14/17 07:27 PT 12.7 SECONDS (9.7-12.2) H 08/09/17 22:55 INR 1.1 08/09/17 22:55 APTT 31 SECONDS (21-34) 08/09/17 22:55
--- NOTE | 2017-08-14 18:13 | CARD ---
APPROVED REPORT EKG Measurement Heart [id number] <Conclusion> Ventricular-paced rhythm Abnormal ECG
[2017-08-15 07:48] LABS: BASO % 0.5 % (0.0-2.0); EOS # 0.1 K/uL (0.0-0.7); EOS % 1.5 % (0.0-4.0); HEMOGLOBIN 11.9 g/dL (11.0-16.0); LYMPH # 1.2 K/uL (1.0-4.3); LYMPH % 13.9 % (20.0-40.0); MEAN CELL VOLUME 74.8 fL (81.0-99.0); MEAN CORPUSCULAR HEMOGLOBIN 24.9 pg (27.0-31.0); MEAN CORPUSCULAR HGB CONC 33.3 g/dL (33.0-37.0); MEAN PLATELET VOLUME 9.8 fL (7.2-11.7); MONO # 1.1 K/uL (0.0-0.8); MONO % 12.2 % (0.0-10.0); NEUT # 6.2 K/uL (1.8-7.0); NEUT % 71.9 % (50.0-75.0); RBC 4.8 Mil/uL (3.80-5.20); RED CELL DISTRIBUTION WIDTH 17.5 % (11.5-14.5); WHITE BLOOD COUNT 8.6 K/uL (4.8-10.8)
[2017-08-15 08:15] LABS: ALBUMIN 3.2 g/dL (3.5-5.0); BLOOD UREA NITROGEN 13 mg/dL (7-17); CALCIUM 8.7 mg/dl (8.6-10.4); GFR AFRICAN-AMERICAN > 60; GFR NON-AFRICAN AMERICAN 52
[2017-08-15 08:16] LABS: ALB/GLOB RATIO 0.8 (1.0-2.1); ALT/SGPT 52 U/L (9-52); AST/SGOT 129 U/L (14-36)
[2017-08-15 08:41] VITALS: TEMP 98
[2017-08-15] MEDS: Metoprolol Succinate 25 mg XL Tab PO SCH (09:48)
[2017-08-15] MEDS ORDERED: Potassium Chloride 20 mEq ER Tab PO ONE (09:52)
[2017-08-15 16:04] VITALS: BP 148/87; PULSE 66; RESP 20; O2SAT 98
--- NOTE | 2017-08-15 16:04 | CP.PCM.DIS ---
<Arlyn Youngblood - Last Filed: 08/15/17 16:01> Provider - Provider Date of Admission: 08/09/17 23:26 Attending physician: Rachid Bedoya MD Consults: Dr. Ashely Ross Time Spent in preparation of Discharge (in minutes): 35 Diagnosis - Discharge Diagnosis (1) Pulmonary emboli Status: Acute (2) Right calf pain Status: Acute (3) CHF (congestive heart failure) Status: Chronic (4) A-fib Status: Chronic (5) Hyperlipidemia Status: Chronic (6) Hypertension Status: Chronic (7) Iron deficiency anemia Status: Chronic (8) Ascending aortic aneurysm Status: Chronic (9) Prophylactic measure Status: Acute Hospital Course - Lab Results Lab Results: Micro Results 08/12/17 13:23 Naris MRSA Culture - Final MRSA NOT DETECTED 08/10/17 Unknown Naris MRSA Culture (Admit) - Final MRSA NOT DETECTED Most Recent Lab Values WBC 8.6 K/uL (4.8-10.8) 08/15/17 07:35 RBC 4.80 Mil/uL (3.80-5.20) 08/15/17 07:35 Hgb 11.9 g/dL (11.0-16.0) 08/15/17 07:35 Hct 35.9 % (34.0-47.0) 08/15/17 07:35 MCV 74.8 fL (81.0-99.0) L 08/15/17 07:35 MCH 24.9 pg (27.0-31.0) L 08/15/17 07:35 MCHC 33.3 g/dL (33.0-37.0) 08/15/17 07:35 RDW 17.5 % (11.5-14.5) H 08/15/17 07:35 Plt Count 279 K/uL (130-400) 08/15/17 07:35 MPV 9.8 fL (7.2-11.7) 08/15/17 07:35 Neut % (Auto) 71.9 % (50.0-75.0) 08/15/17 07:35 Lymph % (Auto) 13.9 % (20.0-40.0) L 08/15/17 07:35 Bond % (Auto) 12.2 % (0.0-10.0) H 08/15/17 07:35 Eos % (Auto) 1.5 % (0.0-4.0) 08/15/17 07:35 Baso % (Auto) 0.5 % (0.0-2.0) 08/15/17 07:35 Neut # (Auto) 6.2 K/uL (1.8-7.0) 08/15/17 07:35 Lymph # (Auto) 1.2 K/uL (1.0-4.3) 08/15/17 07:35 Bond # (Auto) 1.1 K/uL (0.0-0.8) H 08/15/17 07:35 Eos # (Auto) 0.1 K/uL (0.0-0.7) 08/15/17 07:35 Baso # (Auto) 0.0 K/uL (0.0-0.2) 08/15/17 07:35 Neutrophils % (Manual) 92 % (50-75) H 08/09/17 22:15 Lymphocytes % (Manual) 3 % (20-40) L 08/09/17 22:15 Monocytes % (Manual) 5 % (0-10) 08/09/17 22:15 Platelet Estimate Normal (NORMAL) 08/09/17 22:15 Large Platelets Present 08/09/17 22:15 Hypochromasia (manual) Slight 08/09/17 22:15 Poikilocytosis (manual Slight 08/09/17 22:15 Anisocytosis (manual) Slight 08/09/17 22:15 Microcytosis (manual) Slight 08/09/17 22:15 Ovalocytes Slight 08/09/17 22:15 PT 12.7 SECONDS (9.7-12.2) H 08/09/17 22:55 INR 1.1 08/09/17 22:55 APTT 31 SECONDS (21-34) 08/09/17 22:55 D-Dimer, Quantitative 4493 ng/mlDDU (0-243) H 08/09/17 22:55 Protein C Antigen 95 % (70-140) 08/10/17 09:43 Protein C Activity 102 % (70-180) 08/10/17 09:43 Protein S Activity 96 % (60-140) 08/10/17 09:43 Protein S Antigen 125 % (70-140) 08/10/17 09:43 Antithrombin III Activ 94 % activity (80-120) 08/10/17 09:43 Factor V see note 08/10/17 09:43 Sodium 141 mmol/L (132-148) 08/15/17 07:35 Potassium 3.4 mmol/L (3.6-5.2) L 08/15/17 07:35 Chloride 99 mmol/L (98-107) 08/15/17 07:35 Carbon Dioxide 32 mmol/L (22-30) H 08/15/17 07:35 Anion Gap 14 (10-20) 08/15/17 07:35 BUN 13 mg/dL (7-17) 08/15/17 07:35 Creatinine 1.0 mg/dL (0.7-1.2) 08/15/17 07:35 Est GFR ( Amer) > 60 08/15/17 07:35 Est GFR (Non-Af Amer) 52 08/15/17 07:35 Random Glucose 93 mg/dL (65-105) 08/15/17 07:35 Calcium 8.7 mg/dl (8.6-10.4) 08/15/17 07:35 Phosphorus 2.7 mg/dL (2.5-4.5) 08/13/17 19:50 Magnesium 1.8 mg/dL (1.6-2.3) 08/15/17 07:35 Total Bilirubin 0.6 mg/dL (0.2-1.3) 08/15/17 07:35 AST 129 U/L (14-36) H 08/15/17 07:35 ALT 52 U/L (9-52) 08/15/17 07:35 Alkaline Phosphatase 76 U/L (38-126) 08/15/17 07:35 Lactate Dehydrogenase 1061 U/L (313-618) H 08/11/17 16:09 Total Creatine Kinase 26767 U/L (30-135) H 08/11/17 16:09 NT-Pro-B Natriuret Pep 2300 pg/mL (0-900) H 08/09/17 23:02 Total Protein 7.1 g/dL (6.3-8.3) 08/15/17 07:35 Albumin 3.2 g/dL (3.5-5.0) L 08/15/17 07:35 Globulin 3.9 gm/dL (2.2-3.9) 08/15/17 07:35 Albumin/Globulin Ratio 0.8 (1.0-2.1) L 08/15/17 07:35 Triglycerides 85 mg/dL (0-149) 08/10/17 04:59 Cholesterol 172 mg/dL (0-199) 08/10/17 04:59 LDL Cholesterol Direct 108 mg/dL (0-129) 08/10/17 04:59 HDL Cholesterol 33 mg/dL (30-70) 08/10/17 04:59 Homocysteine 15.1 umol/L (4.7-12.6) H 08/10/17 09:43 Urine Color Yellow (YELLOW) 08/10/17 01:20 Urine Clarity Clear (Clear) 08/10/17 01:20 Urine pH 5.0 (5.0-8.0) 08/10/17 01:20 Ur Specific Metter 1.013 (1.003-1.030) 08/10/17 01:20 Urine Protein 1+ mg/dL (NEGATIVE) H 08/10/17 01:20 Urine Glucose (UA) Normal mg/dL (Normal) 08/10/17 01:20 Urine Ketones Negative mg/dL (NEGATIVE) 08/10/17 01:20 Urine Blood Negative (NEGATIVE) 08/10/17 01:20 Urine Nitrate Negative (NEGATIVE) 08/10/17 01:20 Urine Bilirubin Negative (NEGATIVE) 08/10/17 01:20 Urine Urobilinogen Normal mg/dL (0.2-1.0) 08/10/17 01:20 Ur Leukocyte Esterase Neg Ronan/uL (Negative) 08/10/17 01:20 Urine WBC (Auto) 2 /hpf (0-5) 08/10/17 01:20 Urine RBC (Auto) < 1 /hpf (0-3) 08/10/17 01:20 Ur Squamous Epith Cells 1 /hpf (0-5) 08/10/17 01:20 [id number]-2-[id number] Ab >150 CLAYTON (<=20) H 08/10/17 09:43 Beta-2 GPI IgG Ab <9 SGU (<=20) 08/10/17 09:43 Beta-2 GPI IgM Ab 13 SMU (<=20) 08/10/17 09:43 Phosphatidylserine IgG <10 U/mL (<10) 08/10/17 09:43 Phosphatidylserine IgA <20 U/mL (<20) 08/10/17 09:43 Phosphatidylserine IgM <25 U/mL (<25) 08/10/17 09:43 Anti-Phospholipid Intrp see note 08/10/17 09:43 Anti-Cardiolipin IgG Ab <14 GPL (<=14) 08/10/17 09:43 Anti-Cardiolipin IgA Ab <11 APL (<=11) 08/10/17 09:43 Anti-Cardiolipin IgM Ab <12 MPL (<=12) 08/10/17 09:43 - Hospital Course Hospital Course: Upon admission: Patient is an 87 year old Trinidadian speaking female with a PMH of CAD, CHF, pacemaker, HTN, iron deficiency anemia, HLD, gastritis, aortic aneurysm, and thyroid nodule who presents to the ED complaining of right calf pain of 1 day duration. Patient describes it as sharp/crampy and 10/10. Patient tried 200 mg Motrin without relief. Patient denies having similar symptoms in the past. She says the pain has not changed in quality or quantity since it started. Of note, Patient's family member at bedside says the patient does not walk much at home and lives a very sedintary lifestyle, only walking when necessary. Patient admits to dry cough and chronic constipation but otherwise denies fever, chills , headache, dizziness, changes in vision/hearing, chest pain, SOB, palpitations , abdominal pain, nausea, vomiting, diarrhea, blood in stool, changes in urinary habits, and recent travel. Hospital Course: Patient was admitted for right calf pain with diagnosis of pulmonary embolism and DVT. Upon ED arrival, her labs showed elevated WBC of 12.9, elevated D- dimer of 4493, and elevated pro-BNP of 2300. CTA of chest showed pulmonary emboli, pulmonary hypertension, heterogeneous thyroid, and ectasia of ascending thoracic aorta, up to 4.0cm in diameter. Dr. Lund was consulted for PVD. The following imaging was done: Iliofemoral CTA showed complete occlusion of right distal superficial femoral artery with distal reconstitution and complete occlusion of left popliteal artery w/ reconstitution just before the trifurcation Venous Doppler of the lower extremities showed no evidence of deep superficial vein thrombosis and normal valve function of bilateral lower extremities Lower extremity U/S showed right severely decreased perfusion, noted at the iliac, superficial femoral, popliteal, tibial, and distal small artery levels, and left moderately decreased perfusion, noted at the superficial femoral, popliteal, tibial, and distal small artery levels CTA of abdomen showed aortic calcification and ectasia, and otherwise normal study except for LE findings. Dr. Lund deemed no surgical intervention necessary at this time and cleared her on vascular surgery point of view. Patients home dose Eliquis was held, and she was started on Lovenox 90mg SC BID. Then, she was switched to renally dosed Lovenox 65mg SC BID. On the last day of hospital course, the Lovenox was discontinued, and she was continued on Eliquis 5mg PO BID. Upon discharge: Patient stable for discharge per Dr. Madden. Patient was discharged on Eliquis 5mg PO BID. Please note that this is a summary of events. For more details, please see complete medical record. Discharge Exam - Head Exam Head Exam: ATRAUMATIC, NORMAL INSPECTION, NORMOCEPHALIC - Eye Exam Eye Exam: EOMI, Normal appearance, PERRL - Respiratory Exam Respiratory Exam: Clear to PA & Lateral, NORMAL BREATHING PATTERN, UNREMARKABLE. absent: Accessory Muscle Use, Respiratory Distress - Cardiovascular Exam Cardiovascular Exam: RRR, +S1, +S2 - GI/Abdominal Exam GI & Abdominal Exam: Normal Bowel Sounds, Unremarkable - Extremities Exam Extremities exam: calf tenderness (mild right ) - Neurological Exam Neurological exam: Alert, Oriented x3 - Psychiatric Exam Psychiatric exam: Normal Affect, Normal Mood - Skin Skin Exam: Dry, Intact, Normal Color, Warm Discharge Plan - Discharge Medications Prescriptions: Apixaban [Eliquis] 5 mg PO BID #60 tab Docusate [Colace] 100 mg PO BID #60 cap Furosemide [Lasix] 40 mg PO DAILY #30 tab Metoprolol Succinate [Toprol XL] 25 mg PO DAILY #30 tab oxyCODONE/Acetaminophen [Percocet 5/325 mg Tab] 1 tab PO Q4 PRN #24 tab PRN Reason: Pain, Severe (8-10) - Follow Up Plan Condition: GUARDED Disposition: HOME/ ROUTINE Instructions: Pulmonary Embolism (Blood Clot in the Lungs), Atrial Fibrillation , High Blood Pressure in Adults, Heart Failure, Adult (DC), Apixaban, Docusate, Metoprolol, Oxycodone and Acetaminophen Additional Instructions: Please follow up at the [facility] at [facility] in 1 week. Please take the following medications upon discharge: Eliquis 5 mg twice daily Lasix 40 mg daily Metoprolol succinate 25 mg daily Ferrous Sulfate 325 mg daily Losartan 50 mg daily Oxycodone 1 tab every 4 hours as needed for pain Colace 100 mg twice daily Please return to the ED if you experience new or worsening symptoms. Referrals: [facility] at [facility] [Outside] Clinical Quality Measures - CQM - VTE Is patient being discharged on overlap therapy?: No If no, please select a reason why:: Use of Anticoagulants <Jose David Madden - Last Filed: 08/15/17 16:47> Provider - Provider Date of Admission: 08/09/17 23:26 Attending physician: Rachid Bedoya MD Hospital Course - Lab Results Lab Results: Micro Results 08/12/17 13:23 Naris MRSA Culture - Final MRSA NOT DETECTED 08/10/17 Unknown Naris MRSA Culture (Admit) - Final MRSA NOT DETECTED Most Recent Lab Values WBC 8.6 K/uL (4.8-10.8) 08/15/17 07:35 RBC 4.80 Mil/uL (3.80-5.20) 08/15/17 07:35 Hgb 11.9 g/dL (11.0-16.0) 08/15/17 07:35 Hct 35.9 % (34.0-47.0) 08/15/17 07:35 MCV 74.8 fL (81.0-99.0) L 08/15/17 07:35 MCH 24.9 pg (27.0-31.0) L 08/15/17 07:35 MCHC 33.3 g/dL (33.0-37.0) 08/15/17 07:35 RDW 17.5 % (11.5-14.5) H 08/15/17 07:35 Plt Count 279 K/uL (130-400) 08/15/17 07:35 MPV 9.8 fL (7.2-11.7) 08/15/17 07:35 Neut % (Auto) 71.9 % (50.0-75.0) 08/15/17 07:35 Lymph % (Auto) 13.9 % (20.0-40.0) L 08/15/17 07:35 Bond % (Auto) 12.2 % (0.0-10.0) H 08/15/17 07:35 Eos % (Auto) 1.5 % (0.0-4.0) 08/15/17 07:35 Baso % (Auto) 0.5 % (0.0-2.0) 08/15/17 07:35 Neut # (Auto) 6.2 K/uL (1.8-7.0) 08/15/17 07:35 Lymph # (Auto) 1.2 K/uL (1.0-4.3) 08/15/17 07:35 Bond # (Auto) 1.1 K/uL (0.0-0.8) H 08/15/17 07:35 Eos # (Auto) 0.1 K/uL (0.0-0.7) 08/15/17 07:35 Baso # (Auto) 0.0 K/uL (0.0-0.2) 08/15/17 07:35 Neutrophils % (Manual) 92 % (50-75) H 08/09/17 22:15 Lymphocytes % (Manual) 3 % (20-40) L 08/09/17 22:15 Monocytes % (Manual) 5 % (0-10) 08/09/17 22:15 Platelet Estimate Normal (NORMAL) 08/09/17 22:15 Large Platelets Present 08/09/17 22:15 Hypochromasia (manual) Slight 08/09/17 22:15 Poikilocytosis (manual Slight 08/09/17 22:15 Anisocytosis (manual) Slight 08/09/17 22:15 Microcytosis (manual) Slight 08/09/17 22:15 Ovalocytes Slight 08/09/17 22:15 PT 12.7 SECONDS (9.7-12.2) H 08/09/17 22:55 INR 1.1 08/09/17 22:55 APTT 31 SECONDS (21-34) 08/09/17 22:55 D-Dimer, Quantitative 4493 ng/mlDDU (0-243) H 08/09/17 22:55 Protein C Antigen 95 % (70-140) 08/10/17 09:43 Protein C Activity 102 % (70-180) 08/10/17 09:43 Protein S Activity 96 % (60-140) 08/10/17 09:43 Protein S Antigen 125 % (70-140) 08/10/17 09:43 Antithrombin III Activ 94 % activity (80-120) 08/10/17 09:43 Factor V see note 08/10/17 09:43 Sodium 141 mmol/L (132-148) 08/15/17 07:35 Potassium 3.4 mmol/L (3.6-5.2) L 08/15/17 07:35 Chloride 99 mmol/L (98-107) 08/15/17 07:35 Carbon Dioxide 32 mmol/L (22-30) H 08/15/17 07:35 Anion Gap 14 (10-20) 08/15/17 07:35 BUN 13 mg/dL (7-17) 08/15/17 07:35 Creatinine 1.0 mg/dL (0.7-1.2) 08/15/17 07:35 Est GFR ( Amer) > 60 08/15/17 07:35 Est GFR (Non-Af Amer) 52 08/15/17 07:35 Random Glucose 93 mg/dL (65-105) 08/15/17 07:35 Calcium 8.7 mg/dl (8.6-10.4) 08/15/17 07:35 Phosphorus 2.7 mg/dL (2.5-4.5) 08/13/17 19:50 Magnesium 1.8 mg/dL (1.6-2.3) 08/15/17 07:35 Total Bilirubin 0.6 mg/dL (0.2-1.3) 08/15/17 07:35 AST 129 U/L (14-36) H 08/15/17 07:35 ALT 52 U/L (9-52) 08/15/17 07:35 Alkaline Phosphatase 76 U/L (38-126) 08/15/17 07:35 Lactate Dehydrogenase 1061 U/L (313-618) H 08/11/17 16:09 Total Creatine Kinase 93365 U/L (30-135) H 08/11/17 16:09 NT-Pro-B Natriuret Pep 2300 pg/mL (0-900) H 08/09/17 23:02 Total Protein 7.1 g/dL (6.3-8.3) 08/15/17 07:35 Albumin 3.2 g/dL (3.5-5.0) L 08/15/17 07:35 Globulin 3.9 gm/dL (2.2-3.9) 08/15/17 07:35 Albumin/Globulin Ratio 0.8 (1.0-2.1) L 08/15/17 07:35 Triglycerides 85 mg/dL (0-149) 08/10/17 04:59 Cholesterol 172 mg/dL (0-199) 08/10/17 04:59 LDL Cholesterol Direct 108 mg/dL (0-129) 08/10/17 04:59 HDL Cholesterol 33 mg/dL (30-70) 08/10/17 04:59 Homocysteine 15.1 umol/L (4.7-12.6) H 08/10/17 09:43 Urine Color Yellow (YELLOW) 08/10/17 01:20 Urine Clarity Clear (Clear) 08/10/17 01:20 Urine pH 5.0 (5.0-8.0) 08/10/17 01:20 Ur Specific Metter 1.013 (1.003-1.030) 08/10/17 01:20 Urine Protein 1+ mg/dL (NEGATIVE) H 08/10/17 01:20 Urine Glucose (UA) Normal mg/dL (Normal) 08/10/17 01:20 Urine Ketones Negative mg/dL (NEGATIVE) 08/10/17 01:20 Urine Blood Negative (NEGATIVE) 08/10/17 01:20 Urine Nitrate Negative (NEGATIVE) 08/10/17 01:20 Urine Bilirubin Negative (NEGATIVE) 08/10/17 01:20 Urine Urobilinogen Normal mg/dL (0.2-1.0) 08/10/17 01:20 Ur Leukocyte Esterase Neg Ronan/uL (Negative) 08/10/17 01:20 Urine WBC (Auto) 2 /hpf (0-5) 08/10/17 01:20 Urine RBC (Auto) < 1 /hpf (0-3) 08/10/17 01:20 Ur Squamous Epith Cells 1 /hpf (0-5) 08/10/17 01:20 [id number]-6-Ufkbkdygqzuw Ab >150 CLAYTON (<=20) H 08/10/17 09:43 Beta-2 GPI IgG Ab <9 SGU (<=20) 08/10/17 09:43 Beta-2 GPI IgM Ab 13 SMU (<=20) 08/10/17 09:43 Phosphatidylserine IgG <10 U/mL (<10) 08/10/17 09:43 Phosphatidylserine IgA <20 U/mL (<20) 08/10/17 09:43 Phosphatidylserine IgM <25 U/mL (<25) 08/10/17 09:43 Anti-Phospholipid Intrp see note 08/10/17 09:43 Anti-Cardiolipin IgG Ab <14 GPL (<=14) 08/10/17 09:43 Anti-Cardiolipin IgA Ab <11 APL (<=11) 08/10/17 09:43 Anti-Cardiolipin IgM Ab <12 MPL (<=12) 08/10/17 09:43 Attending/Attestation - Attestation I have personally seen and examined this patient.: Yes I have fully participated in the care of the patient.: Yes I have reviewed all pertinent clinical information, including history, physical exam and plan: Yes Notes (Text): 08/15/17 16:47 Medical attending: Patient was seen and examined by me Agree with the above note by the resident The patient was not in any acute distress when we saw her. She is out of bed to chair eating breakfast. She reported that she was not having any chest pain and not having shortness of breath. The pain in the lower extremity with the DVT was also decreased as well. However we need to point out that she's been very immobile and mostly laying in bed or sitting in a chair. As mentioned previously she was taking Elquist for atrial fibrillation however when she came in she was determined to have pulmonary embolism as well as a lower extremity DVT there was also concerns with regards to peripheral arterial disease. Initially she was placed on Lovenox therapeutic doses given twice a day. Vascular surgery evaluated the patient sees she needed intervention for arterial disease a CT scan of the abdomen and pelvis with lower extremity runoff was ordered. It took a couple days to get her renal function down low enough for the study to be done. But once this was done she did have the CT of the abdomen and pelvis with lower extremity runoff and it was determined by vascular surgery that there shouldn't be any intervention done. With that in mind we discontinued the Lovenox we went back to the patient on Eliquis however she needs to be on it twice a day as she does have a DVT and pulmonary embolism. Because of pain, we did consider giving the patient NSAIDs here as well as and sent to go home with however because she is currently on Eliquis as well there is a risk for GI bleeding. So instead we opted to give the patient Percocet to go for pain thank you Jose David Madden
== END 2017-08-15 18:05 | disposition home or self-care (01) | DRG 78 ==
LOC: C.ER 20:06 → C.9E 23:26 → C.9I 08-10 13:36 → C.5S 08-12 13:40
PROVIDERS: ADMIT Family Medicine; ATTEND Family Medicine
DX: I26.99 Other pulmonary embolism without acute cor pulmonale (principal); I27.20 Pulmonary hypertension, unspecified; I48.91 Unspecified atrial fibrillation; I50.9 Heart failure, unspecified; I11.0 Hypertensive heart disease with heart failure; I25.10 Atherosclerotic heart disease of native coronary artery without angina pectoris; I70.92 Chronic total occlusion of artery of the extremities; I70.202 Unspecified atherosclerosis of native arteries of extremities, left leg; I71.2 Thoracic aortic aneurysm, without rupture; K29.70 Gastritis, unspecified, without bleeding; H54.7 Unspecified visual loss; E78.5 Hyperlipidemia, unspecified; E78.00 Pure hypercholesterolemia, unspecified; D72.829 Elevated white blood cell count, unspecified; D50.9 Iron deficiency anemia, unspecified; K59.09 Other constipation; R79.1 Abnormal coagulation profile; Z79.01 Long term (current) use of anticoagulants; Z79.899 Other long term (current) drug therapy; Z86.711 Personal history of pulmonary embolism; Z87.01 Personal history of pneumonia (recurrent); Z95.0 Presence of cardiac pacemaker

== ENCOUNTER 2018-06-14 10:22 | Emergency (ER) | payer MEDICAID, OTHER ==
[2018-06-14 10:22] VITALS: BMI 39.2
[2018-06-14] MEDS ORDERED: Naproxen 550 mg Tab PO STA (10:51)
[2018-06-14] MEDS ORDERED: Naproxen 550 mg Tab PO ONE (10:57)
--- NOTE | 2018-06-14 11:01 | C.PDOC ---
History Of Present Illness 88 year old female with PMHx DVT on Eliquis, and PE presents to the ED complaining of left upper right arm pain that began last night. Pain is worse to left upper arm and shoulder. Denies any trauma/injuries. Reports compliance with Eliquis medications. Denies any fever, chills, weakness, or numbness. Time Seen by Provider: 06/14/18 10:42 Chief Complaint (Nursing): Upper Extremity Problem/Injury History Per: Patient History/Exam Limitations: no limitations Onset/Duration Of Symptoms: Hrs Current Symptoms Are (Timing): Still Present Quality: "Pain" Past Medical History Reviewed: Historical Data, Nursing Documentation, Vital Signs Vital Signs: Last Vital Signs Temp 98.1 F 06/14/18 10:26 Pulse 79 06/14/18 10:26 Resp 18 06/14/18 10:26 BP 156/78 H 06/14/18 10:26 Pulse Ox 98 06/14/18 10:26 - Medical History PMH: Atrial Fibrillation, CAD, CHF, HTN, Hypercholesterolemia, Pneumonia Denies: Chronic Kidney Disease Other Surgeries: Hx of surgeries Family History: States: No Known Family Hx - Social History Hx Tobacco Use: No Hx Alcohol Use: Yes (beer) Hx Substance Use: No - Immunization History Hx Tetanus Toxoid Vaccination: No Hx Influenza Vaccination: No Hx Pneumococcal Vaccination: No Review Of Systems Except As Marked, All Systems Reviewed And Found Negative. Constitutional: Negative for: Fever, Chills Musculoskeletal: Positive for: Shoulder Pain (left), Arm Pain (left upper arm pain ) Neurological: Negative for: Weakness, Numbness Physical Exam - Physical Exam Appears: Non-toxic, No Acute Distress Skin: Warm, Dry, No Rash Head: Normacephalic Eye(s): bilateral: Normal Inspection Nose: Normal Oral Mucosa: Moist Neck: Supple Chest: Symmetrical Cardiovascular: Rhythm Regular Respiratory: Normal Breath Sounds, No Rales, No Rhonchi, No Wheezing Extremity: Normal ROM, Tenderness (left shoulder and upper arm tenderness ), Capillary Refill (less than 2 sec to left arm ), No Deformity (left arm ), No Swelling (left arm ) Neurological/Psych: Oriented x3, Normal Speech, Normal Motor, Normal Sensation Gait: Steady ED Course And Treatment O2 Sat by Pulse Oximetry: 98 (RA) Pulse Ox Interpretation: Normal Medical Decision Making Medical Decision Making: suspect arthrits ro dvt, fx. Plan - Naproxen 550mg PO - XR left humerus - XR left shoulder - Venuous Duplex Scan LUE pt reassesed all symptoms resolved. pain resolved. us neg. good pulses ext warm complaint with eliquis. xr neg . no cp no cardipulm complaints . palpable ttp. doubt cardia c etiology. Disposition - Disposition Referrals: [facility] [Outside] [facility] [Outside] Disposition: HOME/ ROUTINE Disposition Time: 12:00 Condition: STABLE Additional Instructions: follow up with your doctor/clinic. return to any er with worsening symptoms or concerns. Prescriptions: RX: Naproxen 500 mg PO BID PRN #14 tab PRN Reason: Pain, Mild (1-3) Instructions: Shoulder Sprain, Osteoarthritis (DC), Arthritis and Exercise Forms: [employer] (Maori) - Clinical Impression Clinical Impression: Arm pain - Scribe Statement The provider has reviewed the documentation as recorded by the Scribshawn Rainey All medical record entries made by the Scribe were at my direction and personally dictated by me. I have reviewed the chart and agree that the record accurately reflects my personal performance of the history, physical exam, medical decision making, and the department course for this patient. I have also personally directed, reviewed, and agree with the discharge instructions and disposition.
--- NOTE | 2018-06-14 13:44 | RAD ---
PROCEDURE: Left shoulder radiographs Left humerus radiographs HISTORY: pain COMPARISON: None available. FINDINGS: BONES: Osseous demineralization. No acute displaced fracture. The distal clavicle and underlying ribs appear intact. JOINTS: No acute dislocation. Acromioclavicular arthropathy. At least 2 foci of calcification adjacent to the consistent with calcific tendinitis. SOFT TISSUES: Soft tissues appear unremarkable. No evidence of radiopaque foreign body. Partially imaged cardiomegaly. Left-sided single lead pacer. Atherosclerotic calcifications of an ectatic aorta. Biapical pleural thickening. IMPRESSION: Calcific tendinitis. No acute displaced fracture or dislocation evident. If symptoms persist or if there is continued clinical concern, x-ray follow-up in 7-10 days should be considered.
[2018-06-14 14:27] VITALS: BP 148/85; PULSE 81; RESP 20; TEMP 97.3
[2018-06-14 14:36] VITALS: O2SAT 98
--- NOTE | 2018-06-15 13:36 | VASCLAB ---
Date of service: 06/14/2018 PROCEDURE: Left Upper Extremity Venous Duplex Exam HISTORY: pain in the left upper extremity, Hx of Leg DVT, on Eliquis. PRIORS: None. TECHNIQUE: Left upper extremity, internal jugular, subclavian, axillary, brachial, ulnar, radial, basilic and upper cephalic veins were evaluated. Flow was assessed with color Doppler, compressibility, assessment of phasic flow and augmentation response. Report prepared by Krishna Cid, RVT FINDINGS: LEFT: 1. Internal Jugular: 1.1. Compressibility - Fully compressible: Thrombus - None : Flow - Phasic: Augmentation -Normal 2. Subclavian: 2.1. Compressibility - Fully compressible: Thrombus - None : Flow - Phasic: Augmentation -Normal. 3. Axillary: 3.1. Compressibility - Fully compressible: Thrombus - None : Flow - Phasic: Augmentation -Normal 4. Brachial: 4.1. Compressibility - Fully compressible: Thrombus - None: Flow - Phasic: Augmentation -Normal 4.2. Ulnar: 4.3. Compressibility - Fully compressible: Thrombus - None 5. Radial: 5.1. Compressibility - Fully compressible: Thrombus - None 5.2. Cephalic: 5.3. Compressibility - Fully compressible: Thrombus - None: Flow - Phasic: Augmentation -Normal 6. Basilic: 6.1. Compressibility - Fully compressible: Thrombus - None: Flow - Phasic: Augmentation -Normal OTHER FINDINGS: Left: None. IMPRESSION: Left: No evidence of deep and superficial vein thrombosis of the left upper extremity. Normal venous flow noted in the right internal jugular and right subclavian veins.
== END 2018-06-14 14:29 | disposition home or self-care (01) ==
LOC: C.ER 10:22
DX: M79.602 Pain in left arm (principal); E78.00 Pure hypercholesterolemia, unspecified; I48.91 Unspecified atrial fibrillation; I50.9 Heart failure, unspecified; I10 Essential (primary) hypertension; Z86.718 Personal history of other venous thrombosis and embolism; Z79.01 Long term (current) use of anticoagulants; I25.10 Atherosclerotic heart disease of native coronary artery without angina pectoris